=== PATIENT | male | born 1935 | race Caucasian/White ===

== ENCOUNTER → 2017-01-08 | Outpatient (CLI) | payer MEDICARE ==
[2016-06-03 08:57] VITALS: BP 121/67
[~2017-01-08] MED LIST: ALLO300T PO; ASPI-630 PO; ASPI325T8 PO; ATEN25TA PO; ATOR40TA59 PO; BUPR150T6 PO; CLOP75TA PO; COLC0.6T34 PO; FISH1CAP PO; GABA-586 PO; HYDR10TA2 PO; IBUP-1027 PO; IBUP200T58 PO; LISI40TA PO; MULT-658 PO; MULT1TAB52 PO; NIFE60TA16 PO; OMEG1CAP38 PO; TRIA100C7 PO; [UNRECOGNIZED DRUG - OTHER]; [UNRECOGNIZED DRUG - OTHER]
--- NOTE | 2017-01-08 12:53 | CARD ---
APPROVED REPORT EXAM: Two-dimensional and M-mode echocardiogram with Doppler and color Doppler. Other Information Quality : GoodHR: 67bpm Rhythm : NSR INDICATION Cardiac Disease: CAD RISK FACTORS Hypertension Hyperlipidemia Family History 2D DIMENSIONS RVDd3.0 (2.9-3.5cm)Left Atrium(2D)4.5 (1.6-4.0cm) IVSd1.0 (0.7-1.1cm)Aortic Root(2D)3.7 (2.0-3.7cm) LVDd5.3 (3.9-5.9cm)LVOT Diameter2.2 (1.8-2.4cm) PWd1.0 (0.7-1.1cm)LVDs3.6 (2.5-4.0cm) FS (%) 31.7 %SV81.6 ml LVEF(%)59.2 (>50%) Aortic Valve AoV Peak Jose.123.5cm/sAoV VTI29.0cm AO Peak GR.6.1mmHgLVOT Peak Jose.115.7cm/s AO Mean GR.3mmHgAVA (VMAX)3.70cm2 Mitral Valve MV E Cjgtvwqq66.7cm/sMV E Peak Gr.3mmHg MV DECEL [id number] A Cyzjsczw33.1cm/s MV E Mean Gr.1mmHgE/A Ratio1.1 MV A [id number] Pulmonary Valve PV Peak Tkkewhqg25.7cm/s Tricuspid Valve TR P. Hfsyhcme056ph/sTR Peak Gr.30mmHg Pulmonary Vein S1 Gfswbvkn01.7cm/sD2 Bwlyywwu52.4cm/s PVa [id number] LEFT VENTRICLE The left ventricle is normal size. There is normal left ventricular wall thickness. The left ventricu lar systolic function is normal. The Ejection Fraction is 55-60%. There is normal LV segmental wall m otion. The left ventricular diastolic function and filling is normal for age. RIGHT VENTRICLE The right ventricle is normal size. There is normal right ventricular wall thickness. The right ventr icular systolic function is normal. There is a pacemaker lead in the right ventricle. ATRIA The left atrium is mildly dilated. The right atrium size is normal. The interatrial septum is intact with no evidence for an atrial septal defect or patent foramen ovale as noted on 2-D or Doppler imagi ng. AORTIC VALVE The aortic valve is mildly sclerotic. The aortic valve is trileaflet. Doppler and Color Flow revealed no significant aortic regurgitation. There is no significant aortic valvular stenosis. MITRAL VALVE Mitral annular calcification is mild. The mitral valve leaflets are thickened. There is no evidence o f mitral valve prolapse. There is no mitral valve stenosis. Doppler and Color Flow revealed mild to m oderate mitral regurgitation. The jet is posteriorly directed. TRICUSPID VALVE Doppler and Color Flow revealed mild tricuspid regurgitation. The pulmonary artery systolic pressure is estimated at 33 mmHg. There is mild pulmonary hypertension. PULMONIC VALVE The pulmonic valve is not well visualized but appears to open well. Doppler and Color Flow revealed m ild pulmonic valvular regurgitation. There is no pulmonic valvular stenosis by spectral Doppler. GREAT VESSELS The aortic root is mildly enlarged. The ascending aorta is normal in size. The pulmonary artery is no rmal. The IVC is normal in size and collapses >50% with inspiration. PERICARDIAL EFFUSION There is no evidence of significant pericardial effusion. Critical Notification Critical Value: No <Conclusion> The left ventricular systolic function is normal. The Ejection Fraction is 55-60%. There is normal LV segmental wall motion. The left atrium is mildly dilated. Mild to moderate mitral regurgitation. Mild tricuspid regurgitation. The pulmonary artery systolic pressure is estimated at 33 mmHg. There is no evidence of significant pericardial effusion.
== END | disposition home or self-care (01) ==
LOC: ECHO 09:04
PROVIDERS: ATTEND Internal Medicine Cardiovascular Disease
DX: I08.1 Rheumatic disorders of both mitral and tricuspid valves (principal)
CPT/HCPCS: 93306

== ENCOUNTER → 2017-08-03 | Outpatient (CLI) | payer MEDICARE | END | disposition home or self-care (01) | LOC: US 11:36 | DX: I70.203 Unspecified atherosclerosis of native arteries of extremities, bilateral legs (principal) | CPT/HCPCS: 93925 ==

== ENCOUNTER 2018-08-16 08:48 | Inpatient (IN) | payer MEDICARE ==
[2018-08-16] VITALS (13 sets, daily range): BP systolic 119–193; BP diastolic 68–90
[~2018-08-16] VITALS: Ht 170.2 cm; Wt 84.1 kg
[~2018-08-16 08:48] MED LIST changes: -GABA-586 PO; +GABA300C18 PO; +LISI-130 PO; -LISI40TA PO
[2018-08-16 09:08] LABS: HEMOGLOBIN 12.3 g/dL (13.0-17.5); RED BLOOD COUNT 3.71 x10^6/uL (4.30-5.70); RED CELL DISTRIBUTION WIDTH 14.1 % (11.5-14.5); WHITE BLOOD COUNT 6.7 x10^3/uL (4.0-11.0)
[2018-08-16 09:18] LABS: PROTHROMBIN TIME PATIENT 13.6 SEC (11.7-14.0)
[2018-08-16] MEDS ORDERED: ATEN50TA PO (09:18)
[2018-08-16] MEDS ORDERED: ALLO300T PO (09:18)
[2018-08-16] MEDS ORDERED: MELO7.5T29 PO (09:25)
[2018-08-16] MEDS ORDERED: GABA-585 PO (09:25)
[2018-08-16] MEDS ORDERED: GABA-689 PO (09:25)
[2018-08-16] MEDS ORDERED: CLOP75TA57 PO (09:25)
[2018-08-16] MEDS ORDERED: LISI-130 PO (09:25)
[2018-08-16] MEDS ORDERED: LIDO30CR TP (09:25)
[2018-08-16] MEDS ORDERED: ATOR40TA59 PO (09:25)
[2018-08-16] MEDS ORDERED: OMEG-117 PO (09:31)
[2018-08-16] MEDS ORDERED: ROPI1TAB PO (09:31)
[2018-08-16] MEDS ORDERED: IBUP-1027 PO (09:31)
[2018-08-16 09:33] LABS: CALCIUM 9.1 mg/dL (8.5-10.1); GFR 71.7; POTASSIUM 4.5 mmol/L (3.5-5.1)
[2018-08-16] MEDS ORDERED: LIDOCAINE 1% PF 2 ML VIAL. ONE (09:39)
[2018-08-16] MEDS ORDERED: IOHEXOL 300 MG/ML 100ML VIAL. ONE ×2 (09:39→13:59)
[2018-08-16] MEDS ORDERED: VERAPAMIL 5 MG/2 ML VIAL. ONE (13:09)
[2018-08-16] MEDS ORDERED: NITROGLYCERIN 200 MCG/2 ML SYRINGE FOR CATH/VASC LAB. ONE (13:09)
[2018-08-16] MEDS ORDERED: HEPARIN for IV BOLUS 10,000 UNIT/10 ML VIAL. ONE (13:09)
[2018-08-16] MEDS ORDERED: fentaNYL PF VIAL 100 MCG/2 ML VIAL ONE (13:09)
[2018-08-16] MEDS ORDERED: MIDAZOLAM HCL/PF 2 MG/2 ML VIAL. ONE (13:09)
[2018-08-16] MEDS ORDERED: LIDOCAINE 1% PF 2 ML VIAL. INJ ONE (14:00)
[2018-08-16] MEDS ORDERED: NITROGLYCERIN 200 MCG/2 ML SYRINGE FOR CATH/VASC LAB. IART ONE (14:00)
[2018-08-16] MEDS ORDERED: CONTRAST GIVEN. MC PRN (14:00)
[2018-08-16] MEDS ORDERED: HEPARIN for IV BOLUS 10,000 UNIT/10 ML VIAL. IART ONE (14:00)
[2018-08-16] MEDS ORDERED: IOHEXOL 300 MG/ML 100ML VIAL. IART ONE (14:00)
[2018-08-16] MEDS ORDERED: BIVALIRUDIN 250 MG VIAL. IV ONE ×2 (14:00→14:30)
[2018-08-16] MEDS ORDERED: fentaNYL PF VIAL 100 MCG/2 ML VIAL IV ONE (14:00)
[2018-08-16] MEDS ORDERED: VERAPAMIL 5 MG/2 ML VIAL. IART ONE (14:00)
[2018-08-16] MEDS ORDERED: MIDAZOLAM HCL/PF 2 MG/2 ML VIAL. IV ONE (14:00)
[2018-08-16] MEDS ORDERED: IBUPROFEN 400 MG TABLET. PO PRN (16:15)
[2018-08-16] MEDS ORDERED: hydrOXYzine 10 MG TABLET PO PRN (16:15)
--- NOTE | 2018-08-16 16:45 | NUR ---
Gonzalez catheter placed per aseptic measure. Inserted with little difficulty.
--- NOTE | 2018-08-16 16:56 | CARD ---
MR#: [id number] Date of Study: 08/16/2018 Ordering Physician: ANGELA OSBORN, Referring Physician: ANGELA OSBORN Tech: VIRGINIA LANDERS RTR APPROVED REPORT Technologist: VIRGINIA LANDERS RTR Nurse: Rosio Velez R.N. Procedure(s) performed: 1. Left heart catheterization, selective coronary angiography and left ventr iculography via right transradial approach 2. Successful complex PCI/stents placement to the right coronary artery Moderate sedation: 80 min INDICATION The indication(s) include : unstable angina . CSHA Clinical Frailty Scale [facility] Clinical Frailty Scale: Mildly Frail Heart Failure Heart Failure: No PROCEDURE NARRATIVE After explaining the risks, benefits and alternative options, informed consent was obtained from prosper ent. Patient was brought to the cardiac Rn Chemical Dependency and right wrist was prepped and draped in the usual fashion after confirming a positive modified Ankit's test. Arterial access was obtained in the mclaren thumb region t radial artery and a 6 Solomon Islander sheath was inserted. 6 Solomon Islander Camilo catheter was used to perform lef t ventriculography. Attempts to engage the coronary arteries. This catheter were unsuccessful. 6 Fren ch JL 3.5 and 6 Solomon Islander JR4 catheters were used to engage the left and right coronary arteries and sneha ective angiography was performed. FINDINGS 1. Hemodynamics: Left ventricular end-diastolic pressure of 12 mmHg. No pullback gradient across th e aortic valve. 2. Left ventriculography: Normal left ventricle systolic function with ejection fraction estimated at 60%. No significant mitral regurgitation seen. 3. Coronary angiography: a. The left main coronary artery arose from the left sinus of Valsalva, gave rise to the left anteri or descending and left circumflex arteries and did not show any significant stenosis. b. The left anterior descending artery showed widely patent previous to placed stent in the midsegme nt. c. The left circumflex artery showed 50% bifurcation lesion involving the midsegment of the left cir cumflex artery and small to medium caliber second obtuse marginal branch. The first obtuse marginal b ranch showed 30% proximal segment stenosis. d. The right coronary artery was a large and dominant vessel arising from the right sinus of Valsalv a showed 50% stenosis in the distal segment, 40% in-stent restenosis within the distal portion of the stent in the mid to distal segment. There was 80% heavily calcified lesion noted in the midsegment p roximal to the previously placed stent. INTERVENTION The right coronary artery was engaged with a 6 Solomon Islander JR4 guide catheter and the stenosis in the mids egment was crossed with a 0.014 inch Light Blue Optics Pro water guidewire. Attempts to advance balloons across t he midsegment were unsuccessful due to heavy calcification in a tortuous segment. A 6 Solomon Islander guide li ner inner catheter was then advanced and the tip was positioned in the proximal to midsegment. The st enosis was then dilated with 3.0 x 15 mm euphora balloon followed by 3.0 x 12 mm noncompliant NC euph ora balloons. Subsequently, the long calcified lesion was treated with overlapping 3.0 x18 and 3.5 x 15 mm resolute jose drug-eluting stents. Follow-up angiography showed resolution of the stenosis to 0 % with UZIEL-3 distal flow. Patient tolerated the procedure well. Hemostasis was achieved using TR ban d. There were no immediate complications. Conclusion 1. 80% heavily calcified stenosis involving the midsegment of the right coronary artery. The previou sly placed stent in the right coronary artery showed 40% in-stent restenosis and the stent in left an terior descending artery was widely patent. 2. Successful, takes PCI/drug eluting stent placement to the right coronary artery. 3. Normal left ventricle systolic function with ejection fraction estimated at 60%. Recommendations 1. Aspirin 325 mg daily for one month followed by 81 mg daily 2. Plavix 75 mg daily for preferably one year 3. Cardiovascular risk factor modification Signed by : Angela Osborn, Electronically Approved : 08/16/2018 16:55:59
--- NOTE | 2018-08-16 17:01 | PDOC ---
MODERATE SEDATION ASSESSMENT RISKS/ALTERNATIVES Risks/Alternatives Risks and alternatives of this type of sedation and procedure discussed with: RISK/ALTERNATIVES: Patient H & P ON CHART H & P H & P on chart and reviewed for co-morbid conditions and appropriate labs. H&P ON CHART: Yes STATUS PREG STATUS ASSESSED: N/A MEDS/ALLERGIES REVIEWED Meds/Allergies Reviewed Medications and Allergies including time and route of recently administered narcotics and sedatives. MEDS/ALLERGIES REVIEWED: Yes ASA RATING ASA RATING: III AIRWAY ASSESSMENT Airway Assessment Airway patency, oral function limitations, presence of caps, crowns, dentures, partials, and ability to extend neck assessed. AIRWAY ASSESSMENT: Yes MALLAMPATI SCORE MALLAMPATI SCORE: II PRE-SEDATION ASSESSMENT PRE-SEDATION ASSESSMENT: Yes ANGELA OSBORN MD Aug 16, 2018 17:01
[2018-08-16] MEDS ORDERED: IV 1/2 NORMAL SALINE 1,000 ML IV SCH (17:02)
[2018-08-16] MEDS ORDERED: NITROGLYCERIN SUBLINGUAL 0.4 MG BOTTLE OF 25. SL PRN (17:15)
--- NOTE | 2018-08-16 17:30 | NUR ---
Patient complained of bladder getting arboleda. Bleeding noticed around sanchez and not draining. Called Dr. Booth and notified and received order to consult Urology.
--- NOTE | 2018-08-16 18:00 | NUR ---
Removed prior sanchez catheter and inserted three way catheter with little difficulty. Bloody fluid drained approximately 200ml then stopped. Stopped CBI fluid. Attempted to manually irrigated without success.
--- NOTE | 2018-08-16 18:30 | NUR ---
Spoke with GISSELLE Olivia regard to unsuccessful attempts of CBI.
--- NOTE | 2018-08-16 18:59 | RAD ---
PQRS Compliance statement: One or more of the following individualized dose reduction techniques were utilized for this examination: 1. Automated exposure control. 2. Adjustment of the mA and/or kV according to patient size. 3. Use of iterative reconstruction technique. Indication:sanchez catheter not draining, non contrast, pt had heart cath today, no priors TECHNIQUE: CT abdomen and pelvis without IV contrast with multiplanar reformats. COMPARISON: None FINDINGS: Limited evaluation of solid abdominal and pelvic organs due to lack of IV contrast. Partially visualized are pacemaker leads in the right heart. Heart is normal in size. Coronary artery calcifications. No pericardial or pleural effusion. Subpleural reticular opacities in the visualized lung bases likely chronic interstitial changes. Noncontrast appearance of the liver, spleen, gallbladder, pancreas, adrenals and kidneys are within normal limits. Excreted contrast is seen opacifying the bilateral renal collecting system and bladder. No free pelvic fluid or ascites. Moderate diffuse atherosclerotic disease of the abdominal aorta and bilateral iliac arteries. No bowel obstruction. Diffuse colonic diverticulosis. Normal appendix. Urinary bladder is significantly distended. Ill-defined filling defect is seen in the bladder base. Small amount of emphysema is seen in the perirectal soft tissue. Large amount of stool is seen in the rectum. Sanchez catheter is seen with its balloon in the penile urethra. Small right inguinal hernia containing ascitic fluid. No pneumoperitoneum. Peripancreatic and heather hepatis prominent and mildly enlarged lymph nodes are seen, the largest in the heather hepatis measuring 2.8 x 1.3 cm. No suspicious bony lesion. Status post posterior fusion at L4-S1. IMPRESSION: Limited evaluation of solid abdominal and pelvic organs due to lack of IV contrast.. 1. The balloon of the Sanchez catheter is in the proximal penile urethra. 2. Distended urinary bladder and bilateral renal collecting system. 3. Perirectal and periprosthetic emphysema. Differential diagnoses includes rectal injury or prostatic urethral injury secondary to malpositioning of the Sanchez catheter. 4. Peripancreatic and heather hepatis lymph nodes, nonspecific may be reactive. 5. Ill-defined filling defect in the base of the bladder most likely hematoma. Findings discussed with david Jay RN on 08/16/2018 at C6-7 p.m. Electronically signed by: Saji Gonzalez DO (08/16/2018 6:57 PM) [facility]
--- NOTE | 2018-08-16 19:05 | NUR ---
NOTIFIED GISSELLE BASS REGARD TO CT RESULT AND RECEIVED ORDER.
--- NOTE | 2018-08-16 19:20 | NUR ---
DEFLATED THREE WAY CATHETER, ADVANCED FURTHER INTO BLADDER AND SMALL AMOUNT OF BLOODY OUT PUT DRAINED WITH BLOOD CLOTS BUT STOPPED FLOWING OUT. CALLED GISSELLE BASS TO NOTIFY.
--- NOTE | 2018-08-16 20:26 | NUR ---
KALI PITTS RETURNED CALL WILL BE IN SHORTLY TO SEE PATIENT, PT UNCOMFORTABLE AT THIS TIME, STILL NO URINE OUTPUT, WILL CONT TO MONITOR. PMRN
[2018-08-16] MEDS: MORPHINE SULFATE 4 MG/ML VIAL. IV PRN (20:45)
[2018-08-16] MEDS: ATENOLOL 50 MG TABLET. PO SCH (21:00)
[2018-08-16] MEDS ORDERED: ATORVASTATIN CALCIUM 20 MG TABLET PO SCH (21:00)
[2018-08-16] MEDS ORDERED: GABAPENTIN 400 MG CAPSULE. PO SCH (21:00)
[2018-08-16] MEDS ORDERED: ALLOPURINOL 300 MG TABLET. PO SCH (21:00)
[2018-08-16] MEDS: LIDOCAINE/PRILOCAINE TOPICAL CREAM 5GM TUBE. TP SCH (21:00)
[2018-08-16] MEDS: COLCHICINE 0.6 MG TABLET PO SCH (21:00)
[2018-08-16] MEDS: rOPINIRole 1 MG TABLET. PO SCH (21:00)
--- NOTE | 2018-08-16 21:07 | PDOC2 ---
HARRISKALI Morin CATALOGUE MAKER 08/16/187: UROLOGY CONSULT Date of Consult Date of Consult DATE: 08/16/18 TIME: 20:59 Identification/Chief Complaint Chief Complaint Bloody urine after sanchez catheter insertion, no urine return, patient is feeling full, bladder full on CT Source Source: Caregiver, Chart review, Patient History of Present Illness Reason for Visit: Patient is here for cardiac catheterization and reported a history of needing to do I and O catheterization normally. He also has a history of urethral strictures intermittently. Was given the choice of just continuing with I and O catheterization or having a Sanchez placed. He chose to have Sanchez placed and after this happened he complained of feeling full and not emptying his bladder well.. Nursing staff also noticed bloody urine in the Sanchez bag and device was not draining or functioning properly. The urine return also had a lot of clots. Orders were given to remove old Sanchez and place new 3 way sanchez, empty bladder and start CBI, but this could not be started either. They then tried to insert a 16 Divehi sanchez catheter. This was likewise unsuccessful. LOVE Iglesias attempted to cath patient times one last night around 840 pm and was unsuccessful. Finally , Dr. Oliveros was able to get a 14 maltese catheter in and since then urine has been red, but draining well from Sanchez catheter. He usually sees Dr. Dawson of the [facility] in [place] for his Urology care and does not know when his next appointment with him is. Past Medical History Renal/: Other (Urethral strictures, empties his bladder through I and O cath) Current Medications Current Medications Current Medications Allopurinol (Zyloprim) 300 mg HS PO ; Start 08/16/18 at 21:00 Aspirin (Children'S Aspirin) 81 mg DAILY PO ; Start 08/17/18 at 09:00; Stop at 09:00; Status DC Aspirin (Ecotrin) 325 mg DAILYWBKFT PO ; Start 08/17/18 at 08:00 Atenolol (Tenormin) 25 mg BID PO ; Start 08/16/18 at 21:00 Atorvastatin Calcium (Lipitor) 20 mg QHS PO ; Start 08/16/18 at 21:00 Bivalirudin (Angiomax) 250 mg 1X ONCE IV Last administered on 08/16/18at 14:52 ; Start 08/16/18 at 14:30; Stop 08/16/18 at 14:31; Status DC Bivalirudin (Angiomax) 250 mg STK-MED ONCE IV ; Start 08/16/18 at 14:00; Stop at 14:01; Status DC Bupropion HCl (Wellbutrin Xl) 150 mg DAILY PO ; Start 08/17/18 at 09:00 Clopidogrel Bisulfate (Plavix) 75 mg DAILY PO ; Start 08/17/18 at 09:00 Colchicine (Colcrys) 0.6 mg BID PO ; Start 08/16/18 at 21:00 Fentanyl Citrate (Fentanyl 2ml Vial) 50 mcg 1X ONCE IV Last administered on at 14:53; Start 08/16/18 at 14:00; Stop 08/16/18 at 14:01; Status DC Fentanyl Citrate (Fentanyl 2ml Vial) 100 mcg STK-MED ONCE .ROUTE ; Start at 13:09; Stop 08/16/18 at 13:10; Status DC Fish Oil (Fish Oil) 1,000 mg DAILY PO ; Start 08/17/18 at 09:00 Gabapentin (Neurontin) 100 mg BID92 PO ; Start 08/17/18 at 09:00 Gabapentin (Neurontin) 1,200 mg HS PO ; Start 08/16/18 at 21:00 Heparin Sodium (Porcine) (Heparin Sodium) 2,500 unit 1X ONCE IART Last administered on 08/16/18at 14:54; Start 08/16/18 at 14:00; Stop 08/16/18 at 14:01 ; Status DC Heparin Sodium (Porcine) (Heparin Sodium) 10,000 unit STK-MED ONCE .ROUTE ; Start 08/16/18 at 13:09; Stop 08/16/18 at 13:10; Status DC Heparin Sodium/ Sodium Chloride 500 ml @ As Directed STK-MED ONCE .ROUTE ; Start 08/16/18 at 09:39; Stop 08/16/18 at 09:40; Status DC Heparin Sodium/ Sodium Chloride (HEPARIN for ARTERIAL LINE FLUSH) 1,000 unit 1X ONCE IART Last administered on 08/16/18at 14:51; Start 08/16/18 at 14:00; Stop 08/16/18 at 14:01; Status DC Hydroxyzine HCl (Atarax) 10 mg HS PRN PO ITCHING; Start 08/16/18 at 16:15 Ibuprofen (Motrin) 400 mg PRN Q6HRS PRN PO INFLAMMATION; Start 08/16/18 at 16: 15 Info (CONTRAST GIVEN -- Rx MONITORING) 1 each PRN DAILY PRN MC SEE COMMENTS; Start 08/16/18 at 14:00; Stop 08/18/18 at 13:59 Iohexol (Omnipaque 300 Mg/ml) 100 ml 1X ONCE IART Last administered on at 14:51; Start 08/16/18 at 14:00; Stop 08/16/18 at 14:01; Status DC Iohexol (Omnipaque 300 Mg/ml) 100 ml STK-MED ONCE .ROUTE ; Start 08/16/18 at 09: 39; Stop 08/16/18 at 09:40; Status DC Iohexol (Omnipaque 300 Mg/ml) 100 ml STK-MED ONCE .ROUTE ; Start 08/16/18 at 13: 59; Stop 08/16/18 at 14:00; Status DC Lidocaine HCl (Xylocaine-Mpf 1% 2ml Vial) 0.5 ml 1X ONCE INJ Last administered on 08/16/18at 14:52; Start 08/16/18 at 14:00; Stop 08/16/18 at 14:01 ; Status DC Lidocaine HCl (Xylocaine-Mpf 1% 2ml Vial) 2 ml STK-MED ONCE .ROUTE ; Start 08/16 at 09:39; Stop 08/16/18 at 09:40; Status DC Lidocaine/ Prilocaine (Emla) 1 loren TID TP ; Start 08/16/18 at 21:00 Lisinopril (Prinivil) 20 mg DAILY PO ; Start 08/17/18 at 09:00 Midazolam HCl (Versed) 1 mg 1X ONCE IV Last administered on 08/16/18at 14:53; Start 08/16/18 at 14:00; Stop 08/16/18 at 14:01; Status DC Midazolam HCl (Versed) 2 mg STK-MED ONCE .ROUTE ; Start 08/16/18 at 13:09; Stop 08/16/18 at 13:10; Status DC Morphine Sulfate (Morphine Sulfate) 2 mg PRN Q4HRS PRN IV PAIN; Start 08/16/18 at 20:30 Multivitamins (Thera M Plus) 1 tab DAILY PO ; Start 08/17/18 at 09:00 Nifedipine (Procardia Xl) 60 mg DAILY PO ; Start 08/17/18 at 09:00 Nitroglycerin (Nitroglycerin) 200 mcg 1X ONCE IART Last administered on at 14:51; Start 08/16/18 at 14:00; Stop 08/16/18 at 14:01; Status DC Nitroglycerin (Nitroglycerin) 200 mcg STK-MED ONCE .ROUTE ; Start 08/16/18 at 13 :09; Stop 08/16/18 at 13:10; Status DC Nitroglycerin (Nitrostat) 0.4 mg PRN Q5MIN PRN SL CHEST PAIN; Start 08/16/18 at 17:15 Ropinirole HCl (Requip) 1 mg BID PO ; Start 08/16/18 at 21:00 Sodium Chloride 1,000 ml @ 100 mls/hr Q10H IV ; Start 08/16/18 at 17:02 Verapamil HCl (Verapamil) 2.5 mg 1X ONCE IART Last administered on 08/16/18at 14:53; Start 08/16/18 at 14:00; Stop 08/16/18 at 14:01; Status DC Verapamil HCl (Verapamil) 5 mg STK-MED ONCE .ROUTE ; Start 08/16/18 at 13:09; Stop 08/16/18 at 13:10; Status DC Allergies Allergies: Coded Allergies: tamsulosin (Verified Adverse Reaction, Severe, syncope, 06/03/16) ROS Review Of Systems: CONSTITUTIONAL: No fever or chills EYES: No recent changes SKIN: No rash or itching CARDIOVASCULAR: No chest pain, syncope, palpitations, or edema RESPIRATORY: No SOB or cough GASTROINTESTINAL: + bladder pain, feels full. NEUROLOGICAL: No headaches or weakness ENDOCRINE: No cold or heat intolerance GENITOURINARY: + hematuria after catheter placement. MUSCULOSKELETAL: No back pain or joint pain LYMPHATICS: No enlarged lymph nodes PSYCHIATRIC: No anxiety or depression Physical Exam Physical Exam: General: Pleasant, no acute distress, well groomed Eyes: conjunctiva anicteric, eyes full range of motion ENT: moist oral mucosa, normal dentition Neck: Trachea midline, no masses Respiratory: unlabored breathing, not using accessory muscles, Abdomen: distended bladder. : + Uncirc phallus, normal meatus. Some blood oozing from meatus. Skin: no rashes or skin lesions on visualized skin Psych: normal mood, affect. Alert and oriented x 3. Vitals VITALS Vital Signs Date Time Temp Pulse Resp B/P (MAP) Pulse Ox O2 Delivery O2 Flow Rate FiO2 08/16/18 19:10 97.7 60 20 163/78 (106) 100 Room Air 97.7 08/16/18 15:30 2.0 Labs Labs Laboratory Tests Test 08/16/18 09:00 White Blood Count 6.7 x10^3/uL (4.0-11.0) Red Blood Count 3.71 x10^6/uL (4.30-5.70) Hemoglobin 12.3 g/dL (13.0-17.5) Hematocrit 36.0 % (39.0-53.0) Mean Corpuscular Volume 97 fL (79-100) Mean Corpuscular Hemoglobin 33 pg (25-35) Mean Corpuscular Hemoglobin Concent 34 g/dL (31-37) Red Cell Distribution Width 14.1 % (11.5-14.5) Platelet Count 209 x10^3/uL (140-400) Prothrombin Time 13.6 SEC (11.7-14.0) Prothromb Time International Ratio 1.1 (0.8-1.1) Sodium Level 138 mmol/L (136-145) Potassium Level 4.5 mmol/L (3.5-5.1) Chloride Level 101 mmol/L (98-107) Carbon Dioxide Level 26 mmol/L (21-32) Anion Gap 11 (6-14) Blood Urea Nitrogen 17 mg/dL (8-26) Creatinine 1.0 mg/dL (0.7-1.3) Estimated GFR (Cockcroft-Gault) 71.7 Glucose Level 95 mg/dL (70-99) Calcium Level 9.1 mg/dL (8.5-10.1) Laboratory Tests Test 08/16/18 09:00 White Blood Count 6.7 x10^3/uL (4.0-11.0) Red Blood Count 3.71 x10^6/uL (4.30-5.70) Hemoglobin 12.3 g/dL (13.0-17.5) Hematocrit 36.0 % (39.0-53.0) Mean Corpuscular Volume 97 fL (79-100) Mean Corpuscular Hemoglobin 33 pg (25-35) Mean Corpuscular Hemoglobin Concent 34 g/dL (31-37) Red Cell Distribution Width 14.1 % (11.5-14.5) Platelet Count 209 x10^3/uL (140-400) Prothrombin Time 13.6 SEC (11.7-14.0) Prothromb Time International Ratio 1.1 (0.8-1.1) Sodium Level 138 mmol/L (136-145) Potassium Level 4.5 mmol/L (3.5-5.1) Chloride Level 101 mmol/L (98-107) Carbon Dioxide Level 26 mmol/L (21-32) Anion Gap 11 (6-14) Blood Urea Nitrogen 17 mg/dL (8-26) Creatinine 1.0 mg/dL (0.7-1.3) Estimated GFR (Cockcroft-Gault) 71.7 Glucose Level 95 mg/dL (70-99) Calcium Level 9.1 mg/dL (8.5-10.1) Images Images IMPRESSION: Limited evaluation of solid abdominal and pelvic organs due to lack of IV contrast.. 1. The balloon of the Sanchez catheter is in the proximal penile urethra. 2. Distended urinary bladder and bilateral renal collecting system. 3. Perirectal and periprosthetic emphysema. Differential diagnoses includes rectal injury or prostatic urethral injury secondary to malpositioning of the Sanchez catheter. 4. Peripancreatic and heather hepatis lymph nodes, nonspecific may be reactive. 5. Ill-defined filling defect in the base of the bladder most likely hematoma. Assessment/Plan Assessment/Plan There have been a total of four unsuccessful catheter placement attempts, 3 by Nurses and 1 by BLADDER TRIMMER Harris Oliveros has been notified and will do a bedside cystoscopy with catheter placement tonight. lunchroom supervisor notified and equipment requested.. Consent entered. Will check on patient in the morning. STEPHEN OLIVEROS MD 08/18/18 1618: UROLOGY CONSULT Assessment/Plan Assessment/Plan Patient seen and examined. See my separate note. KALI IGLESIAS APRN Aug 16, 2018 21:07 STEPHEN OLIVEROS MD Aug 18, 2018 16:18
--- NOTE | 2018-08-16 21:22 | NUR ---
PT REFUSED HS MEDICATIONS AT THIS TIME. MORPHINE 2MG IV GIVEN FOR PAIN, WILL CONT TO MONITOR PMRN
--- NOTE | 2018-08-16 22:03 | PDOC4 ---
PROCEDURE Procedure Nursing staff unable to palce sanchez catheter. CT obtained, which shows distended bladder and sanchez inflated in urethra. Patient reports history of urethral stricture disease, self catheterizes twice daily. He goes to [facility] for urology care. 14 Fr coude catheter placed under sterile technique, with return of approx 800 ml light red urine. Keep in sanchez x 1 week to allow healing of urethral injury. STEPHEN OLIVEROS MD Aug 16, 2018 22:03
--- NOTE | 2018-08-16 22:56 | NUR ---
AT [address] OLIVEROS HERE PLACED A 18FR COUDE WITH SOME DIFFICULTY. WHILE INSERTING COUDE PT EXPELLED A LARGE BLOOD CLOT FROM PENIS, THEN MEEHAN COLORED WAS NOTED IN CATHETER, PT VERBALIZED RELIEF. WILL CONT TO MONITOR PT. CALL LIGHT IN PLACE. PMRN
[2018-08-17 03:00] VITALS: BP 132/60
[2018-08-17] MEDS: MORPHINE SULFATE 4 MG/ML VIAL. IV PRN (03:25)
--- NOTE | 2018-08-17 05:44 | NUR ---
addendum: DR OLIVEROS DOES NOT WISH TO START CBI AT THIS TIME. PMRN
[2018-08-17 07:00] VITALS: BP 153/71
[2018-08-17] MEDS ORDERED: ASPIRIN ENTERIC COATED 325 MG TABLET.DR. PO SCH (08:00)
[2018-08-17 08:41] LABS: BASO # 0.1 x10^3/uL (0.0-0.2); BASO % 1 % (0-3); EOS % 0 % (0-3); HEMATOCRIT 33.8 % (39.0-53.0); HEMOGLOBIN 11.6 g/dL (13.0-17.5); LYMPH # 1.5 x10^3/uL (1.0-4.8); LYMPH % 14 % (24-48); MEAN CORPUSCULAR HEMOGLOBIN 33 pg (25-35); MEAN CORPUSCULAR HGB CONC 34 g/dL (31-37); MEAN CORPUSCULAR VOLUME 97 fL (79-100); MONO # 0.6 x10^3/uL (0.0-1.1); MONO % 6 % (0-9); NEUT # 8.6 x10^3uL (1.8-7.7); NEUT % 79 % (31-73); PLATELET COUNT 227 x10^3/uL (140-400); RED BLOOD COUNT 3.49 x10^6/uL (4.30-5.70); RED CELL DISTRIBUTION WIDTH 14.4 % (11.5-14.5); WHITE BLOOD COUNT 10.8 x10^3/uL (4.0-11.0)
[2018-08-17] MEDS: ATENOLOL 50 MG TABLET. PO SCH (08:47)
[2018-08-17] MEDS: GABAPENTIN 100 MG CAPSULE. PO SCH ×2 (08:48→14:00)
[2018-08-17] MEDS: rOPINIRole 1 MG TABLET. PO SCH (08:48)
[2018-08-17] MEDS: COLCHICINE 0.6 MG TABLET PO SCH (08:48)
[2018-08-17] MEDS ORDERED: OMEGA-3 FATTY ACIDS/FISH OIL 1,000 MG CAPSULE. PO SCH (09:00)
[2018-08-17] MEDS ORDERED: buPROPion XL 150 MG TAB.ER.24H. PO SCH (09:00)
[2018-08-17] MEDS ORDERED: MULTIVITAMIN with MINERAL TABLET. PO SCH (09:00)
[2018-08-17] MEDS: LIDOCAINE/PRILOCAINE TOPICAL CREAM 5GM TUBE. TP SCH ×2 (09:00→14:00)
[2018-08-17] MEDS ORDERED: ASPIRIN CHEWABLE 81 MG TABLET. PO SCH (09:00)
[2018-08-17] MEDS ORDERED: CLOPIDOGREL BISULFATE 75 MG TABLET PO SCH (09:00)
[2018-08-17] MEDS ORDERED: LISINOPRIL 20 MG TABLET PO SCH (09:00)
[2018-08-17 10:40] VITALS: BP 134/63
[2018-08-17 14:40] VITALS: BP 159/77
--- NOTE | 2018-08-17 14:51 | NUR ---
SS following up with discharge planning. SS reviewed pt chart. Pt is from home with spouse and currently on room air. Pt had cardiac cath on 08/16/2018. No discharge needs noted at this time. SS will continue to follow for pending discharge needs.
--- NOTE | 2018-08-17 14:55 | PDOC ---
SUBJECTIVE Subjective Patient may be going home later today. Would like to know if he can go and what to do about the catheter when he does leave. OBJECTIVE Objective Physical Exam: General appearance: Alert and Oriented Head: Normocephalic, without obvious abnormality Eyes: conjunctivae/corneas clear. PERRL, EOM's intact. Fundi benign Back: negative, no flank pain bilaterally Lungs: Regular respirations, non labored breathing Abdomen: soft, non-tender. No masses, no organomegaly Pelvic: +uncirc phallus with 14 [address] catheter in place draining red tinged urine. No clots noted. Device working well. Vital Signs Vital Signs Date Time Temp Pulse Resp B/P (MAP) Pulse Ox O2 Delivery O2 Flow Rate FiO2 08/17/18 14:40 98.2 61 18 159/77 (104) 98 Room Air 98.2 08/17/18 10:40 98.2 60 18 134/63 (86) 99 Room Air 98.2 08/17/18 08:47 66 153/71 08/17/18 08:47 66 153/71 08/17/18 08:46 66 153/71 08/17/18 08:00 Room Air 08/17/18 07:33 18 97 Room Air 08/17/18 07:00 98.5 66 18 153/71 (98) 97 Room Air 98.5 08/17/18 03:25 Room Air 08/17/18 03:00 98.4 68 18 132/60 (84) 97 Room Air 98.4 08/16/18 22:30 97.9 62 20 154/71 (98) 100 Room Air 97.9 08/16/18 20:45 Room Air 08/16/18 19:30 Room Air 08/16/18 19:10 97.7 60 20 163/78 (106) 100 Room Air 97.7 08/16/18 17:00 59 119/69 (86) 08/16/18 16:45 60 186/88 (120) 08/16/18 16:30 60 193/88 (123) 08/16/18 16:15 60 168/85 (112) 08/16/18 16:00 61 187/90 (122) 99 08/16/18 15:45 60 191/89 (123) 98 08/16/18 15:30 Room Air 2.0 08/16/18 15:30 60 193/88 (123) 08/16/18 15:15 60 158/74 (102) 08/16/18 15:00 97.6 60 18 175/79 (111) 99 Room Air 97.6 08/16/18 14:54 59 15 100 Nasal Cannula 2.0 08/16/18 14:53 15 99 Nasal Cannula 2.0 08/16/18 14:53 59 I & O Intake and Output 08/17/18 07:00 Intake Total 1140 ml Output Total 2350 ml Balance -1210 ml Intake Oral 1140 ml Output Urine Total 2350 ml PHYSICAL EXAM Physical Exam Physical Exam: General appearance: Alert and Oriented Head: Normocephalic, without obvious abnormality Eyes: conjunctivae/corneas clear. PERRL, EOM's intact. Fundi benign Back: negative, no flank pain bilaterally Lungs: Regular respirations, non labored breathing Abdomen: soft, non-tender. No masses, no organomegaly Pelvic: +uncirc phallus with 14 FR Gonzalez catheter in place draining red tinged urine. No clots noted. Device working well. ASSESSMENT/PLAN Assessment/Plan Hematuria with Gonzalez in place: Recommend he keep in place for one week. Ok for patient to go home as long as he leaves with Gonzalez in place. Patient may follow up with Dr. Dawson, his regular Urologist at the [facility]. Recommend follow up in the next 1-2 weeks for removal, although I did explain to the patient that Gonzalez catheters are safe to keep in place up to thirty days. Nursing may provide leg bags and additional night bags/leg straps, teach catheter care prior to discharge. Discussed with patient that urine will likely remain bloody over the next 2-3 days, but should eventually lighten to a pinkish then dark yellow over the next week. Please call Dr. Dawson for feelings of fullness, or if catheter not draining properly Pt may also visit the ER if this becomes a problem after hours. COMMENT Lab Laboratory Tests Test 08/17/18 08:30 White Blood Count 10.8 x10^3/uL (4.0-11.0) Red Blood Count 3.49 x10^6/uL (4.30-5.70) Hemoglobin 11.6 g/dL (13.0-17.5) Hematocrit 33.8 % (39.0-53.0) Mean Corpuscular Volume 97 fL (79-100) Mean Corpuscular Hemoglobin 33 pg (25-35) Mean Corpuscular Hemoglobin Concent 34 g/dL (31-37) Red Cell Distribution Width 14.4 % (11.5-14.5) Platelet Count 227 x10^3/uL (140-400) Neutrophils (%) (Auto) 79 % (31-73) Lymphocytes (%) (Auto) 14 % (24-48) Monocytes (%) (Auto) 6 % (0-9) Eosinophils (%) (Auto) 0 % (0-3) Basophils (%) (Auto) 1 % (0-3) Neutrophils # (Auto) 8.6 x10^3uL (1.8-7.7) Lymphocytes # (Auto) 1.5 x10^3/uL (1.0-4.8) Monocytes # (Auto) 0.6 x10^3/uL (0.0-1.1) Eosinophils # (Auto) 0.0 x10^3/uL (0.0-0.7) Basophils # (Auto) 0.1 x10^3/uL (0.0-0.2) KALI IGLESIAS APRN Aug 17, 2018 14:55
--- NOTE | 2018-08-17 15:03 | PDOC3 ---
LESLEE MULLINS VISUAL BASIC .NET DEVELOPER 08/17/18 1503: Discharge Summary Visit Information Date of Admission: Aug 16, 2018 Date of Discharge: Aug 17, 2018 Admitting Diagnosis: CAD, BPH/urinary retention with chronic straight cath Final Diagnosis CAD, S/P PCI/JOI to RCA, BPH, hematuria, urethral trauma with sanchez insertion Brief Hospital Course Allergies Allergies Coded Allergies Type Severity Reaction Last Updated Verified tamsulosin Adverse Reaction Severe syncope 06/03/16 Yes Vital Signs Vital Signs Date Time Temp Pulse Resp B/P (MAP) Pulse Ox O2 Delivery O2 Flow Rate FiO2 08/17/18 14:40 98.2 61 18 159/77 (104) 98 Room Air 98.2 08/16/18 15:30 2.0 Lab Results Laboratory Tests Test 08/16/18 09:00 08/17/18 08:30 White Blood Count 6.7 x10^3/uL (4.0-11.0) 10.8 x10^3/uL (4.0-11.0) Red Blood Count 3.71 x10^6/uL (4.30-5.70) 3.49 x10^6/uL (4.30-5.70) Hemoglobin 12.3 g/dL (13.0-17.5) 11.6 g/dL (13.0-17.5) Hematocrit 36.0 % (39.0-53.0) 33.8 % (39.0-53.0) Mean Corpuscular Volume 97 fL (79-100) 97 fL (79-100) Mean Corpuscular Hemoglobin 33 pg (25-35) 33 pg (25-35) Mean Corpuscular Hemoglobin Concent 34 g/dL (31-37) 34 g/dL (31-37) Red Cell Distribution Width 14.1 % (11.5-14.5) 14.4 % (11.5-14.5) Platelet Count 209 x10^3/uL (140-400) 227 x10^3/uL (140-400) Prothrombin Time 13.6 SEC (11.7-14.0) Prothromb Time International Ratio 1.1 (0.8-1.1) Sodium Level 138 mmol/L (136-145) Potassium Level 4.5 mmol/L (3.5-5.1) Chloride Level 101 mmol/L (98-107) Carbon Dioxide Level 26 mmol/L (21-32) Anion Gap 11 (6-14) Blood Urea Nitrogen 17 mg/dL (8-26) Creatinine 1.0 mg/dL (0.7-1.3) Estimated GFR (Cockcroft-Gault) 71.7 Glucose Level 95 mg/dL (70-99) Calcium Level 9.1 mg/dL (8.5-10.1) Neutrophils (%) (Auto) 79 % (31-73) Lymphocytes (%) (Auto) 14 % (24-48) Monocytes (%) (Auto) 6 % (0-9) Eosinophils (%) (Auto) 0 % (0-3) Basophils (%) (Auto) 1 % (0-3) Neutrophils # (Auto) 8.6 x10^3uL (1.8-7.7) Lymphocytes # (Auto) 1.5 x10^3/uL (1.0-4.8) Monocytes # (Auto) 0.6 x10^3/uL (0.0-1.1) Eosinophils # (Auto) 0.0 x10^3/uL (0.0-0.7) Basophils # (Auto) 0.1 x10^3/uL (0.0-0.2) Laboratory Tests Test 08/17/18 08:30 White Blood Count 10.8 x10^3/uL (4.0-11.0) Red Blood Count 3.49 x10^6/uL (4.30-5.70) Hemoglobin 11.6 g/dL (13.0-17.5) Hematocrit 33.8 % (39.0-53.0) Mean Corpuscular Volume 97 fL (79-100) Mean Corpuscular Hemoglobin 33 pg (25-35) Mean Corpuscular Hemoglobin Concent 34 g/dL (31-37) Red Cell Distribution Width 14.4 % (11.5-14.5) Platelet Count 227 x10^3/uL (140-400) Neutrophils (%) (Auto) 79 % (31-73) Lymphocytes (%) (Auto) 14 % (24-48) Monocytes (%) (Auto) 6 % (0-9) Eosinophils (%) (Auto) 0 % (0-3) Basophils (%) (Auto) 1 % (0-3) Neutrophils # (Auto) 8.6 x10^3uL (1.8-7.7) Lymphocytes # (Auto) 1.5 x10^3/uL (1.0-4.8) Monocytes # (Auto) 0.6 x10^3/uL (0.0-1.1) Eosinophils # (Auto) 0.0 x10^3/uL (0.0-0.7) Basophils # (Auto) 0.1 x10^3/uL (0.0-0.2) Brief Hospital Course Mr. Jessica is a 82 yo male admitted for planned. LHC. He was noted with UA features prompting LHC. He had a successful PCI/JOI to the RCA. mid segment. He also had 40 % in stent restenosis to his previous RCA stent and his previous LAD stent was patent. This through righ transradial approach and the site is intact, no erythema or swelling and right hand neurovascular status is intact. No significant ecopites overnight and no CP no SOA overnight. VSS. He does have chronic neurogenic bladder requiring intermittent straight cath that he does himself at home. As an inpt, sanchez cath to DD was attempted several times and one was placed but pt still had urinary retention and developed hematuria and per CT the sanchez balloon was not in the bladder but in the proximal urethra. This prompted cystoscopy and noted urethral trauma with clot evacuation and coude catheter was placed by urologist. Pt remains to have hematuria and pt is in no distress or significant pain and to keep his sanchez catheter to DD for at least another week per urlogy recommendation and follow up with his outpt urologist Dr. Dawson as an outpt. This was discussed with urologist and concur to DC to home today. DAPT in place with low hernandez ECASA 81 instead of 325 mg and also with plavix. Continue with secondary prevention measures. Follow up in office in 4 weeks. Encouraged cardiac rehab. Discharge Information Condition at Discharge: Stable Follow Up: Weeks (4) Disposition/Orders: D/C to Home, Instructions/Orders (Follow up with urology as indicated) Scheduled Allopurinol (Allopurinol) 300 Mg Tablet, 1 TAB PO HS for Gout, #30 Ref 5 ( Reported) Entered as Reported by: RHONDA NICOLE on 2/26/19 0918 Last Taken: Unknown Dose on 08/15/18 Last Action: Continued on 08/16/181618 by Pierre Tiffany Aspirin (Aspirin) 81 Mg Tab.chew, 1 TAB PO DAILY, #30 Ref 3 (Reported) Entered as Reported by: DIAZ REESE on 03/02/16 0647 Last Taken: Unknown Dose on 08/16/18 Last Action: Continued on 08/16/181618 by [facility] Atenolol (Atenolol) 50 Mg Tablet, 0.5 TAB PO BID for HTN, #30 Ref 5 (Reported) Entered as Reported by: RHONDA NICOLE on 08/16/18917 Last Taken: Unknown Dose on 08/16/18 Last Action: Continued on 08/16/181618 by [facility] Atorvastatin Calcium (Atorvastatin Calcium) 40 Mg Tablet, 0.5 TAB PO HS for Cholesterol, #30 Ref 5 (Reported) Entered as Reported by: RHONDA NICOLE on 08/16/18924 Last Taken: Unknown Dose on 08/15/18 Last Action: Continued on 08/16/181618 by [facility] Bupropion Hcl (Bupropion Xl) 150 Mg Tab.er.24h, 1 TAB PO DAILY, #30 (Reported) Entered as Reported by: DIAZ REESE on 08/30/15644 Last Taken: Unknown Dose on 08/16/18 Last Action: Continued on 08/16/181618 by [facility] Clopidogrel Bisulfate (Plavix) 75 Mg Tablet, 1 TAB PO DAILY for Stents, #90 Ref 1 (Reported) Entered as Reported by: RHONDA NICOLE on 08/16/18924 Last Taken: Unknown Dose on 08/16/18 Last Action: Continued on 08/16/181618 by [facility] Colchicine (Colcrys) 0.6 Mg Tablet, 1 TAB PO BID, #30 Ref 3 (Reported) Entered as Reported by: DIAZ REESE on 08/30/15641 Last Taken: Unknown Dose on 08/16/18 Last Action: Continued on 08/16/181618 by [facility] Gabapentin (Gabapentin ) 100 Mg Capsule, 100 MG PO BID for Neuropathy, ( Reported) Entered as Reported by: RHONDA NICOLE on 08/16/18924 Last Taken: Unknown Dose on 08/16/18 Last Action: Continued on 08/16/181618 by [facility] Gabapentin (Gabapentin ) 400 Mg Capsule, 3 CAP PO HS for NEUROGENIC PAIN, ( Reported) Entered as Reported by: RHONDA NICOLE on 08/16/18924 Last Action: Continued on 08/16/181618 by Pierre Allen Hydroxyzine Hcl (Hydroxyzine Hcl) 10 Mg Tablet, 10 MG PO HS, (Reported) Entered as Reported by: DIAZ REESE on 08/30/15644 Last Taken: Unknown Dose on 08/15/18 Last Action: Converted on 08/16/181618 by [facility] Lidocaine/Prilocaine (Lidocaine-Prilocaine Cream) 30 Gm Cream..g., 1 ART TP TID for feet pain., #30 Ref 1 (Reported) Entered as Reported by: RHONDA NICOLE on 08/16/18924 Last Taken: Unknown Dose on 08/15/18 Last Action: Continued on 08/16/181618 by [facility] Lisinopril (Lisinopril) 40 Mg Tablet, 0.5 TAB PO DAILY for HTN, #30 Ref 5 ( Reported) Entered as Reported by: RHONDA NICOLE on 08/16/18924 Last Taken: Unknown Dose on 08/16/18 Last Action: Continued on 08/16/181618 by Pierre Tiffany Meloxicam (Meloxicam) 7.5 Mg Tablet, 1 TAB PO DAILY for pain and inflammation., #30 Ref 2 (Reported) Entered as Reported by: RHONDA NICOLE on 08/16/18924 Last Taken: Unknown Dose on 08/15/18 Last Action: New Order on 08/16/18924 by RHONDA NICOLE Multivitamin (Multivitamins) 1 Each Tablet, 1 TAB PO DAILY, #90 Ref 3 (Reported) Entered as Reported by: DIAZ REESE on 08/30/15644 Last Taken: Unknown Dose on 08/15/18 Last Action: Converted on 08/16/181618 by [facility] Nifedipine (Nifedipine Er) 60 Mg Tab.er.24, 1 TAB PO DAILY, #30 Ref 5 (Reported) Entered as Reported by: DIAZ REESE on 3/11/16 0642 Last Taken: Unknown Dose on 08/16/18 Last Action: Converted on 08/16/181618 by Pierre Allen Ropinirole Hcl (Requip) 1 Mg Tablet, 1 TAB PO BID for restless leg syndrome, # 30 Ref 2 (Reported) Entered as Reported by: RHONDA NICOLE on 08/16/18930 Last Taken: Unknown Dose on 08/15/18 Last Action: Converted on 08/16/181618 by Pierre Allen Discontinued Medications Ibuprofen (Ibuprofen) 400 Mg Tablet, 400 MG PO PRN Q6HRS PRN for INFLAMMATION, ( Reported) Entered as Reported by: RHONDA NICOLE on 08/16/18930 Last Action: Continued on 08/16/181618 by Pierre Allen [place]-3/Dha/Epa/Fish Oil (Fish Oil 1,200 mg Softgel) 1 Each Capsule., 1 CAP PO BID for supplement, (Reported) Entered as Reported by: RHONDA NICOLE on 08/16/18930 Last Taken: Unknown Dose on 08/16/18 Last Action: Converted on 08/16/181618 by Pierre Allen Patient Instructions Patient Instructions GENERAL INSTRUCTIONS: 1. Your dressing should be removed prior to leaving the hospital. 2. It is OK to shower the day after your procedure. 3. If you received stents, be sure to carry your stent information card with you in your wallet/purse at all times. 4. Call the office immediately at [phone] if you notice any fever or if there is redness, worsening tenderness/pain, increased bruising, or drainage from the puncture site. 5. Should you have bleeding from the site, lie down immediately & put pressure on the site. The pressure should be hard enough to stop the bleeding. Have the nearest person call 911. DO NOT try to drive to the ER with active bleeding. 6. If you notice a change in color, coolness to touch, or loss of feeling in the affected extremity, come to the emergency room. Please have someone drive you or call 911 if no one is available. DO NOT drive yourself. 7. If you normally take glucophage (metformin), please do not take this medicine for 48 hours following your procedure. 8. DO NOT STOP TAKING YOUR PLAVIX OR ASPIRIN UNLESS IT IS CLEARED BY A LOG PROCESSOR OPERATOR OF YOUR EMERGENCY MEDICINE MEDICAL DIRECTOR AT OUR OFFICE. 9. QUIT SMOKING: the [place] [employer], [place] [employer], & [place] [employer] have cessation resources available on their websites 10. Please have someone available to drive you home from the hospital as you may be limited by sedation medications given during the procedure. Radial Artery (Wrist) access: 1. No pushing, pulling, lifting, typing, or anything that requires repetitive use/movement of the affected wrist for 3 days following your procedure. 2. OK to drive the day following your procedure. (This is because of effects of sedating medications.) Call the office at [phone] for any questions or concerns. ANGELA OSBORN MD 08/17/183: Discharge Summary Brief Hospital Course Brief Hospital Course Patient seen and examined. Agree with BIRTH CERTIFICATE CLERK's assessment and plan. s/p PCI/JOI to RCA yesterday, chest pain free. Tele did not show any arrhythmias. Continue management of hematuria per urology team. Continue DAPT and follow up with our office in 4 weeks. LESLEE MULLINS APRN Aug 17, 2018 15:03 ANGELA OSBORN MD Aug 17, 2018 22:04
--- NOTE | 2018-08-17 16:31 | NUR ---
DISCHARGING PATIENT TO HOME WITH TANG CATHETER, BAG CHANGED TO A LEG BAG. PIV AND HEART MONITOR REMOVED. AWAITS A RIDE HOME.
--- NOTE | 2018-08-17 16:55 | NUR ---
PATIENT ESCORTED PER WHEELCHAIR TO FRONT ENTRANCE INTO A PRIVATE VEHICLE.
[2018-10-19] MEDS ORDERED: CIPR250T30 PO (13:57)
[2018-10-19] MEDS ORDERED: IPRA3AMP29 NEB (13:57)
[2018-10-19] MEDS ORDERED: LACT1CAP19 PO (13:58)
[2018-10-19] MEDS ORDERED: ASCO500T2 PO (13:58)
[2018-10-19] MEDS ORDERED: ACET500T68 PO (13:58)
[2018-10-19] MEDS ORDERED: LABE200T4 PO (13:58)
[2018-10-19] MEDS ORDERED: FERR325T72 PO (13:58)
== END 2018-08-17 17:15 | disposition home or self-care (01) | DRG 247 ==
LOC: CCL 08:48 → 2 SOUTH 14:04
PROVIDERS: ADMIT Internal Medicine Cardiovascular Disease; ATTEND Internal Medicine Cardiovascular Disease
PROC: 027035Z Dilation of Coronary Artery, One Artery with Two Drug-eluting Intraluminal Devices, Percutaneous Approach (ICD-10-PCS; principal; 2018-08-16)
PROC: 0TCD8ZZ Extirpation of Matter from Urethra, Via Natural or Artificial Opening Endoscopic (ICD-10-PCS; 2018-08-16)
PROC: 4A023N7 Measurement of Cardiac Sampling and Pressure, Left Heart, Percutaneous Approach (ICD-10-PCS; 2018-08-16)
PROC: B2151ZZ Fluoroscopy of Left Heart using Low Osmolar Contrast (ICD-10-PCS; 2018-08-16)
PROC: B2111ZZ Fluoroscopy of Multiple Coronary Arteries using Low Osmolar Contrast (ICD-10-PCS; 2018-08-16)
PROC: 0T9B70Z Drainage of Bladder with Drainage Device, Via Natural or Artificial Opening (ICD-10-PCS; 2018-08-16)
DX: T82.855A Stenosis of coronary artery stent, initial encounter (principal); T83.83XA Hemorrhage due to genitourinary prosthetic devices, implants and grafts, initial encounter; I25.110 Atherosclerotic heart disease of native coronary artery with unstable angina pectoris; N31.9 Neuromuscular dysfunction of bladder, unspecified; N40.1 Benign prostatic hyperplasia with lower urinary tract symptoms; R33.8 Other retention of urine; N32.89 Other specified disorders of bladder; X58.XXXA Exposure to other specified factors, initial encounter; Y93.89 Activity, other specified; Y92.89 Other specified places as the place of occurrence of the external cause; Y99.8 Other external cause status; Z95.5 Presence of coronary angioplasty implant and graft
CPT/HCPCS: 36415; 74176; 80048; 85025; 85027; 85610; 92928; 93458; 99152; 99153; C1725; C1769; C1874; C1887; C1892; J0583; J1644; J2250; J2270; J3010; J3490; Q9967

== ENCOUNTER 2018-10-12 17:03 | Inpatient (IN) | payer MEDICARE ==
[~2018-10-12] VITALS: Ht 170.2 cm; Wt 83.6 kg
[~2018-10-12 17:03] MED LIST changes: +ATEN50TA PO; +CLOP75TA57 PO; +GABA-585 PO; +GABA-689 PO; +LIDO30CR TP; +MELO7.5T29 PO; +OMEG-117 PO; +ROPI1TAB PO
[2018-10-12] MEDS ORDERED: IV NORMAL SALINE 1000ML BAG 1,000 ML IV ONE ×2 (17:45→19:45)
[2018-10-12] MEDS ORDERED: ACETAMINOPHEN 325 MG TABLET. PO ONE (17:45)
--- NOTE | 2018-10-12 17:51 | PHYS DOC ---
Adult General Chief Complaint Chief Complaint: WEAKNESS/GENERALIZED HPI HPI 83-year-old male presents to ER via EMS after a fall which his son Tahir who is at bedside states occurred this morning around 8:00. He reports patient has been on the floor for 5-6 hours as he was unable to walk due to weakness. EMS had been called earlier today however patient did not want transport to hospital. On arrival patient has generalized aches and pain he has temperature of 103.7. Patient is complaining of generalized Patient states he became weak while he was in the shower causing him to fall to the floor. Pt reports he does not believe he lost consciousness and his son reports he has had no confusion or change in mental status since this morning. Pt on arrival has temperature of 103.2- he denies any recent flu or cold-like illness. Patient does straight catheter himself at home. (CHITO DAUGHERTY APRN) Review of Systems Review of Systems Constitutional: Reports fatigue/weakness- pt felt feverish but hadn't had temp. checked at home Eyes: Denies change in visual acuity, redness, or eye pain [] HENT: Denies nasal congestion or sore throat [] Respiratory: Denies cough or shortness of breath [] Cardiovascular: Denies CP GI: Denies abdominal pain, nausea, vomiting, bloody stools or diarrhea [] : Denies dysuria or hematuria- reports self caths at home Musculoskeletal: Reports generalized body aches stiffness Integument: Denies rash or skin lesions [] Neurologic: Denies headache, focal weakness or sensory changes. Denies dizziness Endocrine: Denies polyuria or polydipsia [] All other systems were reviewed and found to be within normal limits, except as documented in this note. (CHITO DAUGHERTY APRN) Current Medications Current Medications Current Medications Medications (Trade) Dose Ordered Sig/Amauri Start Time Stop Time Status Last Admin Dose Admin Acetaminophen (Tylenol) 650 mg 1X ONCE 10/12/18 17:45 10/12/18 17:49 DC 10/12/18 17:51 650 MG Ceftriaxone Sodium (Rocephin) 1 gm 1X ONCE 10/12/18 19:00 10/12/18 19:01 DC 10/12/18 19:52 1 GM Sodium Chloride 1,000 ml @ 1,000 mls/hr 1X ONCE 10/12/18 17:45 10/12/18 18:44 DC 10/12/18 17:52 1,000 MLS/HR (TREVIN WEBER DO) Allergies Allergies Allergies Coded Allergies Type Severity Reaction Last Updated Verified tamsulosin Adverse Reaction Severe syncope 06/03/16 Yes (TREVIN WEBER DO) Physical Exam Physical Exam Constitutional: Well developed, well nourished, no acute distress, non-toxic appearance. Fatigued appearance HENT: Normocephalic, atraumatic, bilateral ears normal, mucous membranes pink/dry, no oral injury, nose normal. Pt has droop to lt eye/lt side mouth- pt's son reports droop is chronic no acute changes Eyes: 3mm PERRLA, no nystagmus, conjunctiva normal, no discharge. [] Neck: Normal range of motion, no tenderness on mid line cspine or palp. deformity, supple, no stridor. Trachea midline Cardiovascular: Heart rate regular rhythm, no murmur [] Lungs & Thorax: Bilateral breath sounds clear to auscultation- diminished in bases. Resp. equal/nonlabored Abdomen: Bowel sounds normal, soft, no tenderness, no masses, no pulsatile masses. [] Skin: Warm, dry, no erythema, no rash. [] Back: Tender on palp. mid to lower spine- no palp. deformity/crepitus, no CVA tenderness. [] Extremities: Pelvis stable/nontender. No tenderness, no cyanosis, no clubbing, ROM intact- slow purposeful movements, 1-2+ nonpitting bilat. pedal edema- 2+ dorsalis pedis Neurologic: Alert and oriented X 3, normal motor function, normal sensory function, no focal deficits noted. [] Psychologic: Affect normal, judgement normal, mood normal. [] (REFFITT,CHITO Eldridge APRN) Current Patient Data Vital Signs Vital Signs Date Time Temp Pulse Resp B/P (MAP) Pulse Ox O2 Delivery O2 Flow Rate FiO2 10/12/18 19:17 86 23 96 10/12/18 17:03 103.2 195/86 (122) Room Air 103.2 (TREVIN WEBER DO) Lab Values Laboratory Tests Test 10/12/18 17:18 10/12/18 18:20 10/12/18 18:59 White Blood Count 19.3 x10^3/uL (4.0-11.0) H Red Blood Count 3.28 x10^6/uL (4.30-5.70) L Hemoglobin 10.4 g/dL (13.0-17.5) L Hematocrit 31.0 % (39.0-53.0) L Mean Corpuscular Volume 95 fL (79-100) Mean Corpuscular Hemoglobin 32 pg (25-35) Mean Corpuscular Hemoglobin Concent 34 g/dL (31-37) Red Cell Distribution Width 16.1 % (11.5-14.5) H Platelet Count 205 x10^3/uL (140-400) Neutrophils (%) (Auto) 92 % (31-73) H Lymphocytes (%) (Auto) 4 % (24-48) L Monocytes (%) (Auto) 4 % (0-9) Eosinophils (%) (Auto) 0 % (0-3) Basophils (%) (Auto) 0 % (0-3) Neutrophils # (Auto) 17.7 x10^3uL (1.8-7.7) H Lymphocytes # (Auto) 0.8 x10^3/uL (1.0-4.8) L Monocytes # (Auto) 0.7 x10^3/uL (0.0-1.1) Eosinophils # (Auto) 0.0 x10^3/uL (0.0-0.7) Basophils # (Auto) 0.0 x10^3/uL (0.0-0.2) Segmented Neutrophils % 92 % (35-66) H Band Neutrophils % 5 % (0-9) Lymphocytes % 2 % (24-48) L Atypical Lymphocytes % (Manual) 1 % (0-0) H Platelet Estimate Adequate (ADEQUATE) Sodium Level 138 mmol/L (136-145) Potassium Level 3.1 mmol/L (3.5-5.1) L Chloride Level 103 mmol/L (98-107) Carbon Dioxide Level 21 mmol/L (21-32) Anion Gap 14 (6-14) Blood Urea Nitrogen 29 mg/dL (8-26) H Creatinine 1.0 mg/dL (0.7-1.3) Estimated GFR (Cockcroft-Gault) 71.5 BUN/Creatinine Ratio 29 (6-20) H Glucose Level 128 mg/dL (70-99) H Lactic Acid Level 2.0 mmol/L (0.4-2.0) Calcium Level 9.3 mg/dL (8.5-10.1) Magnesium Level 1.9 mg/dL (1.8-2.4) Total Bilirubin 0.6 mg/dL (0.2-1.0) Aspartate Amino Transferase (AST) 149 U/L (15-37) H Alanine Aminotransferase (ALT) 44 U/L (16-63) Alkaline Phosphatase 99 U/L (46-116) Creatine Kinase 4701 U/L (39-308) H Creatine Kinase MB (Mass) 23.9 ng/mL (0.0-3.6) H Creatine Kinase MB Relative Index 0.5 % (0-4) Troponin I Quantitative 0.080 ng/mL (0.000-0.055) LM-Qky-G-Type Natriuretic Peptide 1675 pg/mL (0-449) H Total Protein 7.9 g/dL (6.4-8.2) Albumin 3.7 g/dL (3.4-5.0) Albumin/Globulin Ratio 0.9 (1.0-1.7) L Urine Collection Type Unknown Urine Color Yellow Urine Clarity Cloudy Urine pH 6.5 Urine Specific [place] 1.015 Urine Protein >=300 mg/dL (NEG-TRACE) Urine Glucose (UA) Negative mg/dL (NEG) Urine Ketones (Stick) Negative mg/dL (NEG) Urine Blood Large (NEG) Urine Nitrite Negative (NEG) Urine Bilirubin Negative (NEG) Urine Urobilinogen Dipstick 0.2 mg/dL (0.2 mg/dL) Urine Leukocyte Esterase Large (NEG) Urine RBC Occ /HPF (0-2) Urine WBC Tntc /HPF (0-4) Urine Bacteria Many /HPF (0-FEW) Influenza Type A Antigen Negative (NEGATIVE) Influenza Type B Antigen Negative (NEGATIVE) Laboratory Tests 10/12/18 17:18 Laboratory Tests 10/12/18 17:18 Microbiology 10/12/18 Blood Culture - Final, Complete 10/12/18 Blood Culture Result 1 (BISHOP) - Final, Complete 10/12/18 Antimicrobic Susceptibility - Final, Complete 10/12/18 Urine Culture - Final, Complete 10/12/18 Urine Culture Result 1 (BISHOP) - Final, Complete 10/12/18 Antimicrobic Susceptibility - Final, Complete (TREVIN WEBER DO) Lab Values Laboratory Tests Test 10/12/18 17:18 10/12/18 18:20 10/12/18 18:59 White Blood Count 19.3 x10^3/uL (4.0-11.0) H Red Blood Count 3.28 x10^6/uL (4.30-5.70) L Hemoglobin 10.4 g/dL (13.0-17.5) L Hematocrit 31.0 % (39.0-53.0) L Mean Corpuscular Volume 95 fL (79-100) Mean Corpuscular Hemoglobin 32 pg (25-35) Mean Corpuscular Hemoglobin Concent 34 g/dL (31-37) Red Cell Distribution Width 16.1 % (11.5-14.5) H Platelet Count 205 x10^3/uL (140-400) Neutrophils (%) (Auto) 92 % (31-73) H Lymphocytes (%) (Auto) 4 % (24-48) L Monocytes (%) (Auto) 4 % (0-9) Eosinophils (%) (Auto) 0 % (0-3) Basophils (%) (Auto) 0 % (0-3) Neutrophils # (Auto) 17.7 x10^3uL (1.8-7.7) H Lymphocytes # (Auto) 0.8 x10^3/uL (1.0-4.8) L Monocytes # (Auto) 0.7 x10^3/uL (0.0-1.1) Eosinophils # (Auto) 0.0 x10^3/uL (0.0-0.7) Basophils # (Auto) 0.0 x10^3/uL (0.0-0.2) Segmented Neutrophils % 92 % (35-66) H Band Neutrophils % 5 % (0-9) Lymphocytes % 2 % (24-48) L Atypical Lymphocytes % (Manual) 1 % (0-0) H Platelet Estimate Adequate (ADEQUATE) Sodium Level 138 mmol/L (136-145) Potassium Level 3.1 mmol/L (3.5-5.1) L Chloride Level 103 mmol/L (98-107) Carbon Dioxide Level 21 mmol/L (21-32) Anion Gap 14 (6-14) Blood Urea Nitrogen 29 mg/dL (8-26) H Creatinine 1.0 mg/dL (0.7-1.3) Estimated GFR (Cockcroft-Gault) 71.5 BUN/Creatinine Ratio 29 (6-20) H Glucose Level 128 mg/dL (70-99) H Lactic Acid Level 2.0 mmol/L (0.4-2.0) Calcium Level 9.3 mg/dL (8.5-10.1) Magnesium Level 1.9 mg/dL (1.8-2.4) Total Bilirubin 0.6 mg/dL (0.2-1.0) Aspartate Amino Transferase (AST) 149 U/L (15-37) H Alanine Aminotransferase (ALT) 44 U/L (16-63) Alkaline Phosphatase 99 U/L (46-116) Creatine Kinase 4701 U/L (39-308) H Creatine Kinase MB (Mass) 23.9 ng/mL (0.0-3.6) H Creatine Kinase MB Relative Index 0.5 % (0-4) Troponin I Quantitative 0.080 ng/mL (0.000-0.055) BW-Yce-E-Type Natriuretic Peptide 1675 pg/mL (0-449) H Total Protein 7.9 g/dL (6.4-8.2) Albumin 3.7 g/dL (3.4-5.0) Albumin/Globulin Ratio 0.9 (1.0-1.7) L Urine Collection Type Unknown Urine Color Yellow Urine Clarity Cloudy Urine pH 6.5 Urine Specific [place] 1.015 Urine Protein >=300 mg/dL (NEG-TRACE) Urine Glucose (UA) Negative mg/dL (NEG) Urine Ketones (Stick) Negative mg/dL (NEG) Urine Blood Large (NEG) Urine Nitrite Negative (NEG) Urine Bilirubin Negative (NEG) Urine Urobilinogen Dipstick 0.2 mg/dL (0.2 mg/dL) Urine Leukocyte Esterase Large (NEG) Urine RBC Occ /HPF (0-2) Urine WBC Tntc /HPF (0-4) Urine Bacteria Many /HPF (0-FEW) Influenza Type A Antigen Negative (NEGATIVE) Influenza Type B Antigen Negative (NEGATIVE) Laboratory Tests 10/12/18 17:18 Laboratory Tests 10/12/18 17:18 (CHITO DAUGHERTY APRN) EKG EKG EKG obtained 10/12/18 at 1715 Interpreted by ER physician Sinus rhythm Prolonged TN and QT Ltward axis Rate 97 No STEMI (ADRIELTCHITO GISSELLE) Radiology/Procedures Radiology/Procedures PROCEDURE: CT LUMBAR SPINE WO CONTRAST CT lumbar spine without contrast History: Fall, weakness Axial helical images of the lumbar spine were obtained without contrast. Axial, coronal and sagittal reconstruction was performed. Findings: There is beam Fletcher artifact from hardware from prior fusion of L3-L5 with bilateral pedicle screws and posterior fusion rods. There is marked chronic discogenic disease with loss of intervertebral disc height and marginal spurring of the endplates and vacuum changes at all levels. Diffuse circumferential disc bulges and hypertrophy assessment flavum results in moderate central stenosis at L1-L2 and L2-L3. There has been prior multilevel laminectomy. There is mild narrowing of multiple neuroforamen below the level of the exiting nerve roots. There is some loss of fat around the exiting nerve root bilaterally at L2-L3. The vertebral bodies are aligned. There is no loss of vertebral body stature. Evaluation of the central canal is limited without contrast. Impression: 1. Prior fusion laminectomy. 2. 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 3. No acute findings. PQRS Compliance Statement: One or more of the following individualized dose reduction techniques were utilized for this examination: 1. Automated exposure control 2. Adjustment of the mA and/or kV according to patient size 3. Use of iterative reconstruction technique Electronically signed by: Corina Wilder III, MD (10/12/2018 7:17 PM) [facility] DICTATED and SIGNED BY: CORINA WILDER III, MD DATE: 10/12/181916 PROCEDURE: CT HEAD AND CERVICAL SPINE WO CT Head W/O Contrast: History: fall, head and neck pain Comparison: none Axial images were obtained without contrast. There is moderate diffuse atrophy. There is no hydrocephalus. There is an old small right subdural hematoma with mild right to left midline shift.. Moderate, patchy periventricular and subcortical white matter hypoattenuation is seen. There is no focal loss of olguin-white matter distinction to suggest acute ischemia, i.e. stroke. Impression: Old small hematoma on the right. No acute findings. End impression CT C-Spine without contrast: Clinical History: fall, head and neck pain Technique: Axial helical images of the cervical spine were obtained without contrast, axial coronal and sagittal reconstruction was performed. Findings: There is no loss of vertebral body stature. There is no prevertebral soft tissue swelling. The vertebral bodies are well aligned. There is mild reversal of the normal cervical lordosis which can be positional or could be chronic. The C1-C2 relationship is normal. The visualized osseous structures appear normal. Evaluation of the central canal is limited without contrast. There is multiple posterior disc bulges resulting in flattening of the thecal sac. There does not appear to be gross flattening of the cervical cord. There is marked narrowing of multiple neuroforamen. Impression: No acute findings. Clinical correlation suggested. PQRS Compliance Statement: One or more of the following individualized dose reduction techniques were utilized for this examination: 1. Automated exposure control 2. Adjustment of the mA and/or kV according to patient size 3. Use of iterative reconstruction technique Electronically signed by: Corina Wilder III, MD (10/12/2018 8:33 PM) [facility] DICTATED and SIGNED BY: CORINA WILDER III, MD DATE: 10/12/182032 (CHITO DAUGHERTY APRN) Course & Med Decision Making Course & Med Decision Making Pertinent Labs and Imaging studies reviewed. (See chart for details) Pt was evaluated in the ER after a fall this morning around 8 a.m. and he was unable to ambulate and remained on the floor for approximate 5-6 hours per his son. Pt on arrival had temp. 103.2 and was provided dose of Tylenol 650 mg- recheck at time of admit was 99.5. Pt had UTI and was provided with dose of IV Rocephin after blood cxs were obtained. Pt had WBCs of 19.3 with 5 bands. CK to janine at 4701 and pt was given 1L NS and started on NS 150cc/hr. Troponin was 0.080 so will obtain serial enzymes with admit orders. Pt had K+ 3.1 and so 40 meq PO provided for replacement. BNP 1675. Pt has remained A&Ox3 fatigued appearance without any focal weakness. There was a delay in getting imaging due to computer issues. Head, lumbar, and C-spine imaging negative for acute findings. Chest xray with no obvious acute findings viewed by Dr. Weber. Pt will be admitted to his PCP for further care/monitoring. Will order cardiac serial enzymes and repeat CK as both were elevated on initial labs. 2044: Spoke with Dr. Love, quality control industrial engineer doctor for pt's PCP Dr. Lynch. Discussed pt's case and admit plan. Will admit pt to [facility] for further care/monitoring and consult cardiology with admit orders. (CHITO DAUGHERTY APRN) Dragon Disclaimer Dragon Disclaimer This electronic medical record was generated, in whole or in part, using a voice recognition dictation system. (CHITO DAUGHERTY APRN) Departure Departure Impression: Primary Impression: Elevated troponin Additional Impressions: UTI (urinary tract infection) Fall Rhabdomyolysis Disposition: ADMITTED INPATIENT Admitting Physician: Valentin Lynch (CHITO DAUGHERTY APRN) Condition: GUARDED Referrals: Gamaliel LYNCH MD (PCP) Attending Signature Attending Signature I have reviewed the PA/REGIONAL SALES DIRECTOR's note and plan of care. I was available for consultation as needed at all times during the patient's visit in the emergency department. I agree with the clinical impression, plan and disposition. (TREVIN WEBER DO) Problem Qualifiers CHITO DAUGHERTY APRN Oct 12, 2018 17:51 TREVIN WEBER DO Oct 15, 2018 21:37
[2018-10-12 17:55] LABS: BASO % 0 % (0-3); EOS % 0 % (0-3); HEMOGLOBIN 10.4 g/dL (13.0-17.5); LYMPH # 0.8 x10^3/uL (1.0-4.8); LYMPH % 4 % (24-48); MEAN CORPUSCULAR HEMOGLOBIN 32 pg (25-35); MEAN CORPUSCULAR HGB CONC 34 g/dL (31-37); MEAN CORPUSCULAR VOLUME 95 fL (79-100); MONO # 0.7 x10^3/uL (0.0-1.1); MONO % 4 % (0-9); NEUT # 17.7 x10^3uL (1.8-7.7); NEUT % 92 % (31-73); PLATELET COUNT 205 x10^3/uL (140-400); RED BLOOD COUNT 3.28 x10^6/uL (4.30-5.70); RED CELL DISTRIBUTION WIDTH 16.1 % (11.5-14.5); WHITE BLOOD COUNT 19.3 x10^3/uL (4.0-11.0)
[2018-10-12 18:05] LABS: CALCIUM 9.3 mg/dL (8.5-10.1); GFR 71.5; POTASSIUM 3.1 mmol/L (3.5-5.1)
[2018-10-12 18:11] LABS: ALBUMIN 3.7 g/dL (3.4-5.0); ALBUMIN/GLOBULIN RATIO 0.9 (1.0-1.7); MAGNESIUM 1.9 mg/dL (1.8-2.4); TOTAL BILIRUBIN 0.6 mg/dL (0.2-1.0); TOTAL PROTEIN 7.9 g/dL (6.4-8.2)
[2018-10-12 18:30] LABS: BILIRUBIN,URINE NEGATIVE (NEG); CLARITY,URINE CLOUDY; COLOR,URINE YELLOW; NITRITE,URINE NEGATIVE (NEG); PH,URINE 6.5; PROTEIN,URINE >=300 mg/dL (NEG-TRACE); UROBILINOGEN,URINE 0.2 mg/dL (0.2 mg/dL)
[2018-10-12 18:43] LABS: RBC,URINE OCC /HPF (0-2)
[2018-10-12 18:44] LABS: BACTERIA,URINE MANY /HPF (0-FEW); WBC,URINE TNTC /HPF (0-4)
[2018-10-12 18:55] LABS: % ATYL 1 % (0-0); % BANDS 5 % (0-9); % LYMPHS 2 % (24-48); % SEGS 92 % (35-66)
[2018-10-12 18:56] LABS: PLT ESTIMATE ADEQUATE (ADEQUATE)
[2018-10-12] MEDS ORDERED: cefTRIAXone IV Push 1 GM VIAL. IVP ONE (19:00)
--- NOTE | 2018-10-12 19:20 | RAD ---
CT lumbar spine without contrast History: Fall, weakness Axial helical images of the lumbar spine were obtained without contrast. Axial, coronal and sagittal reconstruction was performed. Findings: There is beam Fletcher artifact from hardware from prior fusion of L3-L5 with bilateral pedicle screws and posterior fusion rods. There is marked chronic discogenic disease with loss of intervertebral disc height and marginal spurring of the endplates and vacuum changes at all levels. Diffuse circumferential disc bulges and hypertrophy assessment flavum results in moderate central stenosis at L1-L2 and L2-L3. There has been prior multilevel laminectomy. There is mild narrowing of multiple neuroforamen below the level of the exiting nerve roots. There is some loss of fat around the exiting nerve root bilaterally at L2-L3. The vertebral bodies are aligned. There is no loss of vertebral body stature. Evaluation of the central canal is limited without contrast. Impression: 1. Prior fusion laminectomy. 2. 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 3. No acute findings. PQRS Compliance Statement: One or more of the following individualized dose reduction techniques were utilized for this examination: 1. Automated exposure control 2. Adjustment of the mA and/or kV according to patient size 3. Use of iterative reconstruction technique Electronically signed by: Suhail Reyes III, MD (10/12/2018 7:17 PM) [facility]
[2018-10-12 19:26] LABS: INFLUENZA A PATIENT NEGATIVE (NEGATIVE); INFLUENZA B PATIENT NEGATIVE (NEGATIVE)
[2018-10-12] MEDS ORDERED: POTASSIUM CHLORIDE 20 MEQ TABLET.ER. PO ONE (19:45)
--- NOTE | 2018-10-12 20:37 | RAD ---
CT Head W/O Contrast: History: fall, head and neck pain Comparison: none Axial images were obtained without contrast. There is moderate diffuse atrophy. There is no hydrocephalus. There is an old small right subdural hematoma with mild right to left midline shift.. Moderate, patchy periventricular and subcortical white matter hypoattenuation is seen. There is no focal loss of olguin-white matter distinction to suggest acute ischemia, i.e. stroke. Impression: Old small hematoma on the right. No acute findings. End impression CT C-Spine without contrast: Clinical History: fall, head and neck pain Technique: Axial helical images of the cervical spine were obtained without contrast, axial coronal and sagittal reconstruction was performed. Findings: There is no loss of vertebral body stature. There is no prevertebral soft tissue swelling. The vertebral bodies are well aligned. There is mild reversal of the normal cervical lordosis which can be positional or could be chronic. The C1-C2 relationship is normal. The visualized osseous structures appear normal. Evaluation of the central canal is limited without contrast. There is multiple posterior disc bulges resulting in flattening of the thecal sac. There does not appear to be gross flattening of the cervical cord. There is marked narrowing of multiple neuroforamen. Impression: No acute findings. Clinical correlation suggested. PQRS Compliance Statement: One or more of the following individualized dose reduction techniques were utilized for this examination: 1. Automated exposure control 2. Adjustment of the mA and/or kV according to patient size 3. Use of iterative reconstruction technique Electronically signed by: Suhail Reyes III, MD (10/12/2018 8:33 PM) [facility]
[2018-10-12] MEDS ORDERED: ACETAMINOPHEN 325 MG TABLET. PO PRN (21:00)
[2018-10-12 21:37] VITALS: BP 168/75
--- NOTE | 2018-10-12 21:53 | RAD ---
CT thoracic spine without contrast: See CT lumbar spine without contrast. Electronically signed by: Suhail Reyes III, MD (10/12/2018 9:50 PM) [facility]
--- NOTE | 2018-10-12 22:00 | NUR ---
Pt here from er and assisted to bed. Monitor on. VSS. Pm assessment and hx complete. Bed down. Call light within reach. Will continue to monitor.
[2018-10-12] MEDS ORDERED: ATEN25TA PO (22:50)
[2018-10-12] MEDS ORDERED: NAPR-683 PO (22:53)
[2018-10-12] MEDS ORDERED: OMEG1CAP6 PO (22:53)
[2018-10-12 23:00] VITALS: BP 216/91
[2018-10-12] MEDS ORDERED: COLCHICINE 0.6 MG TABLET PO PRN (23:00)
[2018-10-12] MEDS: ATENOLOL 25 MG TABLET. PO SCH (23:44)
[2018-10-13] MEDS: LABETALOL 20 MG/4 ML DISP.SYRIN. IVP PRN (02:50)
[2018-10-13 03:00] VITALS: BP 179/70
--- NOTE | 2018-10-13 03:10 | NUR ---
2255. Call to Dr. Love. Bladder scanner showing 700 ml. Order received to insert sanchez catheter. 2336. Attempted to insert sanchez catheter one time. Marybel Rn inserted 18 chinese sanchez catheter with no difficulty. Sterile technique used. 100 of cloudy straw urine came out. 2346. Sanchez catheter no draining. Irrigated sanchez catheter. Inserted 5ml into sanchez catheter balloon. A few small clots noted. Urine morel colored, than cloudy with alot of sediment. 1300 ml of urine out. 0317. Sanchze catheter draining morel colored urine. Will continue to monitor for any changes. Pt resting comfortably.
[2018-10-13 04:31] LABS: BASO % 0 % (0-3); EOS % 0 % (0-3); HEMATOCRIT 31.1 % (39.0-53.0); HEMOGLOBIN 10.1 g/dL (13.0-17.5); LYMPH % 6 % (24-48); MEAN CORPUSCULAR HEMOGLOBIN 31 pg (25-35); MEAN CORPUSCULAR HGB CONC 33 g/dL (31-37); MEAN CORPUSCULAR VOLUME 96 fL (79-100); MONO # 0.5 x10^3/uL (0.0-1.1); MONO % 3 % (0-9); NEUT # 14.2 x10^3uL (1.8-7.7); NEUT % 90 % (31-73); PLATELET COUNT 187 x10^3/uL (140-400); RED BLOOD COUNT 3.25 x10^6/uL (4.30-5.70); RED CELL DISTRIBUTION WIDTH 16.3 % (11.5-14.5); WHITE BLOOD COUNT 15.8 x10^3/uL (4.0-11.0)
[2018-10-13 04:50] LABS: ALBUMIN 3.3 g/dL (3.4-5.0); ALBUMIN/GLOBULIN RATIO 0.9 (1.0-1.7); CALCIUM 8.9 mg/dL (8.5-10.1); CREATININE 0.9 mg/dL (0.7-1.3); GFR 80.8; POTASSIUM 3.3 mmol/L (3.5-5.1); TOTAL BILIRUBIN 0.6 mg/dL (0.2-1.0); TOTAL PROTEIN 7.1 g/dL (6.4-8.2)
--- NOTE | 2018-10-13 06:51 | EKG ---
[facility] [address] [place] [address] Test Date: 2018-10-12 Test Time: 17:15:12 Pat Name: RUTH ANN SALVADOR Department: Room: 201 1 Gender: M Consumer Credit Counselor: : 1935 Requested By: CHITO DAUGHERTY Order Number: [id number] Reading MD: Andre Rodriguez Measurements Intervals [place] Rate: 97 P: -21 [place]: 204 QRS: -18 QRSD: 94 T: 36 QT: 406 QTc: 521 Interpretive Statements SINUS RHYTHM PROLONGED OH INTERVAL LEFTWARD AXIS PROLONGED QT ABNORMAL ECG RI6.01 Compared to ECG 04/13/2016 11:51:10 Left-axis deviation now present Prolonged QT interval now present Electronically Signed On 10-19-2018 11:41:35 CDT by Andre Rodriguez
[2018-10-13 07:00] VITALS: BP 159/67
[2018-10-13] MEDS ORDERED: POTASSIUM CHLORIDE 20 MEQ TABLET.ER. PO ONE (07:45)
--- NOTE | 2018-10-13 07:45 | RAD ---
CHEST AP ONLY Clinical Indication: FALL. SOB Comparison: 04/13/2016 Portable Chest X-ray Exam. 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 The cardiomediastinal silhouette is normal. Lungs are clear. There is no pneumothorax. No pleural effusion is appreciated. No acute bone abnormality. IMPRESSION: No acute cardiopulmonary process. Consider further imaging if occult fracture is a concern. Electronically signed by: Geoffrey Peter MD (10/13/2018 7:41 AM) [facility]
--- NOTE | 2018-10-13 08:57 | PDOC2 ---
LESLEE MULLINS [employer] OFFICER 10/13/18 0857: CARDIAC CONSULT DATE OF CONSULT Date of Consult DATE: 10/13/18 TIME: 08:41 REASON FOR CONSULT Reason for Consult: Elevated troponin, stepheno REFERRING PHYSICIAN Referring Physician: Casie SOURCE Source: Chart review, Patient HISTORY OF PRESENT ILLNESS HISTORY OF PRESENT ILLNESS This is a pleasant 83 yo male admitted for complains of fall and chills. This is the first he has fallen in a long time. Reports that in the last 3 days he has been feeling weak and at times waking up wet with sweat and has been having chills. Upon admission he has been noted with fever. He has been having burning sensation when he urinates. Denies any chest pain, SOA, leg swelling. His legs were so weak yesterday that he said he landed on his butt and he could not get up and was calling for his but she is could not get downstairs " my is in worse shape than I am" finally his was able to call for help after he has been on the floor for about 6 hours. Positive for body aches. He verablized that he has been taking his medications regularly and felt that he has been hydrating self. Denies any palpitations with fall but felt slightly dizzy. PAST MEDICAL HISTORY Cardiovascular: CAD, HTN, Hyperlipidemia, Other (PAD; SSS) Musculoskeletal: Osteoarthritis Rheumatologic: Gout Renal/: UTI, Benign prostatic enlarg. Dermatology: Other (actinic keratosis) PAST SURGICAL HISTORY Past Surgical History: Pacemaker, Hernia Repair, Other (LE percutaneous revascularization; PCI/stents; back surgery; right thigh cyst removal; skin CA removal, CTS release; RTSA) FAMILY HISTORY Family History noncontributory to CV SOCIAL HISTORY Smoke: Quit ALCOHOL: none Drugs: None Lives: with Family CURRENT MEDICATIONS CURRENT MEDICATIONS Current Medications Medications (Trade) Dose Ordered Sig/Amauri Route PRN Reason Start Time Stop Time Status Last Admin Dose Admin Acetaminophen (Tylenol) 650 mg 1X ONCE PO 10/12/18 17:45 10/12/18 17:49 DC 10/12/18 17:51 Sodium Chloride 1,000 ml @ 1,000 mls/hr 1X ONCE IV 10/12/18 17:45 10/12/18 18:44 DC 10/12/18 17:52 Ceftriaxone Sodium (Rocephin) 1 gm 1X ONCE IVP 10/12/18 19:00 10/12/18 19:01 DC 10/12/18 19:52 Sodium Chloride 1,000 ml @ 150 mls/hr 1X ONCE IV 10/12/18 19:45 10/13/18 02:24 DC 10/12/18 19:56 Potassium Chloride (Klor-Con) 40 meq 1X ONCE PO 10/12/18 19:45 10/12/18 19:46 DC 10/12/18 19:50 Acetaminophen (Tylenol) 650 mg PRN Q4HRS PRN PO FEVER 10/12/18 21:00 10/13/18 20:59 10/13/18 01:08 Atenolol (Tenormin) 12.5 mg BID PO 10/12/18 23:00 10/12/18 23:44 Nifedipine (Procardia Xl) 60 mg 1X ONCE PO 10/13/18 02:00 10/13/18 02:01 DC 10/13/18 01:46 Labetalol HCl (Normodyne Iv Push) 20 mg PRN Q2HR PRN IVP HYPERTENSION, SEE COMMENTS 10/13/18 01:45 10/13/18 02:50 ALLERGIES ALLERGIES: Coded Allergies: tamsulosin (Verified Adverse Reaction, Severe, syncope, 06/03/16) ROS Review of System 14 point ROS evaluated with pertinent positives noted per HPI PHYSICAL EXAM General: Alert, Oriented X3, Cooperative, No acute distress HEENT: Atraumatic, Mucous membr. moist/pink Lungs: Other (faint basilar crackles) Heart: Regular rate (SR), Normal S1, Normal S2, Other (2/6 systolic murmur to a pex. ) Abdomen: Soft, No tenderness Extremities: No cyanosis, No edema Skin: No breakdown, No significant lesion Neuro: Normal speech, Sensation intact Psych/Mental Status: Mental status NL, Mood NL MUSCULOSKELETAL: Osteoarthritic changes both hands VITALS VITALS Vital Signs Date Time Temp Pulse Resp B/P (MAP) Pulse Ox O2 Delivery O2 Flow Rate FiO2 10/13/18 07:00 99.9 81 18 159/67 (97) 98 Room Air 99.9 LABS Lab: Laboratory Tests Test 10/12/18 17:18 10/12/18 18:20 10/12/18 18:59 10/12/18 23:50 White Blood Count 19.3 x10^3/uL (4.0-11.0) Red Blood Count 3.28 x10^6/uL (4.30-5.70) Hemoglobin 10.4 g/dL (13.0-17.5) Hematocrit 31.0 % (39.0-53.0) Mean Corpuscular Volume 95 fL (79-100) Mean Corpuscular Hemoglobin 32 pg (25-35) Mean Corpuscular Hemoglobin Concent 34 g/dL (31-37) Red Cell Distribution Width 16.1 % (11.5-14.5) Platelet Count 205 x10^3/uL (140-400) Neutrophils (%) (Auto) 92 % (31-73) Lymphocytes (%) (Auto) 4 % (24-48) Monocytes (%) (Auto) 4 % (0-9) Eosinophils (%) (Auto) 0 % (0-3) Basophils (%) (Auto) 0 % (0-3) Neutrophils # (Auto) 17.7 x10^3uL (1.8-7.7) Lymphocytes # (Auto) 0.8 x10^3/uL (1.0-4.8) Monocytes # (Auto) 0.7 x10^3/uL (0.0-1.1) Eosinophils # (Auto) 0.0 x10^3/uL (0.0-0.7) Basophils # (Auto) 0.0 x10^3/uL (0.0-0.2) Segmented Neutrophils % 92 % (35-66) Band Neutrophils % 5 % (0-9) Lymphocytes % 2 % (24-48) Atypical Lymphocytes % (Manual) 1 % (0-0) Platelet Estimate Adequate (ADEQUATE) Sodium Level 138 mmol/L (136-145) Potassium Level 3.1 mmol/L (3.5-5.1) Chloride Level 103 mmol/L (98-107) Carbon Dioxide Level 21 mmol/L (21-32) Anion Gap 14 (6-14) Blood Urea Nitrogen 29 mg/dL (8-26) Creatinine 1.0 mg/dL (0.7-1.3) Estimated GFR (Cockcroft-Gault) 71.5 BUN/Creatinine Ratio 29 (6-20) Glucose Level 128 mg/dL (70-99) Lactic Acid Level 2.0 mmol/L (0.4-2.0) Calcium Level 9.3 mg/dL (8.5-10.1) Magnesium Level 1.9 mg/dL (1.8-2.4) Total Bilirubin 0.6 mg/dL (0.2-1.0) Aspartate Amino Transf (AST/SGOT) 149 U/L (15-37) Alanine Aminotransferase (ALT/SGPT) 44 U/L (16-63) Alkaline Phosphatase 99 U/L (46-116) Creatine Kinase 4701 U/L (39-308) Creatine Kinase MB (Mass) 23.9 ng/mL (0.0-3.6) Creatine Kinase MB Relative Index 0.5 % (0-4) Troponin I Quantitative 0.080 ng/mL (0.000-0.055) 0.093 ng/mL (0.000-0.055) WJ-Zea-P-Type Natriuretic Peptide 1675 pg/mL (0-449) Total Protein 7.9 g/dL (6.4-8.2) Albumin 3.7 g/dL (3.4-5.0) Albumin/Globulin Ratio 0.9 (1.0-1.7) Urine Collection Type Unknown Urine Color Yellow Urine Clarity Cloudy Urine pH 6.5 Urine Specific [place] 1.015 Urine Protein >=300 mg/dL (NEG-TRACE) Urine Glucose (UA) Negative mg/dL (NEG) Urine Ketones (Stick) Negative mg/dL (NEG) Urine Blood Large (NEG) Urine Nitrite Negative (NEG) Urine Bilirubin Negative (NEG) Urine Urobilinogen Dipstick 0.2 mg/dL (0.2 mg/dL) Urine Leukocyte Esterase Large (NEG) Urine RBC Occ /HPF (0-2) Urine WBC Tntc /HPF (0-4) Urine Bacteria Many /HPF (0-FEW) Influenza Type A Antigen Negative (NEGATIVE) Influenza Type B Antigen Negative (NEGATIVE) Test 10/13/18 03:20 White Blood Count 15.8 x10^3/uL (4.0-11.0) Red Blood Count 3.25 x10^6/uL (4.30-5.70) Hemoglobin 10.1 g/dL (13.0-17.5) Hematocrit 31.1 % (39.0-53.0) Mean Corpuscular Volume 96 fL (79-100) Mean Corpuscular Hemoglobin 31 pg (25-35) Mean Corpuscular Hemoglobin Concent 33 g/dL (31-37) Red Cell Distribution Width 16.3 % (11.5-14.5) Platelet Count 187 x10^3/uL (140-400) Neutrophils (%) (Auto) 90 % (31-73) Lymphocytes (%) (Auto) 6 % (24-48) Monocytes (%) (Auto) 3 % (0-9) Eosinophils (%) (Auto) 0 % (0-3) Basophils (%) (Auto) 0 % (0-3) Neutrophils # (Auto) 14.2 x10^3uL (1.8-7.7) Lymphocytes # (Auto) 1.0 x10^3/uL (1.0-4.8) Monocytes # (Auto) 0.5 x10^3/uL (0.0-1.1) Eosinophils # (Auto) 0.0 x10^3/uL (0.0-0.7) Basophils # (Auto) 0.0 x10^3/uL (0.0-0.2) Sodium Level 141 mmol/L (136-145) Potassium Level 3.3 mmol/L (3.5-5.1) Chloride Level 105 mmol/L (98-107) Carbon Dioxide Level 21 mmol/L (21-32) Anion Gap 15 (6-14) Blood Urea Nitrogen 23 mg/dL (8-26) Creatinine 0.9 mg/dL (0.7-1.3) Estimated GFR (Cockcroft-Gault) 80.8 BUN/Creatinine Ratio 26 (6-20) Glucose Level 110 mg/dL (70-99) Calcium Level 8.9 mg/dL (8.5-10.1) Magnesium Level 2.0 mg/dL (1.8-2.4) Total Bilirubin 0.6 mg/dL (0.2-1.0) Aspartate Amino Transf (AST/SGOT) 184 U/L (15-37) Alanine Aminotransferase (ALT/SGPT) 51 U/L (16-63) Alkaline Phosphatase 89 U/L (46-116) Creatine Kinase 4298 U/L (39-308) Troponin I Quantitative 0.105 ng/mL (0.000-0.055) Total Protein 7.1 g/dL (6.4-8.2) Albumin 3.3 g/dL (3.4-5.0) Albumin/Globulin Ratio 0.9 (1.0-1.7) ECHOCARDIOGRAM ECHOCARDIOGRAM <Conclusion> The left ventricular systolic function is normal. The ejection fraction is 55-60%. There is normal LV segmental wall motion. Pacer wire noted in right atrium and right ventricle. Trace mitral regurgitation. Mild tricuspid regurgitation with an estimated PAP of 42 mmHg. There is no evidence of significant pericardial effusion. DATE: 07/28/18 1215 HEART CATH HEART CATH Conclusion 1. 80% heavily calcified stenosis involving the midsegment of the right coronary artery. The previously placed stent in the right coronary artery showed 40% in-stent restenosis and the stent in left anterior descending artery was widely patent. 2. Successful, takes PCI/drug eluting stent placement to the right coronary artery. 3. Normal left ventricle systolic function with ejection fraction estimated at 60%. Recommendations 1. Aspirin 325 mg daily for one month followed by 81 mg daily 2. Plavix 75 mg daily for preferably one year 3. Cardiovascular risk factor modification DATE: 08/16/18 1729 ASSESSMENT/PLAN ASSESSMENT/PLAN 1. UTI/fever/weakness; defer to PCP 2. Mechanical fall: no traumatic injuries. on floor estimated 5-6 hours. 3. Rhabdomyolysis 4. Accelerated HTN 5. Elevated troponin: peaked at 0.1, EKG SR without acute changes by comparison. Demand mediated type 2 multiple factors as above 6. Prolonged QTc: 521 7. Hypokalemia 8. CAD: 08/16/18 s/p PCI/JOI to RCA. Recent EF 60%, clinically stable. 9. Cervical and lumbar stenosis with hx of lumbar surgery 10. PPM in situ: [place], hx of SSS.. SR with occasional V pacing. 11. HLP 12. Hx of BPH: will need to note residual once sanchez is DCd, no home meds for this, defer to PCP Recommendations 1. Continue DAPT. hold statin for now. DC NSAIDs for now 2. Replace K 3. Will interrogate device to note any associated arrhythmias and note function in relation to fall. 4. IVF. 5. Avoid QT prolonging agents. 6. Resume home BP meds. Note trend. Hydralazine IV PRN. ANGELA OSBORN MD 10/13/182100: CARDIAC CONSULT ASSESSMENT/PLAN ASSESSMENT/PLAN Patient seen and examined. Agree with SUBWAY GUARD's assessment and plan. Fall mechanical, no syncope Slight trop elevation probably demand ischemia Recent 2D echo showed normal LV function CAD status clinically stable Agree with pacer interrogation Resume home antihypertensives and titrate for better control Continue current management of rhabdo Thank you for your consultation LESLEE MULLINS APRN Oct 13, 2018 08:57 ANGELA OSBORN MD Oct 13, 2018 21:01
[2018-10-13] MEDS ORDERED: hydrALAZINE 20 MG/ML VIAL. IVP PRN (09:00)
[2018-10-13] MEDS ORDERED: ATENOLOL 25 MG TABLET. PO SCH ×2 (09:00)
[2018-10-13] MEDS ORDERED: NAPROXEN 500 MG TABLET PO SCH (09:00)
[2018-10-13] MEDS ORDERED: COLCHICINE 0.6 MG TABLET PO SCH (09:00)
[2018-10-13] MEDS: IV NORMAL SALINE 1000ML BAG 1,000 ML IV SCH ×2 (09:06→20:10)
[2018-10-13] MEDS: CLOPIDOGREL BISULFATE 75 MG TABLET PO SCH (09:08)
[2018-10-13] MEDS: OMEGA-3 FATTY ACIDS/FISH OIL 1,000 MG CAPSULE. PO SCH (09:08)
[2018-10-13] MEDS: ASPIRIN CHEWABLE 81 MG TABLET. PO SCH (09:08)
[2018-10-13] MEDS: GABAPENTIN 100 MG CAPSULE. PO SCH ×2 (09:08→16:27)
[2018-10-13] MEDS: MULTIVITAMIN with MINERAL TABLET. PO SCH (09:08)
[2018-10-13] MEDS: LISINOPRIL 20 MG TABLET PO SCH (09:08)
[2018-10-13] MEDS: ATENOLOL 25 MG TABLET. PO SCH ×2 (09:09→20:01)
[2018-10-13 11:00] VITALS: BP_SYST 140; BP_SYST 142; BP_SYST 150; BP_DIAS 59; BP_DIAS 62
--- NOTE | 2018-10-13 13:09 | HP ---
ADMIT DATE: 10/12/2018 CHIEF COMPLAINT: Weakness. HISTORY OF PRESENT ILLNESS AND HOSPITAL COURSE: This is an 83-year-old male who was found down at home by EMS. He apparently had been down 4-5 hours. He was home with his , but refused to let his call EMS. After failed attempts to mobilize the patient, the patient was brought to the ER by EMS. He was found to have a temperature of 103.7 and evidence of rhabdomyolysis. The patient was found to have UTI on UA and has known urinary retention and self caths twice per day. The patient had elevated white count, but normal BUN and creatinine, but high creatine kinase of nearly 5000. Troponin was also elevated at 0.093. PAST MEDICAL HISTORY: Significant for, 1. Coronary artery disease, status post stent placement to LAD and RCA. 2. Permanent pacemaker due to sick sinus syndrome. 3. Urinary retention with self-catheterization. 4. Hypertension. 5. Gout. 6. BPH. 7. Osteoarthritis. 8. Hyperlipidemia. 9. Peripheral artery disease, status post PTCA of the left superior femoral artery. PAST SURGICAL HISTORY: Significant for lumbar diskectomy in 2005 and 1993, right shoulder replacement, hernia repair, carpal tunnel release, skin cancer removal, cyst removal of right thigh, permanent pacemaker implantation in 2016. FAMILY HISTORY: Consistent with a brother with lung cancer, otherwise noncontributory. SOCIAL HISTORY: The patient is a former smoker, quit about 10 years ago. The patient has not had a drink in several years. In the past, he was a social and light drinker. The patient is and lives with spouse. ALLERGIES: THE PATIENT EXHIBITS ALLERGIES TO FLOMAX. REVIEW OF SYSTEMS: The patient's recent medical history is significant for increasing weakness and requiring self catheterization. The patient denies cough, congestion, nausea, vomiting or fever. The patient already asking to go home and was reluctant to come to the hospital despite inability to get out of chair or off the floor. Physical exam: Patient is a well-nourished well-developed male. He is alert and oriented and agitated that he is in the hospital asking to go home. Patient's HEENT reveals dry mucous membranes. Patient cardiac exam is regular rhythm Patient's lungs were clear abdomen Patient's extremities revealed 1+ pulses without significant edema Neuro exam revealed no unilateral findings ASSESSMENT: 1. Suspected sepsis. 2. Urinary tract infection. 3. Rhabdomyolysis. 4. Coronary artery disease. 5. Hypertension. 6. Non-ST elevated myocardial infarction. 7. Mild protein malnutrition. 8. Chronic urinary retention. 9. Hematuria. PLAN: To proceed with IV antibiotics, IV fluids, monitor for rhabdomyolysis, proceed with PT and OT modalities and monitor the patient's symptoms. TREVIN JULES MD DR: JOAN/jo-ann JOB#: [id number] / [id number] MARIANO
--- NOTE | 2018-10-13 14:00 | NUR ---
When patient got up to bedside commode, nursing assoc reported sanchez catheter was leaking around insertion area. Checked patients sanchez and there was no further leaking. Sanchez catheter is draining properly. Will continue to monitor.
[2018-10-13 15:00] VITALS: BP 143/63
--- NOTE | 2018-10-13 15:37 | NUR ---
SS following for discharge planning. SS reviewed pt chart. Pt is from home with spouse and is currently on room air. PT/OT ordered. SS will await PT/OT evaluations and recommendations and will proceed accordingly with discharge planning.
[2018-10-13] MEDS: CEFEPIME HCL IV Push 1 GM VIAL. IVP SCH (16:27)
--- NOTE | 2018-10-13 18:25 | NUR ---
Emar documentation: Non-administered 0900 dose of procardia per Phil Veras since patient had taken it at 0200.
[2018-10-13 19:26] VITALS: BP 160/66
[2018-10-13] MEDS: GABAPENTIN 400 MG CAPSULE. PO SCH (20:00)
[2018-10-13] MEDS: ALLOPURINOL 300 MG TABLET. PO SCH (20:00)
[2018-10-13] MEDS ORDERED: ATORVASTATIN CALCIUM 40 MG TABLET. PO SCH ×2 (21:00)
[2018-10-13 23:19] VITALS: BP 163/86
[2018-10-14] VITALS (7 sets, daily range): BP systolic 147–189; BP diastolic 65–83
[2018-10-14] MEDS: LABETALOL 20 MG/4 ML DISP.SYRIN. IVP PRN (03:02)
[2018-10-14] MEDS: IV NORMAL SALINE 1000ML BAG 1,000 ML IV SCH ×2 (05:00→20:13)
[2018-10-14 05:54] LABS: HEMATOCRIT 26.8 % (39.0-53.0); HEMOGLOBIN 9.1 g/dL (13.0-17.5); RED BLOOD COUNT 2.85 x10^6/uL (4.30-5.70); RED CELL DISTRIBUTION WIDTH 15.8 % (11.5-14.5); WHITE BLOOD COUNT 9.7 x10^3/uL (4.0-11.0)
[2018-10-14 06:07] LABS: CALCIUM 8.4 mg/dL (8.5-10.1); CREATININE 0.8 mg/dL (0.7-1.3); GFR 92.5
--- NOTE | 2018-10-14 07:25 | PDOC ---
Infectious Disease Note Vital Sign Vital Signs Vital Signs Date Time Temp Pulse Resp B/P (MAP) Pulse Ox O2 Delivery O2 Flow Rate FiO2 10/14/18 03:27 99.2 87 157/66 (96) 99.2 10/14/18 02:40 16 95 Room Air Labs Lab Laboratory Tests Test 10/14/18 05:15 White Blood Count 9.7 x10^3/uL (4.0-11.0) Red Blood Count 2.85 x10^6/uL (4.30-5.70) Hemoglobin 9.1 g/dL (13.0-17.5) Hematocrit 26.8 % (39.0-53.0) Mean Corpuscular Volume 94 fL (79-100) Mean Corpuscular Hemoglobin 32 pg (25-35) Mean Corpuscular Hemoglobin Concent 34 g/dL (31-37) Red Cell Distribution Width 15.8 % (11.5-14.5) Platelet Count 171 x10^3/uL (140-400) Sodium Level 137 mmol/L (136-145) Potassium Level 3.0 mmol/L (3.5-5.1) Chloride Level 105 mmol/L (98-107) Carbon Dioxide Level 19 mmol/L (21-32) Anion Gap 13 (6-14) Blood Urea Nitrogen 21 mg/dL (8-26) Creatinine 0.8 mg/dL (0.7-1.3) Estimated GFR (Cockcroft-Gault) 92.5 Glucose Level 108 mg/dL (70-99) Calcium Level 8.4 mg/dL (8.5-10.1) Micro Microbiology 10/12/18 Blood Culture - Preliminary, Resulted NO GROWTH AFTER 1 DAY Objective Assessment GNR sepsis - POA 10/12 dosed Rocephin/Levoflox. Changed to Cefepime 10/13 UTI- POA 10/12 - h/o retention s/p coude placement 08/16 and previous infections states last had abx 2 mos ago Leukocytosis - better Fever Rhabdo - s/p fall H/o Sick sinus syndrome s/p Pacemaker Plan Plan of Care no prior cult results but cont Cefepime for now with concern for potential resistance and/or Pseudomonas given abx exposure F/u labs and cults Retroperitoneal U/S and may need Urology eval to be sure no prostatitis States he needs to get home to care for his but I advised to please to allow appropriate work as infection could worsen if not properly evaluated Thank you D/w nursing # [id number] ANIBAL MCNULTY MD Oct 14, 2018 07:25
[2018-10-14] MEDS: ATENOLOL 25 MG TABLET. PO SCH ×2 (08:37→20:14)
[2018-10-14] MEDS: LACTOBACILLUS RHAMNOSUS GG 1 CAPSULE. PO SCH ×2 (08:37→20:15)
[2018-10-14] MEDS: MULTIVITAMIN with MINERAL TABLET. PO SCH (08:38)
[2018-10-14] MEDS: OMEGA-3 FATTY ACIDS/FISH OIL 1,000 MG CAPSULE. PO SCH (08:38)
[2018-10-14] MEDS: LISINOPRIL 20 MG TABLET PO SCH (08:38)
[2018-10-14] MEDS: ASPIRIN CHEWABLE 81 MG TABLET. PO SCH (08:38)
[2018-10-14] MEDS: GABAPENTIN 100 MG CAPSULE. PO SCH ×2 (08:38→15:57)
[2018-10-14] MEDS: CLOPIDOGREL BISULFATE 75 MG TABLET PO SCH (08:38)
[2018-10-14] MEDS: CEFEPIME HCL IV Push 1 GM VIAL. IVP SCH ×2 (08:45→20:14)
[2018-10-14] MEDS ORDERED: POTASSIUM CHLORIDE 20 MEQ TABLET.ER. PO ONE (09:00)
--- NOTE | 2018-10-14 09:24 | PDOC ---
PROGRESS NOTES Subjective Subjective Patient feeling better Urine less bloody today ID on case for + blood clx. Patient still awaiting increased PT/OT effort. renal function stable so far Objective Objective Vital Signs Date Time Temp Pulse Resp B/P (MAP) Pulse Ox O2 Delivery O2 Flow Rate FiO2 10/14/18 08:38 79 156/67 10/14/18 08:00 Room Air 10/14/18 07:00 98.9 18 98 98.9 Intake and Output 10/14/18 07:00 Intake Total 2700 ml Output Total 1175 ml Balance 1525 ml Intake Oral 700 ml IV Total 800 ml Other 1200 ml Output Urine Total 1175 ml Physical Exam Abdomen: Normal bowel sounds Heart: Regular rate Extremities: No edema General: Alert Lungs: Clear to auscultation Assessment Assessment Problems Medical Problems: (1) Rhabdomyolysis Status: Acute 1. Suspected sepsis. 2. Urinary tract infection. 3. Rhabdomyolysis. 4. Coronary artery disease. 5. Hypertension. 6. Non-ST elevated myocardial infarction. 7. Mild protein malnutrition. 8. Chronic urinary retention. 9. Hematuria. Plan Plan of Care Proceed with PT/OT efforts continue IV antibx per ID follow BUN and Cr Comment Review of Relevant I have reviewed the following items bernice (where applicable) has been applied. Labs Laboratory Tests Test 10/12/18 17:18 10/12/18 18:20 10/12/18 18:59 10/12/18 23:50 White Blood Count 19.3 x10^3/uL (4.0-11.0) Red Blood Count 3.28 x10^6/uL (4.30-5.70) Hemoglobin 10.4 g/dL (13.0-17.5) Hematocrit 31.0 % (39.0-53.0) Mean Corpuscular Volume 95 fL (79-100) Mean Corpuscular Hemoglobin 32 pg (25-35) Mean Corpuscular Hemoglobin Concent 34 g/dL (31-37) Red Cell Distribution Width 16.1 % (11.5-14.5) Platelet Count 205 x10^3/uL (140-400) Neutrophils (%) (Auto) 92 % (31-73) Lymphocytes (%) (Auto) 4 % (24-48) Monocytes (%) (Auto) 4 % (0-9) Eosinophils (%) (Auto) 0 % (0-3) Basophils (%) (Auto) 0 % (0-3) Neutrophils # (Auto) 17.7 x10^3uL (1.8-7.7) Lymphocytes # (Auto) 0.8 x10^3/uL (1.0-4.8) Monocytes # (Auto) 0.7 x10^3/uL (0.0-1.1) Eosinophils # (Auto) 0.0 x10^3/uL (0.0-0.7) Basophils # (Auto) 0.0 x10^3/uL (0.0-0.2) Segmented Neutrophils % 92 % (35-66) Band Neutrophils % 5 % (0-9) Lymphocytes % 2 % (24-48) Atypical Lymphocytes % (Manual) 1 % (0-0) Platelet Estimate Adequate (ADEQUATE) Sodium Level 138 mmol/L (136-145) Potassium Level 3.1 mmol/L (3.5-5.1) Chloride Level 103 mmol/L (98-107) Carbon Dioxide Level 21 mmol/L (21-32) Anion Gap 14 (6-14) Blood Urea Nitrogen 29 mg/dL (8-26) Creatinine 1.0 mg/dL (0.7-1.3) Estimated GFR (Cockcroft-Gault) 71.5 BUN/Creatinine Ratio 29 (6-20) Glucose Level 128 mg/dL (70-99) Lactic Acid Level 2.0 mmol/L (0.4-2.0) Calcium Level 9.3 mg/dL (8.5-10.1) Magnesium Level 1.9 mg/dL (1.8-2.4) Total Bilirubin 0.6 mg/dL (0.2-1.0) Aspartate Amino Transf (AST/SGOT) 149 U/L (15-37) Alanine Aminotransferase (ALT/SGPT) 44 U/L (16-63) Alkaline Phosphatase 99 U/L (46-116) Creatine Kinase 4701 U/L (39-308) Creatine Kinase MB (Mass) 23.9 ng/mL (0.0-3.6) Creatine Kinase MB Relative Index 0.5 % (0-4) Troponin I Quantitative 0.080 ng/mL (0.000-0.055) 0.093 ng/mL (0.000-0.055) MP-Tdc-U-Type Natriuretic Peptide 1675 pg/mL (0-449) Total Protein 7.9 g/dL (6.4-8.2) Albumin 3.7 g/dL (3.4-5.0) Albumin/Globulin Ratio 0.9 (1.0-1.7) Urine Collection Type Unknown Urine Color Yellow Urine Clarity Cloudy Urine pH 6.5 Urine Specific [place] 1.015 Urine Protein >=300 mg/dL (NEG-TRACE) Urine Glucose (UA) Negative mg/dL (NEG) Urine Ketones (Stick) Negative mg/dL (NEG) Urine Blood Large (NEG) Urine Nitrite Negative (NEG) Urine Bilirubin Negative (NEG) Urine Urobilinogen Dipstick 0.2 mg/dL (0.2 mg/dL) Urine Leukocyte Esterase Large (NEG) Urine RBC Occ /HPF (0-2) Urine WBC Tntc /HPF (0-4) Urine Bacteria Many /HPF (0-FEW) Influenza Type A Antigen Negative (NEGATIVE) Influenza Type B Antigen Negative (NEGATIVE) Test 10/13/18 03:20 10/14/18 05:15 White Blood Count 15.8 x10^3/uL (4.0-11.0) 9.7 x10^3/uL (4.0-11.0) Red Blood Count 3.25 x10^6/uL (4.30-5.70) 2.85 x10^6/uL (4.30-5.70) Hemoglobin 10.1 g/dL (13.0-17.5) 9.1 g/dL (13.0-17.5) Hematocrit 31.1 % (39.0-53.0) 26.8 % (39.0-53.0) Mean Corpuscular Volume 96 fL (79-100) 94 fL (79-100) Mean Corpuscular Hemoglobin 31 pg (25-35) 32 pg (25-35) Mean Corpuscular Hemoglobin Concent 33 g/dL (31-37) 34 g/dL (31-37) Red Cell Distribution Width 16.3 % (11.5-14.5) 15.8 % (11.5-14.5) Platelet Count 187 x10^3/uL (140-400) 171 x10^3/uL (140-400) Neutrophils (%) (Auto) 90 % (31-73) Lymphocytes (%) (Auto) 6 % (24-48) Monocytes (%) (Auto) 3 % (0-9) Eosinophils (%) (Auto) 0 % (0-3) Basophils (%) (Auto) 0 % (0-3) Neutrophils # (Auto) 14.2 x10^3uL (1.8-7.7) Lymphocytes # (Auto) 1.0 x10^3/uL (1.0-4.8) Monocytes # (Auto) 0.5 x10^3/uL (0.0-1.1) Eosinophils # (Auto) 0.0 x10^3/uL (0.0-0.7) Basophils # (Auto) 0.0 x10^3/uL (0.0-0.2) Sodium Level 141 mmol/L (136-145) 137 mmol/L (136-145) Potassium Level 3.3 mmol/L (3.5-5.1) 3.0 mmol/L (3.5-5.1) Chloride Level 105 mmol/L (98-107) 105 mmol/L (98-107) Carbon Dioxide Level 21 mmol/L (21-32) 19 mmol/L (21-32) Anion Gap 15 (6-14) 13 (6-14) Blood Urea Nitrogen 23 mg/dL (8-26) 21 mg/dL (8-26) Creatinine 0.9 mg/dL (0.7-1.3) 0.8 mg/dL (0.7-1.3) Estimated GFR (Cockcroft-Gault) 80.8 92.5 BUN/Creatinine Ratio 26 (6-20) Glucose Level 110 mg/dL (70-99) 108 mg/dL (70-99) Calcium Level 8.9 mg/dL (8.5-10.1) 8.4 mg/dL (8.5-10.1) Magnesium Level 2.0 mg/dL (1.8-2.4) Total Bilirubin 0.6 mg/dL (0.2-1.0) Aspartate Amino Transf (AST/SGOT) 184 U/L (15-37) Alanine Aminotransferase (ALT/SGPT) 51 U/L (16-63) Alkaline Phosphatase 89 U/L (46-116) Creatine Kinase 4298 U/L (39-308) Troponin I Quantitative 0.105 ng/mL (0.000-0.055) Total Protein 7.1 g/dL (6.4-8.2) Albumin 3.3 g/dL (3.4-5.0) Albumin/Globulin Ratio 0.9 (1.0-1.7) Laboratory Tests Test 10/14/18 05:15 White Blood Count 9.7 x10^3/uL (4.0-11.0) Red Blood Count 2.85 x10^6/uL (4.30-5.70) Hemoglobin 9.1 g/dL (13.0-17.5) Hematocrit 26.8 % (39.0-53.0) Mean Corpuscular Volume 94 fL (79-100) Mean Corpuscular Hemoglobin 32 pg (25-35) Mean Corpuscular Hemoglobin Concent 34 g/dL (31-37) Red Cell Distribution Width 15.8 % (11.5-14.5) Platelet Count 171 x10^3/uL (140-400) Sodium Level 137 mmol/L (136-145) Potassium Level 3.0 mmol/L (3.5-5.1) Chloride Level 105 mmol/L (98-107) Carbon Dioxide Level 19 mmol/L (21-32) Anion Gap 13 (6-14) Blood Urea Nitrogen 21 mg/dL (8-26) Creatinine 0.8 mg/dL (0.7-1.3) Estimated GFR (Cockcroft-Gault) 92.5 Glucose Level 108 mg/dL (70-99) Calcium Level 8.4 mg/dL (8.5-10.1) Microbiology 10/12/18 Blood Culture - Preliminary, Resulted NO GROWTH AFTER 1 DAY Medications Current Medications Acetaminophen (Tylenol) 650 mg 1X ONCE PO Last administered on 10/12/18at 17:51; Start 10/12/18 at 17:45; Stop 10/12/18 at 17:49; Status DC Sodium Chloride 1,000 ml @ 1,000 mls/hr 1X ONCE IV Last administered on 10/12/18at 17:52; Start 10/12/18 at 17:45; Stop 10/12/18 at 18:44; Status DC Ceftriaxone Sodium (Rocephin) 1 gm 1X ONCE IVP Last administered on 10/12/18 19:52; Start 10/12/18 at 19:00; Stop 10/12/18 at 19:01; Status DC Sodium Chloride 1,000 ml @ 150 mls/hr 1X ONCE IV Last administered on 10/12 19:56; Start 10/12/18 at 19:45; Stop 10/13/18 at 02:24; Status DC Potassium Chloride (Klor-Con) 40 meq 1X ONCE PO Last administered on 10/12/18 19:50; Start 10/12/18 at 19:45; Stop 10/12/18 at 19:46; Status DC Acetaminophen (Tylenol) 650 mg PRN Q4HRS PRN PO FEVER Last administered on 10/13/18 01:08; Start 10/12/18 at 21:00; Stop 10/13/18 at 20:59; Status DC Allopurinol (Zyloprim) 300 mg HS PO Last administered on 10/13/18 20:00; Start 10/13/18 at 21:00 Aspirin (Children'S Aspirin) 81 mg DAILY PO Last administered on 10/14/18 08:38; Start 10/13/18 at 09:00 Atenolol (Tenormin) 25 mg BID PO ; Start 10/13/18 at 09:00; Stop 10/13/18 at 09:00; Status DC Atorvastatin Calcium (Lipitor) 20 mg HS PO ; Start 10/13/18 at 21:00; Stop 10/13/18 at 21:00; Status DC Clopidogrel Bisulfate (Plavix) 75 mg DAILY PO Last administered on 10/14/18 08:38; Start 10/13/18 at 09:00 Colchicine (Colcrys) 0.6 mg BID PO ; Start 10/13/18 at 09:00; Stop 10/13/18 at 09:00; Status DC Gabapentin (Neurontin) 100 mg BID94 PO Last administered on 10/14/18 08:38; Start 10/13/18 at 09:00 Gabapentin (Neurontin) 1,200 mg HS PO Last administered on 10/13/18 20:00; Start 10/13/18 at 21:00 Lisinopril (Prinivil) 20 mg DAILY PO Last administered on 10/14/18 08:38; Start 10/13/18 at 09:00 Multivitamins (Thera M Plus) 1 tab DAILY PO Last administered on 10/14/18at 08:38; Start 10/13/18 at 09:00 Nifedipine (Procardia Xl) 60 mg DAILY PO Last administered on 10/14/18at 08:38; Start 10/13/18 at 09:00 Fish Oil (Fish Oil) 1,000 mg DAILY PO Last administered on 10/14/18at 08:38; Start 10/13/18 at 09:00 Atenolol (Tenormin) 12.5 mg BID PO ; Start 10/13/18 at 09:00; Stop 10/13/18 at 09:00; Status DC Naproxen (Naprosyn) 500 mg BID PO ; Start 10/13/18 at 09:00; Stop 10/13/18 at 09:00; Status DC Atenolol (Tenormin) 12.5 mg BID PO Last administered on 10/14/18at 08:37; Start 10/12/18 at 23:00 Atorvastatin Calcium (Lipitor) 40 mg HS PO ; Start 10/13/18 at 21:00; Stop 10/13/18 at 21:00; Status DC Colchicine (Colcrys) 0.6 mg PRN BID PRN PO GOUT; Start 10/12/18 at 23:00 Nifedipine (Procardia Xl) 60 mg 1X ONCE PO Last administered on 10/13/18at 01:46; Start 10/13/18 at 02:00; Stop 10/13/18 at 02:01; Status DC Labetalol HCl (Normodyne Iv Push) 20 mg PRN Q2HR PRN IVP HYPERTENSION, 2ND CHOICE Last administered on 10/14/18at 03:02; Start 10/13/18 at 01:45 Potassium Chloride (Klor-Con) 20 meq 1X ONCE PO Last administered on 10/13/18at 09:08; Start 10/13/18 at 07:45; Stop 10/13/18 at 07:46; Status DC Hydralazine HCl (Apresoline Inj) 10 mg PRN Q4HRS PRN IVP ELEVATED BP, 1ST CHOICE; Start 10/13/18 at 09:00 Sodium Chloride 1,000 ml @ 100 mls/hr Q10H IV Last administered on 10/14/18at 05:00; Start 10/13/18 at 09:00 Levofloxacin/ Dextrose 100 ml @ 100 mls/hr Q24H IV Last administered on 10/13/18at 13:57; Start 10/13/18 at 13:00; Stop 10/13/18 at 15:37; Status DC Cefepime HCl (Maxipime) 1 gm Q12HR IVP Last administered on 10/14/18at 08:45; Start 10/13/18 at 16:00 Lactobacillus Rhamnosus (Culturelle) 1 cap BID PO Last administered on 10/14/18at 08:37; Start 10/14/18 at 09:00 Potassium Chloride (Klor-Con) 40 meq 1X ONCE PO ; Start 10/14/18 at 09:00; Stop 10/14/18 at 09:01; Status DC Potassium Chloride (Klor-Con) 10 meq DAILYWBKFT PO ; Start 10/15/18 at 08:00 Active Scripts Active Reported Fish Oil 1,000 Mg Capsule ([place]-3 Fatty Acids/Fish Oil) 1 Each Capsule 1 Each PO DAILY Naprosyn (Naproxen) 500 Mg Tablet 1 Tab PO BID Atenolol 25 Mg Tablet 0.5 Tab PO BID Lisinopril 40 Mg Tablet 0.5 Tab PO DAILY Gabapentin (Gabapentin) 400 Mg Capsule 3 Cap PO HS Gabapentin (Gabapentin) 100 Mg Capsule 100 Mg PO BID Plavix (Clopidogrel Bisulfate) 75 Mg Tablet 1 Tab PO DAILY Atorvastatin Calcium 40 Mg Tablet 1 Tab PO HS Allopurinol 300 Mg Tablet 1 Tab PO HS Aspirin 81 Mg Tab.chew 1 Tab PO DAILY Multivitamins (Multivitamin) 1 Each Tablet 1 Tab PO DAILY Colcrys (Colchicine) 0.6 Mg Tablet 1 Tab PO PRN BID PRN onset of gout symptoms Nifedipine Er (Nifedipine) 60 Mg Tab.er.24 1 Tab PO DAILY Vitals/I & O Vital Sign - Last 24 Hours 10/13/18 10/13/18 10/13/18 10/13/18 11:00 11:00 11:00 15:00 Temp 98.8 98.1 98.8 98.1 Pulse 75 80 73 73 Resp 18 14 B/P (MAP) 142/62 (88) 150/59 (89) 140/62 (88) 143/63 (89) Pulse Ox 99 98 O2 Delivery Room Air Room Air 4/25/19 4/25/19 4/25/19 4/25/19 19:26 20:00 20:01 23:19 Temp 99.7 99.0 99.7 99.0 Pulse 75 75 77 Resp 16 16 B/P (MAP) 160/66 (97) 160/66 163/86 (111) Pulse Ox 98 96 O2 Delivery Room Air Room Air Room Air 10/14/18 10/14/18 10/14/18 10/14/18 02:40 03:02 03:27 07:00 Temp 101.3 99.2 98.9 101.3 99.2 98.9 Pulse 83 82 87 79 Resp 16 18 B/P (MAP) 170/83 (112) 172/85 157/66 (96) 156/67 (96) Pulse Ox 95 98 O2 Delivery Room Air Room Air 10/14/18 10/14/18 10/14/18 10/14/18 08:00 08:37 08:38 08:38 Pulse 79 79 79 B/P (MAP) 156/67 156/67 156/67 O2 Delivery Room Air Intake and Output 10/13/18 10/13/18 10/14/18 15:00 23:00 07:00 Intake Total 220 ml 980 ml 1500 ml Output Total 1175 ml Balance 220 ml -195 ml 1500 ml TREVIN JULES MD Oct 14, 2018 09:24
--- NOTE | 2018-10-14 11:28 | NUR ---
SS following up with discharge planning. SS met with pt's RN and was notified that PT/OT worked with pt and had mentioned [facility]. SS met with pt to discuss discharge planning. Pt reported that he was not going to go to [facility] if recommended. Pt reported that his spouse is at home and has been ill. He reported that his son has been good about helping them while he has been in the hospital but reported that his son works nights and is tired. He reported that he really just wants to go home. Pt reported that he would be agreeable to home healthcare at discharge. Deena from [facility] was notified and will meet with pt today to provide education on home healthcare. Pt's RN notified.
--- NOTE | 2018-10-14 12:39 | PDOC ---
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 10/14/18 1239: CARDIO Progress Notes Date and Time Date of Service 10/14/18 Time of Evaluation 1150 Subjective Subjective: No Chest Pain, No shortness of breath, No Dizziness Vitals Vitals Vital Signs Date Time Temp Pulse Resp B/P (MAP) Pulse Ox O2 Delivery O2 Flow Rate FiO2 10/14/18 11:00 99.1 74 16 157/67 (97) 98 Room Air 99.1 Weight Weight [ ] Input and Output Intake and Output Intake and Output 10/14/18 07:00 Intake Total 2700 ml Output Total 1175 ml Balance 1525 ml Intake Oral 700 ml IV Total 800 ml Other 1200 ml Output Urine Total 1175 ml Laboratory Labs Laboratory Tests Test 10/14/18 05:15 White Blood Count 9.7 x10^3/uL (4.0-11.0) Red Blood Count 2.85 x10^6/uL (4.30-5.70) Hemoglobin 9.1 g/dL (13.0-17.5) Hematocrit 26.8 % (39.0-53.0) Mean Corpuscular Volume 94 fL (79-100) Mean Corpuscular Hemoglobin 32 pg (25-35) Mean Corpuscular Hemoglobin Concent 34 g/dL (31-37) Red Cell Distribution Width 15.8 % (11.5-14.5) Platelet Count 171 x10^3/uL (140-400) Sodium Level 137 mmol/L (136-145) Potassium Level 3.0 mmol/L (3.5-5.1) Chloride Level 105 mmol/L (98-107) Carbon Dioxide Level 19 mmol/L (21-32) Anion Gap 13 (6-14) Blood Urea Nitrogen 21 mg/dL (8-26) Creatinine 0.8 mg/dL (0.7-1.3) Estimated GFR (Cockcroft-Gault) 92.5 Glucose Level 108 mg/dL (70-99) Calcium Level 8.4 mg/dL (8.5-10.1) Microbiology Micro Microbiology 10/12/18 Blood Culture - Final, Complete Physical Exam HEENT: Neck Supple W Full Motion Chest: Symmetric LUNGS: Clear to Auscultation, Other (diminished bases) Heart: S1S2, RRR, no murmurs Abdomen: Soft N/T Extremities: Other (trace bilateral LE edema ) Neurology: alert, oriented, follow commands Assessment Assessment 1. UTI/fevers. Sepsis. BC with GNR. As per ID 2. Mechanical fall: no traumatic injuries. on floor estimated 5-6 hours. 3. Rhabdomyolysis; due to above 4. Accelerated HTN; remains elevated 5. Elevated troponin: peaked at 0.1, EKG SR without acute changes by comparison. Demand mediated type 2 multiple factors as above 6. Prolonged QTc: 521 7. Hypokalemia; replacement ongoing 8. CAD: 08/16/18 s/p PCI/JOI to RCA. Recent EF 60%, clinically stable. 9. PPM in situ: [place], hx of SSS.. SR with occasional V pacing. Interrogation with normal device function. No significant ectopy noted. 10. HLP Recommendations Increase lisinopril Continue ASA, Plavix. Statin on hold for now Monitor lytes, replace as warranted Continue IVFs Supportive care from a CV standpoint. ANGELA OSBORN MD 10/14/18 1652: CARDIO Progress Notes Assessment Assessment Patient seen and examined. 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 Agree with increasing lisinopril dose for better blood pressure control CAD status clinically stable. Slight troponin elevation probably demand ischemia. Continue current treatment for UTI per ID team. JACK TAPIA APRN Oct 14, 2018 12:39 ANGELA OSBORN MD Oct 14, 2018 16:52
--- NOTE | 2018-10-14 13:44 | NUR ---
SS following up with discharge planning. Pt agreeable to home healthcare with [facility], ; fax [phone].
--- NOTE | 2018-10-14 14:46 | RAD ---
Bilateral renal ultrasound without comparison for recurrent urinary tract infection, prostatitis TECHNIQUE: Real-time grayscale and color Doppler evaluation of the kidneys and urinary bladder is performed. FINDINGS: The right kidney measures 10.4 x 5.2 x 5.5 cm in the left measures 13.2 x 4.8 x 5.9 cm. This size discrepancy is not born out by comparison with the patient's most recent CT scan from August 16, 2018, and is likely spurious. There is mild thinning of the cortices bilaterally. No focal parenchymal abnormalities are seen. No hydronephrosis is evident. There is normal color flow bilaterally. The urinary bladder is fluid distended and grossly unremarkable. A Gonzalez catheter is present. Ureteral jets are not assessed. Attempts to evaluate the prostate from an transabdominal approach via the urinary bladder as an acoustic window were unsuccessful. IMPRESSION: 1. Bilateral cortical thinning suggesting chronic medical renal disease. 2. No sonographically discernible acute abnormality of the kidneys. 3. Nonvisualization of the prostate via a transabdominal approach. Electronically signed by: Jimi Wilson MD (10/14/2018 2:44 PM) [id number]
[2018-10-14] MEDS ORDERED: LISINOPRIL 10 MG TABLET PO ONE (16:00)
[2018-10-14] MEDS: GABAPENTIN 400 MG CAPSULE. PO SCH (20:14)
[2018-10-14] MEDS: ACETAMINOPHEN 500 MG TABLET PO PRN (20:15)
[2018-10-14] MEDS: ALLOPURINOL 300 MG TABLET. PO SCH (20:15)
--- NOTE | 2018-10-15 00:11 | CONS ---
DATE OF CONSULTATION: 10/14/2018 INFECTIOUS DISEASE CONSULTATION LOCATION: The patient is in room 201. REQUESTING PHYSICIAN: Dr. Love REASON FOR CONSULTATION: Bacteremia, gram-negative rods. HISTORY OF PRESENT ILLNESS: The patient is an 83-year-old gentleman with a history of urinary retention and is followed by Dr. Dawson at the [facility] in the [place]. On the 16 of August, he was in the hospital, had problems with urinary retention and had had a coude catheter placed. He states he followed up with Dr. Dawson, had been on some antibiotics, but cannot remember what it was that he was taking. He states several days ago, he thinks it was over the weekend, he developed sudden onset of weakness and chills. This progressed over the next several days. Apparently, he became weak and fell down and had been on the floor for 4-6 hours. He refused to let his call EMS. Eventually, he was brought to [facility] on the and had a white blood cell count of 19.3. Urinalysis was concerning for a potential urinary tract infection. He was given a dose of Rocephin and admitted to the hospital. Yesterday, he received a dose of levofloxacin. I was consulted. Given his previous history of urinary tract infections, concern for potential resistance and/or potential Pseudomonas with his recent infections, I discontinued the levofloxacin and instituted cefepime about 1 gram q. 12. Currently, the patient is lying in bed, states he is feeling better, states he needs to get home to care for his and the fever is improved as well as the chills. He does have a Gonzalez in place. He did have some headache and nausea at home. This improved. He denies any cough or shortness of air. He has kind of generalized achiness all over. Denies any rashes or any gross wounds. PAST MEDICAL HISTORY: Positive for coronary artery disease, hypertension, hyperlipidemia, peripheral arterial disease, sick sinus syndrome, osteoarthritis, gout, BPH with urinary retention, history of previous urinary tract infections, actinic keratosis. PAST SURGICAL HISTORY: Positive for pacemaker, hernia repair, lower extremity percutaneous revascularization with stents of back surgery, right thigh cyst removal, skin cancer removal, carpal tunnel release and the RTSA. REVIEW OF SYSTEMS: Otherwise negative. ALLERGIES: LISTED TAMSULOSIN. SOCIAL HISTORY: He is . He quit tobacco about 10 years ago, history of social drinking in the past. FAMILY HISTORY: Brother had lung cancer. CURRENT MEDICATIONS: Include again the Rocephin, levofloxacin x 1, allopurinol, aspirin, Tenormin, cefepime 1 gram q. 12, Plavix, colchicine, Neurontin, hydralazine, labetalol, lactobacillus, Prinivil, multivitamin, nifedipine, omega-3. PHYSICAL EXAMINATION: VITAL SIGNS: Had a temp of 103.2 at presentation, 101.3 overnight, currently 99.2; pulse 87; respirations 16; blood pressure 157/66; satting 95% on room air. CONSTITUTIONAL: He is cooperative. He is in no acute distress. HEENT: He has had some cataract surgery. Oral cavity and pharynx are clear. NECK: Supple. No JVD. LUNGS: Decreased in the bases. HEART: S1, S2. 1-2/6 systolic murmur. ABDOMEN: Soft, nontender. Gonzalez is in place. EXTREMITIES: No clubbing, cyanosis or gross edema. SKIN: Warm to touch without signs of generalized rash. NEUROLOGIC: He is nonfocal, moves all extremities, answers questions. PSYCHIATRIC: Affect is appropriate. LABORATORY VALUES: White count was 19.3 on arrival, today is 9.7; hemoglobin 9.1; platelets of 171; 5% bands on presentation. Creatinine of 0.8, glucose of 108, creatine kinase yesterday was 4298. Does have elevated troponins. Influenza screen was negative. Urine consistent with a urinary tract infection. IMPRESSION: 1. Gram-negative sepsis, present on admission of 10/12. The dose of the Rocephin and levofloxacin changed to cefepime on the . 2. Urinary tract infection present on admission of 10/12. 3. History of retention, status post coude placement on the 16 of August and has had previous infections, states the last time he had antibiotics was about 2 months ago. 4. Leukocytosis, better. 5. Fever. 6. Status post fall with rhabdomyolysis. 7. History of sick sinus syndrome, status post pacemaker. RECOMMENDATIONS: There are no prior culture results, but we will continue cefepime for now, the concern for potential resistance and/or Pseudomonas given his antibiotic exposure. Follow up labs and cultures. Need retroperitoneal ultrasound and may need Urology evaluation. Ensure no prostatitis, although he does deny pain with bowel movements. States he needs to get home to care for his , but advised to please stay to allow appropriate workup as infection could worsen if not properly evaluated. This was discussed with nursing. Thank you for asking me to participate in the patient's care. If you have any questions, please do not hesitate to contact me. ANIBAL MCNULTY MD DR: HINA/nts JOB#: [id number] / [id number]
[2018-10-15] MEDS: IV NORMAL SALINE 1000ML BAG 1,000 ML IV SCH ×2 (01:00→12:15)
[2018-10-15 03:34] LABS: RED BLOOD COUNT 2.86 x10^6/uL (4.30-5.70); RED CELL DISTRIBUTION WIDTH 15.9 % (11.5-14.5); WHITE BLOOD COUNT 7.6 x10^3/uL (4.0-11.0)
[2018-10-15 03:46] LABS: CALCIUM 8.2 mg/dL (8.5-10.1); CREATININE 0.7 mg/dL (0.7-1.3); POTASSIUM 3.1 mmol/L (3.5-5.1)
[2018-10-15 03:50] VITALS: BP 159/74
[2018-10-15 07:00] VITALS: BP 180/67
[2018-10-15] MEDS ORDERED: POTASSIUM CHLORIDE 10 MEQ TABLET.ER. PO SCH ×2 (08:00→17:00)
[2018-10-15] MEDS: GABAPENTIN 100 MG CAPSULE. PO SCH ×2 (08:30→16:41)
[2018-10-15] MEDS: OMEGA-3 FATTY ACIDS/FISH OIL 1,000 MG CAPSULE. PO SCH (08:31)
[2018-10-15] MEDS: ASPIRIN CHEWABLE 81 MG TABLET. PO SCH (08:31)
[2018-10-15] MEDS: LACTOBACILLUS RHAMNOSUS GG 1 CAPSULE. PO SCH ×2 (08:31→20:57)
[2018-10-15] MEDS: CLOPIDOGREL BISULFATE 75 MG TABLET PO SCH (08:31)
[2018-10-15] MEDS: LISINOPRIL 20 MG TABLET PO SCH (08:32)
[2018-10-15] MEDS: MULTIVITAMIN with MINERAL TABLET. PO SCH (08:32)
[2018-10-15] MEDS: ATENOLOL 25 MG TABLET. PO SCH (08:32)
[2018-10-15] MEDS: ACETAMINOPHEN 500 MG TABLET PO PRN ×2 (08:33→16:39)
[2018-10-15] MEDS: CEFEPIME HCL IV Push 1 GM VIAL. IVP SCH ×2 (08:33→20:58)
[2018-10-15 11:00] VITALS: BP 143/64
--- NOTE | 2018-10-15 11:10 | PDOC ---
PROGRESS NOTES Subjective Subjective No new complaints pain and wants to go home. Objective Objective Vital Signs Date Time Temp Pulse Resp B/P (MAP) Pulse Ox O2 Delivery O2 Flow Rate FiO2 10/15/18 08:32 87 180/67 10/15/18 08:00 Room Air 10/15/18 07:00 100.8 20 99 100.8 Intake and Output 10/15/18 06:59 Intake Total 1140 ml Output Total 2350 ml Balance -1210 ml Intake Oral 1140 ml Output Urine Total 2350 ml Physical Exam Abdomen: Normal bowel sounds Heart: Regular rate Extremities: No edema General: Alert HEENT: Atraumatic, Mucous membr. moist/pink Lungs: Clear to auscultation MUSCULOSKELETAL: Osteoarthritic changes both hands Neuro: Normal speech, Sensation intact Psych/Mental Status: Mental status NL, Mood NL Skin: No breakdown, No significant lesion Assessment Assessment 1. UTI/fevers. Sepsis. BC with GNR. As per ID 2. Mechanical fall: no traumatic injuries. on floor estimated 5-6 hours. 3. Rhabdomyolysis; due to above. Continue supportive care 4. Accelerated HTN; blood pressure continues to be labile. Change beta blockers to labetalol. 5. Elevated troponin: peaked at 0.1, EKG SR without acute changes by comparison. Demand mediated type 2 multiple factors as above 6. CAD: 08/16/18 s/p PCI/JOI to RCA. Recent EF 60%, clinically stable. 7. PPM in situ: [place], hx of SSS.. SR with occasional V pacing. Interrogation with normal device function. No significant ectopy noted. Plan Plan of Care Problems Medical Problems: (1) Rhabdomyolysis Status: Acute Comment Review of Relevant I have reviewed the following items bernice (where applicable) has been applied. Labs Laboratory Tests Test 10/15/18 03:15 White Blood Count 7.6 x10^3/uL (4.0-11.0) Red Blood Count 2.86 x10^6/uL (4.30-5.70) Hemoglobin 9.0 g/dL (13.0-17.5) Hematocrit 27.0 % (39.0-53.0) Mean Corpuscular Volume 95 fL (79-100) Mean Corpuscular Hemoglobin 31 pg (25-35) Mean Corpuscular Hemoglobin Concent 33 g/dL (31-37) Red Cell Distribution Width 15.9 % (11.5-14.5) Platelet Count 175 x10^3/uL (140-400) Sodium Level 137 mmol/L (136-145) Potassium Level 3.1 mmol/L (3.5-5.1) Chloride Level 106 mmol/L (98-107) Carbon Dioxide Level 18 mmol/L (21-32) Anion Gap 13 (6-14) Blood Urea Nitrogen 19 mg/dL (8-26) Creatinine 0.7 mg/dL (0.7-1.3) Estimated GFR (Cockcroft-Gault) 108.0 Glucose Level 102 mg/dL (70-99) Calcium Level 8.2 mg/dL (8.5-10.1) Microbiology 10/12/18 Blood Culture - Final, Complete 10/12/18 Urine Culture - Preliminary, Resulted 10/12/18 Urine Culture Result 1 (BISHOP) - Preliminary, Resulted Medications Current Medications Acetaminophen (Tylenol) 1,000 mg PRN Q6HRS PRN PO MILD PAIN Last administered on 10/15/18at 08:33; Start 10/14/18 at 19:30 Lisinopril (Prinivil) 20 mg 1X ONCE PO Last administered on 10/14/18at 15:57; Start 10/14/18 at 16:00; Stop 10/14/18 at 16:01; Status DC Lisinopril (Prinivil) 40 mg DAILY PO Last administered on 10/15/18at 08:32; Start 10/15/18 at 09:00 Potassium Chloride (Klor-Con) 10 meq DAILYWBKFT PO Last administered on 10/15/18at 08:31; Start 10/15/18 at 08:00 Vitals/I & O Vital Sign - Last 24 Hours 10/14/18 10/14/18 10/14/18 10/14/18 15:18 15:57 19:05 20:14 Temp 99.0 101.9 99.0 101.9 Pulse 80 80 86 80 Resp 18 19 B/P (MAP) 154/70 (98) 154/70 189/65 (106) 189/65 Pulse Ox 96 96 O2 Delivery Room Air Room Air 10/14/18 10/14/18 10/15/18 10/15/18 20:20 23:54 03:50 07:00 Temp 100.8 99.2 100.8 100.8 99.2 100.8 Pulse 68 76 87 Resp 17 17 20 B/P (MAP) 147/68 (94) 159/74 (102) 180/67 (104) Pulse Ox 99 99 99 O2 Delivery Room Air Room Air Room Air Room Air 10/15/18 10/15/18 10/15/18 10/15/18 08:00 08:32 08:32 08:32 Pulse 87 87 87 B/P (MAP) 180/67 180/67 180/67 O2 Delivery Room Air Intake and Output 10/14/18 10/14/18 10/15/18 14:59 22:59 06:59 Intake Total 440 ml 500 ml 200 ml Output Total 800 ml 1550 ml Balance 440 ml -300 ml -1350 ml ANGELA OSBORN MD Oct 15, 2018 11:10
--- NOTE | 2018-10-15 11:39 | PDOC ---
Infectious Disease Note Subjective Subjective Wants to go home, worried about his being left alone Says still having fever and body aches Hungry Denies N/V/D/SOA ROS ROS per HPI Vital Sign Vital Signs Vital Signs Date Time Temp Pulse Resp B/P (MAP) Pulse Ox O2 Delivery O2 Flow Rate FiO2 10/15/18 08:32 87 180/67 10/15/18 08:00 Room Air 10/15/18 07:00 100.8 20 99 100.8 Physical Exam PHYSICAL EXAM GENERAL: Propped up in bed, alert, NAD HEENT: Oral cavity and pharynx are clear. NECK: Supple. LUNGS: Decreased in the bases. HEART: S1, S2. 1-2/6 systolic murmur. ABDOMEN: Soft, nontender. : Gonzalez is in place. EXTREMITIES: No clubbing, cyanosis or gross edema. SKIN: Warm to touch without signs of generalized rash. NEUROLOGIC: He is nonfocal, moves all extremities, answers questions. PIV Labs Lab Laboratory Tests Test 10/15/18 03:15 White Blood Count 7.6 x10^3/uL (4.0-11.0) Red Blood Count 2.86 x10^6/uL (4.30-5.70) Hemoglobin 9.0 g/dL (13.0-17.5) Hematocrit 27.0 % (39.0-53.0) Mean Corpuscular Volume 95 fL (79-100) Mean Corpuscular Hemoglobin 31 pg (25-35) Mean Corpuscular Hemoglobin Concent 33 g/dL (31-37) Red Cell Distribution Width 15.9 % (11.5-14.5) Platelet Count 175 x10^3/uL (140-400) Sodium Level 137 mmol/L (136-145) Potassium Level 3.1 mmol/L (3.5-5.1) Chloride Level 106 mmol/L (98-107) Carbon Dioxide Level 18 mmol/L (21-32) Anion Gap 13 (6-14) Blood Urea Nitrogen 19 mg/dL (8-26) Creatinine 0.7 mg/dL (0.7-1.3) Estimated GFR (Cockcroft-Gault) 108.0 Glucose Level 102 mg/dL (70-99) Calcium Level 8.2 mg/dL (8.5-10.1) IMPRESSION: 1. Bilateral cortical thinning suggesting chronic medical renal disease. 2. No sonographically discernible acute abnormality of the kidneys. 3. Nonvisualization of the prostate via a transabdominal approach. Micro URINE CULTURE RES 1 Preliminary Gram negative rods BLOOD CULTURE Final GRAM NEGATIVE RODS, NOW IN ALL 3 BOTTLES OF BOTH SETS DRAWN. Objective Assessment Gram-negative sepsis from 10/12. Urinary tract infection from 10/12. History of retention, status post coude placement on the 16 of August and has had previous infections, states the last time he had antibiotics was about 2 months ago. Leukocytosis, better. Fever. Status post fall with rhabdomyolysis. History of sick sinus syndrome, status post pacemaker. Plan Plan of Care Continue Cefepime Awaiting GNR ID/susceptibilities may need Urology eval to be sure no prostatitis Probiotics Attending Co-Sign The patient was seen and interviewed as well as examined at the bedside. The chart was reviewed. The case was discussed. Agree with the plan of care. NUNU CAMARILLO APRN Oct 15, 2018 11:39 KRYSTYNA LANDON MD Oct 15, 2018 14:01
--- NOTE | 2018-10-15 13:19 | PDOC ---
PROGRESS NOTES Subjective Subjective Patient without complaint, wants to go home. Objective Objective Vital Signs Date Time Temp Pulse Resp B/P (MAP) Pulse Ox O2 Delivery O2 Flow Rate FiO2 10/15/18 11:00 99.3 77 18 143/64 (90) 98 Room Air 99.3 Intake and Output 10/15/18 06:59 Intake Total 1140 ml Output Total 2350 ml Balance -1210 ml Intake Oral 1140 ml Output Urine Total 2350 ml Physical Exam Abdomen: Normal bowel sounds, Soft, No tenderness Heart: Regular rate Extremities: No edema General: Alert, Oriented X3, No acute distress Lungs: Clear to auscultation Assessment Assessment Problems Medical Problems: (1) Rhabdomyolysis Status: Acute Plan Plan of Care 1. Sepsis with UTI - blood and urine positive for GNR, Tm 101.9. Continue Cefepime per ID. 2. rhabdomyolysis - renal function normal. Will d/c IVF this evening and check CK and renal function in AM. 3. hypokalemia - increase po replacement. 4. HTN - controlled, continue home meds. 5. hx urinary retention - patient does self-cath at home. Has Gonzalez presently. 6. CAD - stable, preserved EF on recent echo. Continue ASA and Plavix. 7. debility - continue therapies. Would be appropriate for longterm but patient takes care of his at home and is adamant about going home as soon as possible. Comment Review of Relevant I have reviewed the following items bernice (where applicable) has been applied. Labs Laboratory Tests Test 10/14/18 05:15 10/15/18 03:15 White Blood Count 9.7 x10^3/uL (4.0-11.0) 7.6 x10^3/uL (4.0-11.0) Red Blood Count 2.85 x10^6/uL (4.30-5.70) 2.86 x10^6/uL (4.30-5.70) Hemoglobin 9.1 g/dL (13.0-17.5) 9.0 g/dL (13.0-17.5) Hematocrit 26.8 % (39.0-53.0) 27.0 % (39.0-53.0) Mean Corpuscular Volume 94 fL (79-100) 95 fL (79-100) Mean Corpuscular Hemoglobin 32 pg (25-35) 31 pg (25-35) Mean Corpuscular Hemoglobin Concent 34 g/dL (31-37) 33 g/dL (31-37) Red Cell Distribution Width 15.8 % (11.5-14.5) 15.9 % (11.5-14.5) Platelet Count 171 x10^3/uL (140-400) 175 x10^3/uL (140-400) Sodium Level 137 mmol/L (136-145) 137 mmol/L (136-145) Potassium Level 3.0 mmol/L (3.5-5.1) 3.1 mmol/L (3.5-5.1) Chloride Level 105 mmol/L (98-107) 106 mmol/L (98-107) Carbon Dioxide Level 19 mmol/L (21-32) 18 mmol/L (21-32) Anion Gap 13 (6-14) 13 (6-14) Blood Urea Nitrogen 21 mg/dL (8-26) 19 mg/dL (8-26) Creatinine 0.8 mg/dL (0.7-1.3) 0.7 mg/dL (0.7-1.3) Estimated GFR (Cockcroft-Gault) 92.5 108.0 Glucose Level 108 mg/dL (70-99) 102 mg/dL (70-99) Calcium Level 8.4 mg/dL (8.5-10.1) 8.2 mg/dL (8.5-10.1) Laboratory Tests Test 10/15/18 03:15 White Blood Count 7.6 x10^3/uL (4.0-11.0) Red Blood Count 2.86 x10^6/uL (4.30-5.70) Hemoglobin 9.0 g/dL (13.0-17.5) Hematocrit 27.0 % (39.0-53.0) Mean Corpuscular Volume 95 fL (79-100) Mean Corpuscular Hemoglobin 31 pg (25-35) Mean Corpuscular Hemoglobin Concent 33 g/dL (31-37) Red Cell Distribution Width 15.9 % (11.5-14.5) Platelet Count 175 x10^3/uL (140-400) Sodium Level 137 mmol/L (136-145) Potassium Level 3.1 mmol/L (3.5-5.1) Chloride Level 106 mmol/L (98-107) Carbon Dioxide Level 18 mmol/L (21-32) Anion Gap 13 (6-14) Blood Urea Nitrogen 19 mg/dL (8-26) Creatinine 0.7 mg/dL (0.7-1.3) Estimated GFR (Cockcroft-Gault) 108.0 Glucose Level 102 mg/dL (70-99) Calcium Level 8.2 mg/dL (8.5-10.1) Microbiology 10/12/18 Blood Culture - Final, Complete 10/12/18 Urine Culture - Preliminary, Resulted 10/12/18 Urine Culture Result 1 (BISHOP) - Preliminary, Resulted Medications Current Medications Acetaminophen (Tylenol) 650 mg 1X ONCE PO Last administered on 10/12/18at 17:51; Start 10/12/18 at 17:45; Stop 10/12/18 at 17:49; Status DC Sodium Chloride 1,000 ml @ 1,000 mls/hr 1X ONCE IV Last administered on 10/12/18at 17:52; Start 10/12/18 at 17:45; Stop 10/12/18 at 18:44; Status DC Ceftriaxone Sodium (Rocephin) 1 gm 1X ONCE IVP Last administered on 10/12/18at 19:52; Start 10/12/18 at 19:00; Stop 10/12/18 at 19:01; Status DC Sodium Chloride 1,000 ml @ 150 mls/hr 1X ONCE IV Last administered on 10/12/18at 19:56; Start 10/12/18 at 19:45; Stop 10/13/18 at 02:24; Status DC Potassium Chloride (Klor-Con) 40 meq 1X ONCE PO Last administered on 10/12/18at 19:50; Start 10/12/18 at 19:45; Stop 10/12/18 at 19:46; Status DC Acetaminophen (Tylenol) 650 mg PRN Q4HRS PRN PO FEVER Last administered on 10/13/18at 01:08; Start 10/12/18 at 21:00; Stop 10/13/18 at 20:59; Status DC Allopurinol (Zyloprim) 300 mg HS PO Last administered on 10/14/18at 20:15; Start 10/13/18 at 21:00 Aspirin (Children'S Aspirin) 81 mg DAILY PO Last administered on 10/15/18 08:31; Start 10/13/18 at 09:00 Atenolol (Tenormin) 25 mg BID PO ; Start 10/13/18 at 09:00; Stop 10/13/18 at 09:00; Status DC Atorvastatin Calcium (Lipitor) 20 mg HS PO ; Start 10/13/18 at 21:00; Stop 10/13/18 at 21:00; Status DC Clopidogrel Bisulfate (Plavix) 75 mg DAILY PO Last administered on 10/15/18 08:31; Start 10/13/18 at 09:00 Colchicine (Colcrys) 0.6 mg BID PO ; Start 10/13/18 at 09:00; Stop 10/13/18 at 09:00; Status DC Gabapentin (Neurontin) 100 mg [id number] PO Last administered on 10/15/18 08:30; Start 10/13/18 at 09:00 Gabapentin (Neurontin) 1,200 mg HS PO Last administered on 10/14/18at 20:14; Start 10/13/18 at 21:00 Lisinopril (Prinivil) 20 mg DAILY PO Last administered on 10/14/18 08:38; Start 10/13/18 at 09:00; Stop 10/14/18 at 14:55; Status DC Multivitamins (Thera M Plus) 1 tab DAILY PO Last administered on 10/15/18 08:32; Start 10/13/18 at 09:00 Nifedipine (Procardia Xl) 60 mg DAILY PO Last administered on 10/15/18 08:32; Start 10/13/18 at 09:00 Fish Oil (Fish Oil) 1,000 mg DAILY PO Last administered on 10/15/18 08:31; Start 10/13/18 at 09:00 Atenolol (Tenormin) 12.5 mg BID PO ; Start 10/13/18 at 09:00; Stop 10/13/18 at 09:00; Status DC Naproxen (Naprosyn) 500 mg BID PO ; Start 10/13/18 at 09:00; Stop 10/13/18 at 09:00; Status DC Atenolol (Tenormin) 12.5 mg BID PO Last administered on 10/15/18at 08:32; Start 10/12/18 at 23:00 Atorvastatin Calcium (Lipitor) 40 mg HS PO ; Start 10/13/18 at 21:00; Stop 10/13/18 at 21:00; Status DC Colchicine (Colcrys) 0.6 mg PRN BID PRN PO GOUT; Start 10/12/18 at 23:00 Nifedipine (Procardia Xl) 60 mg 1X ONCE PO Last administered on 10/13/18at 01:46; Start 10/13/18 at 02:00; Stop 10/13/18 at 02:01; Status DC Labetalol HCl (Normodyne Iv Push) 20 mg PRN Q2HR PRN IVP HYPERTENSION, 2ND CHOICE Last administered on 10/14/18at 03:02; Start 10/13/18 at 01:45 Potassium Chloride (Klor-Con) 20 meq 1X ONCE PO Last administered on 10/13/18at 09:08; Start 10/13/18 at 07:45; Stop 10/13/18 at 07:46; Status DC Hydralazine HCl (Apresoline Inj) 10 mg PRN Q4HRS PRN IVP ELEVATED BP, 1ST CHOICE; Start 10/13/18 at 09:00 Sodium Chloride 1,000 ml @ 100 mls/hr Q10H IV Last administered on 10/15/18at 12:15; Start 10/13/18 at 09:00 Levofloxacin/ Dextrose 100 ml @ 100 mls/hr Q24H IV Last administered on 10/13/18at 13:57; Start 10/13/18 at 13:00; Stop 10/13/18 at 15:37; Status DC Cefepime HCl (Maxipime) 1 gm Q12HR IVP Last administered on 10/15/18at 08:33; Start 10/13/18 at 16:00 Lactobacillus Rhamnosus (Culturelle) 1 cap BID PO Last administered on 10/15/18at 08:31; Start 10/14/18 at 09:00 Potassium Chloride (Klor-Con) 40 meq 1X ONCE PO Last administered on 10/14/18at 09:23; Start 10/14/18 at 09:00; Stop 10/14/18 at 09:01; Status DC Potassium Chloride (Klor-Con) 10 meq DAILYWBKFT PO Last administered on 10/15/18at 08:31; Start 10/15/18 at 08:00 Lisinopril (Prinivil) 40 mg DAILY PO Last administered on 10/15/18at 08:32; Start 10/15/18 at 09:00 Lisinopril (Prinivil) 20 mg 1X ONCE PO Last administered on 10/14/18at 15:57; Start 10/14/18 at 16:00; Stop 10/14/18 at 16:01; Status DC Acetaminophen (Tylenol) 1,000 mg PRN Q6HRS PRN PO MILD PAIN Last administered on 10/15/18at 08:33; Start 10/14/18 at 19:30 Active Scripts Active Reported Fish Oil 1,000 Mg Capsule ([place]-3 Fatty Acids/Fish Oil) 1 Each Capsule 1 Each PO DAILY Naprosyn (Naproxen) 500 Mg Tablet 1 Tab PO BID Atenolol 25 Mg Tablet 0.5 Tab PO BID Lisinopril 40 Mg Tablet 0.5 Tab PO DAILY Gabapentin (Gabapentin) 400 Mg Capsule 3 Cap PO HS Gabapentin (Gabapentin) 100 Mg Capsule 100 Mg PO BID Plavix (Clopidogrel Bisulfate) 75 Mg Tablet 1 Tab PO DAILY Atorvastatin Calcium 40 Mg Tablet 1 Tab PO HS Allopurinol 300 Mg Tablet 1 Tab PO HS Aspirin 81 Mg Tab.chew 1 Tab PO DAILY Multivitamins (Multivitamin) 1 Each Tablet 1 Tab PO DAILY Colcrys (Colchicine) 0.6 Mg Tablet 1 Tab PO PRN BID PRN onset of gout symptoms Nifedipine Er (Nifedipine) 60 Mg Tab.er.24 1 Tab PO DAILY Vitals/I & O Vital Sign - Last 24 Hours 10/14/18 10/14/18 10/14/18 10/14/18 15:18 15:57 19:05 20:14 Temp 99.0 101.9 99.0 101.9 Pulse 80 80 86 80 Resp 18 19 B/P (MAP) 154/70 (98) 154/70 189/65 (106) 189/65 Pulse Ox 96 96 O2 Delivery Room Air Room Air 10/14/18 10/14/18 10/15/18 10/15/18 20:20 23:54 03:50 07:00 Temp 100.8 99.2 100.8 100.8 99.2 100.8 Pulse 68 76 87 Resp 17 17 20 B/P (MAP) 147/68 (94) 159/74 (102) 180/67 (104) Pulse Ox 99 99 99 O2 Delivery Room Air Room Air Room Air Room Air 10/15/18 10/15/18 10/15/18 10/15/18 08:00 08:32 08:32 08:32 Pulse 87 87 87 B/P (MAP) 180/67 180/67 180/67 O2 Delivery Room Air 10/15/18 11:00 Temp 99.3 99.3 Pulse 77 Resp 18 B/P (MAP) 143/64 (90) Pulse Ox 98 O2 Delivery Room Air Intake and Output 10/14/18 10/14/18 10/15/18 14:59 22:59 06:59 Intake Total 440 ml 500 ml 200 ml Output Total 800 ml 1550 ml Balance 440 ml -300 ml -1350 ml SANDER QUINN MD Oct 15, 2018 13:19
[2018-10-15 14:59] VITALS: BP 163/73
[2018-10-15 19:00] VITALS: BP 167/64
[2018-10-15] MEDS: LABETALOL HCL 200 MG TABLET PO SCH (20:57)
[2018-10-15] MEDS: ALLOPURINOL 300 MG TABLET. PO SCH (20:58)
[2018-10-15] MEDS: GABAPENTIN 400 MG CAPSULE. PO SCH (20:58)
[2018-10-15 22:59] VITALS: BP_SYST 151; BP_SYST 169; BP_DIAS 67; BP_DIAS 74
[2018-10-16 03:00] VITALS: BP 159/68
[2018-10-16] MEDS: ACETAMINOPHEN 500 MG TABLET PO PRN ×3 (03:27→20:45)
[2018-10-16 05:46] LABS: CALCIUM 8.5 mg/dL (8.5-10.1); CREATININE 0.7 mg/dL (0.7-1.3)
[2018-10-16 06:03] LABS: POTASSIUM 2.9 mmol/L (3.5-5.1)
[2018-10-16 07:35] VITALS: BP 147/65
[2018-10-16] MEDS: LABETALOL HCL 200 MG TABLET PO SCH ×2 (08:40→20:39)
[2018-10-16] MEDS: LACTOBACILLUS RHAMNOSUS GG 1 CAPSULE. PO SCH ×2 (08:40→20:39)
[2018-10-16] MEDS: OMEGA-3 FATTY ACIDS/FISH OIL 1,000 MG CAPSULE. PO SCH (08:40)
[2018-10-16] MEDS: CLOPIDOGREL BISULFATE 75 MG TABLET PO SCH (08:41)
[2018-10-16] MEDS: GABAPENTIN 100 MG CAPSULE. PO SCH ×2 (08:41→16:24)
[2018-10-16] MEDS: POTASSIUM CHLORIDE 20 MEQ TABLET.ER. PO SCH ×2 (08:41→16:24)
[2018-10-16] MEDS: LISINOPRIL 20 MG TABLET PO SCH (08:41)
[2018-10-16] MEDS: ASPIRIN CHEWABLE 81 MG TABLET. PO SCH (08:43)
[2018-10-16] MEDS: MULTIVITAMIN with MINERAL TABLET. PO SCH (08:43)
[2018-10-16] MEDS: CEFEPIME HCL IV Push 1 GM VIAL. IVP SCH ×2 (08:44→20:39)
--- NOTE | 2018-10-16 10:13 | PDOC ---
Infectious Disease Note Subjective Subjective Not feeling any better Loss of appetite Ongoing fevers, Tmax 102 No SOA/N/V ROS ROS per HPI Vital Sign Vital Signs Vital Signs Date Time Temp Pulse Resp B/P (MAP) Pulse Ox O2 Delivery O2 Flow Rate FiO2 10/16/18 08:44 74 147/65 10/16/18 08:00 Room Air 10/16/18 07:35 98.6 18 99 98.6 Physical Exam PHYSICAL EXAM GENERAL: Propped up in bed, alert, NAD HEENT: Oral cavity and pharynx are clear. NECK: Supple. LUNGS: Decreased in the bases. HEART: S1, S2. 1-2/6 systolic murmur. ABDOMEN: Soft, nontender. BS present : Gonzalez is in place. EXTREMITIES: No clubbing, cyanosis or gross edema. SKIN: Warm to touch without signs of generalized rash. NEUROLOGIC: ALert, responds appropriately PIVs Labs Lab Laboratory Tests Test 10/16/18 04:44 Sodium Level 136 mmol/L (136-145) Potassium Level 2.9 mmol/L (3.5-5.1) Chloride Level 103 mmol/L (98-107) Carbon Dioxide Level 18 mmol/L (21-32) Anion Gap 15 (6-14) Blood Urea Nitrogen 20 mg/dL (8-26) Creatinine 0.7 mg/dL (0.7-1.3) Estimated GFR (Cockcroft-Gault) 108.0 Glucose Level 105 mg/dL (70-99) Calcium Level 8.5 mg/dL (8.5-10.1) Creatine Kinase 235 U/L (39-308) Micro BLOOD CULTURE Final GRAM NEGATIVE RODS, NOW IN ALL 3 BOTTLES OF BOTH SETS DRAWN. URINE CULTURE RES 1 Final Klebsiella pneumoniae MICS are expressed in micrograms per mL Amoxicillin/Clavulanic Acid S =8 Ampicillin R =R Cefepime S<=0.12 Ceftriaxone S<=0.25 Cefuroxime S<=1 Ciprofloxacin S<=0.25 Ertapenem S<=0.12 Gentamicin S<=1 Imipenem S =0.5 Levofloxacin S<=0.12 Meropenem S<=0.25 Nitrofurantoin I =64 Piperacillin/Tazobactam S<=4 Tetracycline S<=1 Tobramycin S<=1 Trimethoprim/Sulfa S<=20 Objective Assessment Gram-negative sepsis from 10/12. Urinary tract infection from 10/12 w/ Klebsiella (R amp, I NTF) History of retention, status post coude placement on the 16 of August and has had previous infections, states the last time he had antibiotics was about 2 months ago. Leukocytosis, better. Fever. Status post fall with rhabdomyolysis. History of sick sinus syndrome, status post pacemaker. Plan Plan of Care Continue Cefepime Probiotics Awaiting GNR ID/susceptibilities - BC may need Urology eval to be sure no prostatitis Attending Co-Sign The patient was seen and interviewed as well as examined at the bedside. The chart was reviewed. The case was discussed. Agree with the plan of care. NUNU CAMARILLO APRN Oct 16, 2018 10:13 KRYSTYNA LANDON MD Oct 16, 2018 13:27
[2018-10-16 10:37] VITALS: BP 148/64
--- NOTE | 2018-10-16 11:02 | PDOC ---
PROGRESS NOTES Subjective Subjective Patient wants to go home, denies other complaints at this time. Objective Objective Vital Signs Date Time Temp Pulse Resp B/P (MAP) Pulse Ox O2 Delivery O2 Flow Rate FiO2 10/16/18 10:37 99.0 65 18 148/64 (92) 98 Room Air 99.0 Intake and Output 10/16/18 06:59 Intake Total 1240 ml Output Total 1600 ml Balance -360 ml Intake Oral 240 ml IV Total 1000 ml Output Urine Total 1600 ml Physical Exam Abdomen: Normal bowel sounds, Soft, No tenderness Heart: Regular rate Extremities: No edema General: Alert, Oriented X3, No acute distress Lungs: Clear to auscultation Assessment Assessment Problems Medical Problems: (1) Rhabdomyolysis Status: Acute Plan Plan of Care 1. Sepsis with UTI - [id number]. Urine culture positive for Klebsiella, sensitive to Cefepime. Blood culture reports pending. Continue tx per ID. 2. rhabdomyolysis - CK now normal, IVF d/c yesterday PM. 3. HTN - controlled, continue present medication. 4. hypokalemia - K+ continues to decrease, probably due to previous IVF. Increase po replacement and follow. 5. CAD - stable, continue ASA and Plavix. 6. chronic urinary retention - stable, has Gonzalez at present. 7. debility - continue therapies, patient anxious to return home as soon as poss ible and not interested in prison placement. Comment Review of Relevant I have reviewed the following items bernice (where applicable) has been applied. Labs Laboratory Tests Test 10/15/18 03:15 10/16/18 04:44 White Blood Count 7.6 x10^3/uL (4.0-11.0) Red Blood Count 2.86 x10^6/uL (4.30-5.70) Hemoglobin 9.0 g/dL (13.0-17.5) Hematocrit 27.0 % (39.0-53.0) Mean Corpuscular Volume 95 fL (79-100) Mean Corpuscular Hemoglobin 31 pg (25-35) Mean Corpuscular Hemoglobin Concent 33 g/dL (31-37) Red Cell Distribution Width 15.9 % (11.5-14.5) Platelet Count 175 x10^3/uL (140-400) Sodium Level 137 mmol/L (136-145) 136 mmol/L (136-145) Potassium Level 3.1 mmol/L (3.5-5.1) 2.9 mmol/L (3.5-5.1) Chloride Level 106 mmol/L (98-107) 103 mmol/L (98-107) Carbon Dioxide Level 18 mmol/L (21-32) 18 mmol/L (21-32) Anion Gap 13 (6-14) 15 (6-14) Blood Urea Nitrogen 19 mg/dL (8-26) 20 mg/dL (8-26) Creatinine 0.7 mg/dL (0.7-1.3) 0.7 mg/dL (0.7-1.3) Estimated GFR (Cockcroft-Gault) 108.0 108.0 Glucose Level 102 mg/dL (70-99) 105 mg/dL (70-99) Calcium Level 8.2 mg/dL (8.5-10.1) 8.5 mg/dL (8.5-10.1) Creatine Kinase 235 U/L (39-308) Laboratory Tests Test 10/16/18 04:44 Sodium Level 136 mmol/L (136-145) Potassium Level 2.9 mmol/L (3.5-5.1) Chloride Level 103 mmol/L (98-107) Carbon Dioxide Level 18 mmol/L (21-32) Anion Gap 15 (6-14) Blood Urea Nitrogen 20 mg/dL (8-26) Creatinine 0.7 mg/dL (0.7-1.3) Estimated GFR (Cockcroft-Gault) 108.0 Glucose Level 105 mg/dL (70-99) Calcium Level 8.5 mg/dL (8.5-10.1) Creatine Kinase 235 U/L (39-308) Microbiology 10/12/18 Blood Culture - Final, Complete 10/12/18 Urine Culture - Final, Complete 10/12/18 Urine Culture Result 1 (BISHOP) - Final, Complete 10/12/18 Antimicrobic Susceptibility - Final, Complete Medications Current Medications Acetaminophen (Tylenol) 650 mg 1X ONCE PO Last administered on 10/12/18at 17:51; Start 10/12/18 at 17:45; Stop 10/12/18 at 17:49; Status DC Sodium Chloride 1,000 ml @ 1,000 mls/hr 1X ONCE IV Last administered on 10/12/18at 17:52; Start 10/12/18 at 17:45; Stop 10/12/18 at 18:44; Status DC Ceftriaxone Sodium (Rocephin) 1 gm 1X ONCE IVP Last administered on 10/12/18 19:52; Start 10/12/18 at 19:00; Stop 10/12/18 at 19:01; Status DC Sodium Chloride 1,000 ml @ 150 mls/hr 1X ONCE IV Last administered on 10/12/18 19:56; Start 10/12/18 at 19:45; Stop 10/13/18 at 02:24; Status DC Potassium Chloride (Klor-Con) 40 meq 1X ONCE PO Last administered on 10/12/18 19:50; Start 10/12/18 at 19:45; Stop 10/12/18 at 19:46; Status DC Acetaminophen (Tylenol) 650 mg PRN Q4HRS PRN PO FEVER Last administered on 10/13/18 01:08; Start 10/12/18 at 21:00; Stop 10/13/18 at 20:59; Status DC Allopurinol (Zyloprim) 300 mg HS PO Last administered on 10/15/18 20:58; Start 10/13/18 at 21:00 Aspirin (Children'S Aspirin) 81 mg DAILY PO Last administered on 10/16/18 08:43; Start 10/13/18 at 09:00 Atenolol (Tenormin) 25 mg BID PO ; Start 10/13/18 at 09:00; Stop 10/13/18 at 09:00; Status DC Atorvastatin Calcium (Lipitor) 20 mg HS PO ; Start 10/13/18 at 21:00; Stop 10/13/18 at 21:00; Status DC Clopidogrel Bisulfate (Plavix) 75 mg DAILY PO Last administered on 10/16/18 08:41; Start 10/13/18 at 09:00 Colchicine (Colcrys) 0.6 mg BID PO ; Start 10/13/18 at 09:00; Stop 10/13/18 at 09:00; Status DC Gabapentin (Neurontin) 100 mg BID94 PO Last administered on 10/16/18 08:41; Start 10/13/18 at 09:00 Gabapentin (Neurontin) 1,200 mg HS PO Last administered on 10/15/18at 20:58; Start 10/13/18 at 21:00 Lisinopril (Prinivil) 20 mg DAILY PO Last administered on 10/14/18at 08:38; Start 10/13/18 at 09:00; Stop 10/14/18 at 14:55; Status DC Multivitamins (Thera M Plus) 1 tab DAILY PO Last administered on 10/16/18at 08:43; Start 10/13/18 at 09:00 Nifedipine (Procardia Xl) 60 mg DAILY PO Last administered on 10/16/18at 08:44; Start 10/13/18 at 09:00 Fish Oil (Fish Oil) 1,000 mg DAILY PO Last administered on 10/16/18at 08:40; Start 10/13/18 at 09:00 Atenolol (Tenormin) 12.5 mg BID PO ; Start 10/13/18 at 09:00; Stop 10/13/18 at 09:00; Status DC Naproxen (Naprosyn) 500 mg BID PO ; Start 10/13/18 at 09:00; Stop 10/13/18 at 09:00; Status DC Atenolol (Tenormin) 12.5 mg BID PO Last administered on 10/15/18at 08:32; Start 10/12/18 at 23:00; Stop 10/15/18 at 16:17; Status DC Atorvastatin Calcium (Lipitor) 40 mg HS PO ; Start 10/13/18 at 21:00; Stop 10/13/18 at 21:00; Status DC Colchicine (Colcrys) 0.6 mg PRN BID PRN PO GOUT; Start 10/12/18 at 23:00 Nifedipine (Procardia Xl) 60 mg 1X ONCE PO Last administered on 10/13/18at 01:46; Start 10/13/18 at 02:00; Stop 10/13/18 at 02:01; Status DC Labetalol HCl (Normodyne Iv Push) 20 mg PRN Q2HR PRN IVP HYPERTENSION, 2ND CHOICE Last administered on 10/14/18at 03:02; Start 10/13/18 at 01:45 Potassium Chloride (Klor-Con) 20 meq 1X ONCE PO Last administered on 10/13/18at 09:08; Start 10/13/18 at 07:45; Stop 10/13/18 at 07:46; Status DC Hydralazine HCl (Apresoline Inj) 10 mg PRN Q4HRS PRN IVP ELEVATED BP, 1ST CHOICE; Start 10/13/18 at 09:00 Sodium Chloride 1,000 ml @ 100 mls/hr Q10H IV Last administered on 10/15/18at 12:15; Start 10/13/18 at 09:00; Stop 10/15/18 at 17:00; Status DC Levofloxacin/ Dextrose 100 ml @ 100 mls/hr Q24H IV Last administered on 10/13/18 13:57; Start 10/13/18 at 13:00; Stop 10/13/18 at 15:37; Status DC Cefepime HCl (Maxipime) 1 gm Q12HR IVP Last administered on 10/16/18 08:44; Start 10/13/18 at 16:00 Lactobacillus Rhamnosus (Culturelle) 1 cap BID PO Last administered on 10/16/18 08:40; Start 10/14/18 at 09:00 Potassium Chloride (Klor-Con) 40 meq 1X ONCE PO Last administered on 10/14/18 09:23; Start 10/14/18 at 09:00; Stop 10/14/18 at 09:01; Status DC Potassium Chloride (Klor-Con) 10 meq DAILYWBKFT PO Last administered on 10/15/18at 08:31; Start 10/15/18 at 08:00; Stop 10/15/18 at 13:16; Status DC Lisinopril (Prinivil) 40 mg DAILY PO Last administered on 10/16/18at 08:41; Start 10/15/18 at 09:00 Lisinopril (Prinivil) 20 mg 1X ONCE PO Last administered on 10/14/18 15:57; Start 10/14/18 at 16:00; Stop 10/14/18 at 16:01; Status DC Acetaminophen (Tylenol) 1,000 mg PRN Q6HRS PRN PO MILD PAIN Last administered on 10/16/18at 03:27; Start 10/14/18 at 19:30 Potassium Chloride (Klor-Con) 10 meq BIDWMEALS PO Last administered on 10/15/18at 16:38; Start 10/15/18 at 17:00; Stop 10/16/18 at 06:13; Status DC Labetalol HCl (Trandate) 200 mg BID PO Last administered on 10/16/18at 08:40; Start 10/15/18 at 21:00 Potassium Chloride (Klor-Con) 20 meq BIDWMEALS PO Last administered on 10/16/18at 08:41; Start 10/16/18 at 07:00 Active Scripts Active Reported Fish Oil 1,000 Mg Capsule ([place]-3 Fatty Acids/Fish Oil) 1 Each Capsule 1 Each PO DAILY Naprosyn (Naproxen) 500 Mg Tablet 1 Tab PO BID Atenolol 25 Mg Tablet 0.5 Tab PO BID Lisinopril 40 Mg Tablet 0.5 Tab PO DAILY Gabapentin (Gabapentin) 400 Mg Capsule 3 Cap PO HS Gabapentin (Gabapentin) 100 Mg Capsule 100 Mg PO BID Plavix (Clopidogrel Bisulfate) 75 Mg Tablet 1 Tab PO DAILY Atorvastatin Calcium 40 Mg Tablet 1 Tab PO HS Allopurinol 300 Mg Tablet 1 Tab PO HS Aspirin 81 Mg Tab.chew 1 Tab PO DAILY Multivitamins (Multivitamin) 1 Each Tablet 1 Tab PO DAILY Colcrys (Colchicine) 0.6 Mg Tablet 1 Tab PO PRN BID PRN onset of gout symptoms Nifedipine Er (Nifedipine) 60 Mg Tab.er.24 1 Tab PO DAILY Vitals/I & O Vital Sign - Last 24 Hours 10/15/18 10/15/18 10/15/18 10/15/18 11:00 14:59 19:00 19:23 Temp 99.3 100.5 99.0 99.3 100.5 99.0 Pulse 77 87 80 Resp 18 B/P (MAP) 143/64 (90) 163/73 (103) 167/64 (98) Pulse Ox 98 99 97 O2 Delivery Room Air Room Air Room Air Room Air 10/15/18 10/15/18 10/16/18 10/16/18 20:57 22:59 03:00 07:35 Temp 99.6 102.0 98.6 99.6 102.0 98.6 Pulse 87 80 89 74 Resp 18 B/P (MAP) 163/73 151/67 (95) 159/68 (98) 147/65 (92) Pulse Ox 95 97 99 O2 Delivery Room Air Room Air Room Air 10/16/18 10/16/18 10/16/1819 08:00 08:40 08:41 08:44 Pulse 74 74 74 B/P (MAP) 147/65 147/65 147/65 O2 Delivery Room Air 10/16/18 10:37 Temp 99.0 99.0 Pulse 65 Resp 18 B/P (MAP) 148/64 (92) Pulse Ox 98 O2 Delivery Room Air Intake and Output 10/15/18 10/15/18 10/16/18 14:59 22:59 06:59 Intake Total 1000 ml 180 ml 60 ml Output Total 1100 ml 500 ml Balance 1000 ml -920 ml -440 ml SANDER QUINN MD Oct 16, 2018 11:01
--- NOTE | 2018-10-16 11:33 | PDOC ---
PROGRESS NOTES Subjective Subjective Denied any chest pain. Wants to go home. Afebrile today. Objective Objective Vital Signs Date Time Temp Pulse Resp B/P (MAP) Pulse Ox O2 Delivery O2 Flow Rate FiO2 10/16/18 10:37 99.0 65 18 148/64 (92) 98 Room Air 99.0 Intake and Output 10/16/18 06:59 Intake Total 1240 ml Output Total 1600 ml Balance -360 ml Intake Oral 240 ml IV Total 1000 ml Output Urine Total 1600 ml Physical Exam Abdomen: Normal bowel sounds, Soft, No tenderness Heart: Regular rate Extremities: No edema General: Alert, Oriented X3, No acute distress HEENT: Atraumatic, Mucous membr. moist/pink Lungs: Clear to auscultation MUSCULOSKELETAL: Osteoarthritic changes both hands Neuro: Normal speech, Sensation intact Psych/Mental Status: Mental status NL, Mood NL Skin: No breakdown, No significant lesion Assessment Assessment 1. UTI/fevers. Sepsis. Improving. Continue treatment per ID team. 2. Mechanical fall: No syncope. 3. Rhabdomyolysis; due to above. CK improved. Continue supportive care 4. Accelerated HTN; blood pressure better controlled with labetalol. 5. Elevated troponin: peaked at 0.1, EKG SR without acute changes by comparison. Most probably demand ischemia. Doubt ACS. 6. CAD: 08/16/18 s/p PCI/JOI to RCA. Recent EF 60%, clinically stable. 7. PPM in situ: [place], hx of SSS.. SR with occasional V pacing. Interrogation with normal device function. No significant ectopy noted. Plan Plan of Care Problems Medical Problems: (1) Rhabdomyolysis Status: Acute Comment Review of Relevant I have reviewed the following items bernice (where applicable) has been applied. Labs Laboratory Tests Test 10/16/18 04:44 Sodium Level 136 mmol/L (136-145) Potassium Level 2.9 mmol/L (3.5-5.1) Chloride Level 103 mmol/L (98-107) Carbon Dioxide Level 18 mmol/L (21-32) Anion Gap 15 (6-14) Blood Urea Nitrogen 20 mg/dL (8-26) Creatinine 0.7 mg/dL (0.7-1.3) Estimated GFR (Cockcroft-Gault) 108.0 Glucose Level 105 mg/dL (70-99) Calcium Level 8.5 mg/dL (8.5-10.1) Creatine Kinase 235 U/L (39-308) Microbiology 10/12/18 Blood Culture - Final, Complete 10/12/18 Urine Culture - Final, Complete 10/12/18 Urine Culture Result 1 (BISHOP) - Final, Complete 10/12/18 Antimicrobic Susceptibility - Final, Complete Medications Current Medications Labetalol HCl (Trandate) 200 mg BID PO Last administered on 10/16/18at 08:40; Start 10/15/18 at 21:00 Potassium Chloride (Klor-Con) 10 meq BIDWMEALS PO Last administered on 10/15/18at 16:38; Start 10/15/18 at 17:00; Stop 10/16/18 at 06:13; Status DC Potassium Chloride (Klor-Con) 20 meq BIDWMEALS PO Last administered on 10/16/18at 08:41; Start 10/16/18 at 07:00 Vitals/I & O Vital Sign - Last 24 Hours 10/15/18 10/15/18 10/15/18 10/15/18 14:59 19:00 19:23 20:57 Temp 100.5 99.0 100.5 99.0 Pulse 87 80 87 Resp 24 18 B/P (MAP) 163/73 (103) 167/64 (98) 163/73 Pulse Ox 99 97 O2 Delivery Room Air Room Air Room Air 10/15/18 10/16/18 10/16/18 10/16/18 22:59 03:00 07:35 08:00 Temp 99.6 102.0 98.6 99.6 102.0 98.6 Pulse 80 89 74 Resp 18 20 18 B/P (MAP) 151/67 (95) 159/68 (98) 147/65 (92) Pulse Ox 95 97 99 O2 Delivery Room Air Room Air Room Air Room Air 10/16/18 10/16/18 10/16/18 10/16/18 08:40 08:41 08:44 10:37 Temp 99.0 99.0 Pulse 74 74 74 65 Resp 18 B/P (MAP) 147/65 147/65 147/65 148/64 (92) Pulse Ox 98 O2 Delivery Room Air Intake and Output 10/15/18 10/15/18 10/16/18 14:59 22:59 06:59 Intake Total 1000 ml 180 ml 60 ml Output Total 1100 ml 500 ml Balance 1000 ml -920 ml -440 ml ANGELA OSBORN MD Oct 16, 2018 11:33
[2018-10-16 15:05] VITALS: BP 159/57
[2018-10-16 19:00] VITALS: BP 151/61
[2018-10-16] MEDS: GABAPENTIN 400 MG CAPSULE. PO SCH (20:38)
[2018-10-16] MEDS: ALLOPURINOL 300 MG TABLET. PO SCH (20:39)
[2018-10-16 23:42] VITALS: BP 127/61
[2018-10-17] VITALS (7 sets, daily range): BP systolic 115–150; BP diastolic 56–63
[2018-10-17 06:26] LABS: CALCIUM 8.3 mg/dL (8.5-10.1); CREATININE 0.9 mg/dL (0.7-1.3); GFR 80.8; POTASSIUM 3.5 mmol/L (3.5-5.1)
[2018-10-17] MEDS: ASPIRIN CHEWABLE 81 MG TABLET. PO SCH (08:14)
[2018-10-17] MEDS: POTASSIUM CHLORIDE 20 MEQ TABLET.ER. PO SCH ×2 (08:14→17:20)
[2018-10-17] MEDS: OMEGA-3 FATTY ACIDS/FISH OIL 1,000 MG CAPSULE. PO SCH (08:14)
[2018-10-17] MEDS: GABAPENTIN 100 MG CAPSULE. PO SCH ×2 (08:15→17:20)
[2018-10-17] MEDS: LISINOPRIL 20 MG TABLET PO SCH (08:16)
[2018-10-17] MEDS: MULTIVITAMIN with MINERAL TABLET. PO SCH (08:16)
[2018-10-17] MEDS: LACTOBACILLUS RHAMNOSUS GG 1 CAPSULE. PO SCH ×2 (08:16→20:22)
[2018-10-17] MEDS: LABETALOL HCL 200 MG TABLET PO SCH ×2 (08:16→20:21)
[2018-10-17] MEDS: CLOPIDOGREL BISULFATE 75 MG TABLET PO SCH (08:16)
--- NOTE | 2018-10-17 09:06 | PDOC ---
PROGRESS NOTES Subjective Still febrile but feels better, he knows he is weak, he doesn't remember initial fall. No therapy notes from weekend Objective Tmax 100.3 General: A&O Heart: RRR Lungs: CTA Abd: soft, non tender Ext: no C/C/E WBC: now normal Hgb: low but recovering from IV fluid dilution K+: normal Creat: baseline Vital Signs Vital Signs Date Time Temp Pulse Resp B/P (MAP) Pulse Ox O2 Delivery O2 Flow Rate FiO2 10/17/18 08:16 77 150/63 10/17/18 07:38 98.1 12 98 Room Air 98.1 I & O Intake and Output 10/17/18 06:59 Intake Total 620 ml Output Total 1200 ml Balance -580 ml Intake Oral 620 ml Output Urine Total 1200 ml Assessment and Plan 1. Sepsis with UTI - Blood and Urine cultures positive for Klebsiella, sensitive to Cefepime -Continue. 2. rhabdomyolysis - CK now normal, IVF d/pj. 3. HTN - fairly well controlled, continue present medication. 4. hypokalemia - resolved with replacement. 5. CAD - stable, continue ASA and Plavix. 6. chronic urinary retention - stable, has Gonzalez at present but self caths at home. 7. debility - fall at home PT/OT recommending SNU, pt knows he is weak 8. anemia - monitor, assess iron, B12 Gamaliel POLLARD MD Oct 17, 2018 09:06
--- NOTE | 2018-10-17 09:08 | PDOC ---
Infectious Disease Note Subjective Subjective Not feeling any better Loss of appetite Ongoing fevers, Tmax 102 No SOA/N/V Vital Sign Vital Signs Vital Signs Date Time Temp Pulse Resp B/P (MAP) Pulse Ox O2 Delivery O2 Flow Rate FiO2 10/17/18 08:16 77 150/63 10/17/18 07:38 98.1 12 98 Room Air 98.1 Physical Exam PHYSICAL EXAM GENERAL: Propped up in bed, alert, NAD HEENT: Oral cavity and pharynx are clear. NECK: Supple. LUNGS: Decreased in the bases. HEART: S1, S2. 1-2/6 systolic murmur. ABDOMEN: Soft, nontender. BS present : Gonzalez is in place. EXTREMITIES: No clubbing, cyanosis or gross edema. SKIN: Warm to touch without signs of generalized rash. NEUROLOGIC: ALert, responds appropriately PIVs Labs Lab Laboratory Tests Test 10/17/18 05:30 Sodium Level 140 mmol/L (136-145) Potassium Level 3.5 mmol/L (3.5-5.1) Chloride Level 107 mmol/L (98-107) Carbon Dioxide Level 17 mmol/L (21-32) Anion Gap 16 (6-14) Blood Urea Nitrogen 26 mg/dL (8-26) Creatinine 0.9 mg/dL (0.7-1.3) Estimated GFR (Cockcroft-Gault) 80.8 Glucose Level 100 mg/dL (70-99) Calcium Level 8.3 mg/dL (8.5-10.1) Micro BLOOD CULTURE LC Final Final report BLD CULT RESULT 1 Final Klebsiella pneumoniae ANTIMICROBIAL SUSCEPTIBILITY Final Comment S = Susceptible; I = Intermediate; R = Resistant P = Positive; N = Negative MICS are expressed in micrograms per mL Antibiotic RSLT#1 RSLT#2 RSLT#3 RSLT#4 Amoxicillin/Clavulanic Acid S<=2 Ampicillin R =R Cefepime S<=0.12 Ceftriaxone S<=0.25 Cefuroxime S<=1 Ciprofloxacin S<=0.25 Ertapenem S<=0.12 Gentamicin S<=1 Imipenem S<=0.25 Levofloxacin S<=0.12 Meropenem S<=0.25 Piperacillin/Tazobactam S<=4 Tetracycline S<=1 Tobramycin S<=1 Trimethoprim/Sulfa S<=20 Performed at: [address], [place] [id number] [employer]ug Boat Engineer: RENATA Foley MD, Phone: [phone] URINE CULTURE RES 1 Final Klebsiella pneumoniae Greater than 100,000 colony forming units per mL Cefazolin <=4 ug/mL Cefazolin with an BISHOP <=16 predicts susceptibility to the oral agents cefaclor, cefdinir, cefpodoxime, cefprozil, cefuroxime, cephalexin, and loracarbef when used for therapy of uncomplicated urinary tract infections due to E. coli, Klebsiella pneumoniae, and Proteus mirabilis. ANTIMICROBIAL SUSCEPTIBILITY Final Comment S = Susceptible; I = Intermediate; R = Resistant P = Positive; N = Negative MICS are expressed in micrograms per mL Antibiotic RSLT#1 RSLT#2 RSLT#3 RSLT#4 Amoxicillin/Clavulanic Acid S =8 Ampicillin R =R Cefepime S<=0.12 Ceftriaxone S<=0.25 Cefuroxime S<=1 Ciprofloxacin S<=0.25 Ertapenem S<=0.12 Gentamicin S<=1 Imipenem S =0.5 Levofloxacin S<=0.12 Meropenem S<=0.25 Nitrofurantoin I =64 Piperacillin/Tazobactam S<=4 Tetracycline S<=1 Tobramycin S<=1 Trimethoprim/Sulfa S<=20 Performed at: [address], [place] [id number] Objective Assessment Gram-negative sepsis from 10/12. Klebsiella Urinary tract infection from 10/12 w/ Klebsiella (R amp, I NTF) History of retention, status post coude placement on the 16 of August and has had previous infections, states the last time he had antibiotics was about 2 months ago. Leukocytosis, better. Fever. Status post fall with rhabdomyolysis. History of sick sinus syndrome, status post pacemaker. Plan Plan of Care change cefepime to po cipro supportive care pt/ot KRYSTYNA LANDON MD Oct 17, 2018 09:08
[2018-10-17] MEDS ORDERED: CEFEPIME HCL IV Push 1 GM VIAL. IVP ONE (10:15)
[2018-10-17] MEDS: CIPROFLOXACIN HCL 250 MG TABLET. PO SCH ×2 (11:49→20:22)
--- NOTE | 2018-10-17 14:24 | NUR ---
SW following up with referral regarding SNU evaluation. SW met with to discuss PT/OT recommendations, long-term unit choices, and Medicare coverage. Pt has been notified of Medicare coverage (stay is covered in full the first 20 days and starting on day 21, they will be responsible for 20% of the cost) regarding long-term units. Pt chose [facility]. SW phoned and faxed referral, phone: [phone], fax: [phone]. SW will await acceptance decision and proceed accordingly.
--- NOTE | 2018-10-17 16:42 | RAD ---
Portable left elbow, 2 views, 10/17/2018: HISTORY: Elbow swelling, fall There are moderate degenerative changes with numerous chronic appearing periarticular calcifications. Some of these appear to represent loose bodies within the joint with a probable joint effusion. The normal fat planes are distorted. Deformity of the radial head appears old. No definite acute fracture or dislocation is seen. There is moderate subcutaneous edema. IMPRESSION: Degenerative change with extensive periarticular calcifications compatible with chronic loose bodies and an associated joint effusion. No definite acute fracture is seen. MR scanning may be useful for further evaluation, if clinically indicated. Electronically signed by: Roderick Roblero MD (10/17/2018 4:40 PM) [facility]
[2018-10-17] MEDS: ACETAMINOPHEN 500 MG TABLET PO PRN (17:26)
[2018-10-17] MEDS: GABAPENTIN 400 MG CAPSULE. PO SCH (20:20)
[2018-10-17] MEDS: ALLOPURINOL 300 MG TABLET. PO SCH (20:22)
[2018-10-18 03:59] VITALS: BP 128/58
[2018-10-18] MEDS: ACETAMINOPHEN 500 MG TABLET PO PRN ×2 (04:16→20:04)
[2018-10-18 04:25] LABS: BASO % 0 % (0-3); EOS # 0.1 x10^3/uL (0.0-0.7); EOS % 2 % (0-3); HEMATOCRIT 24.9 % (39.0-53.0); HEMOGLOBIN 8.5 g/dL (13.0-17.5); LYMPH # 0.9 x10^3/uL (1.0-4.8); LYMPH % 13 % (24-48); MEAN CORPUSCULAR HEMOGLOBIN 32 pg (25-35); MEAN CORPUSCULAR HGB CONC 34 g/dL (31-37); MEAN CORPUSCULAR VOLUME 93 fL (79-100); MONO # 0.5 x10^3/uL (0.0-1.1); MONO % 7 % (0-9); NEUT # 5.2 x10^3uL (1.8-7.7); NEUT % 78 % (31-73); PLATELET COUNT 249 x10^3/uL (140-400); RED BLOOD COUNT 2.68 x10^6/uL (4.30-5.70); RED CELL DISTRIBUTION WIDTH 16.1 % (11.5-14.5); WHITE BLOOD COUNT 6.7 x10^3/uL (4.0-11.0)
[2018-10-18 05:28] LABS: ALBUMIN 2.2 g/dL (3.4-5.0); ALBUMIN/GLOBULIN RATIO 0.5 (1.0-1.7); CALCIUM 8.7 mg/dL (8.5-10.1); GFR 71.5; POTASSIUM 3.5 mmol/L (3.5-5.1); TOTAL BILIRUBIN 0.4 mg/dL (0.2-1.0); TOTAL PROTEIN 6.7 g/dL (6.4-8.2)
[2018-10-18 07:00] VITALS: BP 130/55
[2018-10-18] MEDS: MULTIVITAMIN with MINERAL TABLET. PO SCH (08:37)
[2018-10-18] MEDS: LABETALOL HCL 200 MG TABLET PO SCH ×2 (08:37→20:05)
[2018-10-18] MEDS: LACTOBACILLUS RHAMNOSUS GG 1 CAPSULE. PO SCH ×2 (08:37→20:03)
[2018-10-18] MEDS: POTASSIUM CHLORIDE 20 MEQ TABLET.ER. PO SCH ×2 (08:38→17:00)
[2018-10-18] MEDS: CLOPIDOGREL BISULFATE 75 MG TABLET PO SCH (08:38)
[2018-10-18] MEDS: GABAPENTIN 100 MG CAPSULE. PO SCH ×2 (08:38→16:00)
[2018-10-18] MEDS: OMEGA-3 FATTY ACIDS/FISH OIL 1,000 MG CAPSULE. PO SCH (08:39)
[2018-10-18] MEDS: ASPIRIN CHEWABLE 81 MG TABLET. PO SCH (08:39)
[2018-10-18] MEDS: LISINOPRIL 20 MG TABLET PO SCH (08:41)
--- NOTE | 2018-10-18 08:49 | PDOC ---
PROGRESS NOTES Subjective Not much energy, febrile again this am Objective febrile at 3 am General: poor appetite, not feeling well Heart: RRR Lungs: diminished bases Abd: soft Ext: left elbow effusion with loose bodies on XRay WBC: nl Hgb: 8.5 Vital Signs Vital Signs Date Time Temp Pulse Resp B/P (MAP) Pulse Ox O2 Delivery O2 Flow Rate FiO2 10/18/18 07:00 98.2 69 18 130/55 (80) Room Air 98.0 98.2 10/18/18 03:59 96 I & O Intake and Output 10/18/18 07:00 Intake Total 980 ml Output Total 1176 ml Balance -196 ml Intake Oral 980 ml Output Urine Total 1175 ml Stool Total 1 ml # Bowel Movements 1 Assessment and Plan 1. Sepsis with UTI - Blood and Urine cultures positive for Klebsiella, changed to po cipro yesterday. 2. rhabdomyolysis - CK now normal, IVF d/pj. 3. HTN - fairly well controlled, continue present medication. 4. hypokalemia - resolved with replacement. 5. CAD - stable, continue ASA and Plavix. 6. chronic urinary retention - stable, has Gonzalez at present but self caths at home. 7. debility - fall at home PT/OT recommending SNU, pt knows he is weak 8. anemia - iron low, B12 normal 9. suspect atelectasis - check chest Xray, add Fanny and IS Gamaliel POLLARD MD Oct 18, 2018 08:48
[2018-10-18] MEDS: CIPROFLOXACIN HCL 250 MG TABLET. PO SCH ×2 (09:00→20:04)
--- NOTE | 2018-10-18 09:44 | PDOC ---
Infectious Disease Note Subjective Subjective feeling good, up in chair Loss of appetite Ongoing fevers, Tmax 102 No SOA/N/V Vital Sign Vital Signs Vital Signs Date Time Temp Pulse Resp B/P (MAP) Pulse Ox O2 Delivery O2 Flow Rate FiO2 10/18/18 08:41 69 130/55 10/18/18 07:00 98.2 18 Room Air 98.0 98.2 10/18/18 03:59 96 Physical Exam PHYSICAL EXAM GENERAL: Propped up in bed, alert, NAD HEENT: Oral cavity and pharynx are clear. NECK: Supple. LUNGS: Decreased in the bases. HEART: S1, S2. 1-2/6 systolic murmur. ABDOMEN: Soft, nontender. BS present : Gonzalez is in place. EXTREMITIES: No clubbing, cyanosis or gross edema. SKIN: Warm to touch without signs of generalized rash. NEUROLOGIC: ALert, responds appropriately PIVs Labs Lab Laboratory Tests Test 10/18/18 03:35 White Blood Count 6.7 x10^3/uL (4.0-11.0) Red Blood Count 2.68 x10^6/uL (4.30-5.70) Hemoglobin 8.5 g/dL (13.0-17.5) Hematocrit 24.9 % (39.0-53.0) Mean Corpuscular Volume 93 fL (79-100) Mean Corpuscular Hemoglobin 32 pg (25-35) Mean Corpuscular Hemoglobin Concent 34 g/dL (31-37) Red Cell Distribution Width 16.1 % (11.5-14.5) Platelet Count 249 x10^3/uL (140-400) Neutrophils (%) (Auto) 78 % (31-73) Lymphocytes (%) (Auto) 13 % (24-48) Monocytes (%) (Auto) 7 % (0-9) Eosinophils (%) (Auto) 2 % (0-3) Basophils (%) (Auto) 0 % (0-3) Neutrophils # (Auto) 5.2 x10^3uL (1.8-7.7) Lymphocytes # (Auto) 0.9 x10^3/uL (1.0-4.8) Monocytes # (Auto) 0.5 x10^3/uL (0.0-1.1) Eosinophils # (Auto) 0.1 x10^3/uL (0.0-0.7) Basophils # (Auto) 0.0 x10^3/uL (0.0-0.2) Sodium Level 137 mmol/L (136-145) Potassium Level 3.5 mmol/L (3.5-5.1) Chloride Level 106 mmol/L (98-107) Carbon Dioxide Level 16 mmol/L (21-32) Anion Gap 15 (6-14) Blood Urea Nitrogen 33 mg/dL (8-26) Creatinine 1.0 mg/dL (0.7-1.3) Estimated GFR (Cockcroft-Gault) 71.5 BUN/Creatinine Ratio 33 (6-20) Glucose Level 103 mg/dL (70-99) Calcium Level 8.7 mg/dL (8.5-10.1) Total Bilirubin 0.4 mg/dL (0.2-1.0) Aspartate Amino Transf (AST/SGOT) 57 U/L (15-37) Alanine Aminotransferase (ALT/SGPT) 61 U/L (16-63) Alkaline Phosphatase 70 U/L (46-116) Total Protein 6.7 g/dL (6.4-8.2) Albumin 2.2 g/dL (3.4-5.0) Albumin/Globulin Ratio 0.5 (1.0-1.7) Micro BLOOD CULTURE LC Final Final report BLD CULT RESULT 1 Final Klebsiella pneumoniae ANTIMICROBIAL SUSCEPTIBILITY Final Comment S = Susceptible; I = Intermediate; R = Resistant P = Positive; N = Negative MICS are expressed in micrograms per mL Antibiotic RSLT#1 RSLT#2 RSLT#3 RSLT#4 Amoxicillin/Clavulanic Acid S<=2 Ampicillin R =R Cefepime S<=0.12 Ceftriaxone S<=0.25 Cefuroxime S<=1 Ciprofloxacin S<=0.25 Ertapenem S<=0.12 Gentamicin S<=1 Imipenem S<=0.25 Levofloxacin S<=0.12 Meropenem S<=0.25 Piperacillin/Tazobactam S<=4 Tetracycline S<=1 Tobramycin S<=1 Trimethoprim/Sulfa S<=20 Performed at: DA - [facility] [address] [facility] [address], [place], [place] [id number] Commercial Front Load Driver: RENATA Foley MD, Phone: [phone] URINE CULTURE RES 1 Final Klebsiella pneumoniae Greater than 100,000 colony forming units per mL Cefazolin <=4 ug/mL Cefazolin with an BISHOP <=16 predicts susceptibility to the oral agents cefaclor, cefdinir, cefpodoxime, cefprozil, cefuroxime, cephalexin, and loracarbef when used for therapy of uncomplicated urinary tract infections due to E. coli, Klebsiella pneumoniae, and Proteus mirabilis. ANTIMICROBIAL SUSCEPTIBILITY Final Comment S = Susceptible; I = Intermediate; R = Resistant P = Positive; N = Negative MICS are expressed in micrograms per mL Antibiotic RSLT#1 RSLT#2 RSLT#3 RSLT#4 Amoxicillin/Clavulanic Acid S =8 Ampicillin R =R Cefepime S<=0.12 Ceftriaxone S<=0.25 Cefuroxime S<=1 Ciprofloxacin S<=0.25 Ertapenem S<=0.12 Gentamicin S<=1 Imipenem S =0.5 Levofloxacin S<=0.12 Meropenem S<=0.25 Nitrofurantoin I =64 Piperacillin/Tazobactam S<=4 Tetracycline S<=1 Tobramycin S<=1 Trimethoprim/Sulfa S<=20 Performed at: - [facility] [address], [place], [place] [id number] Objective Assessment Gram-negative sepsis from 10/12. Klebsiella Urinary tract infection from 10/12 w/ Klebsiella (R amp, I NTF) History of retention, status post coude placement on the 16 of August and has had previous infections, states the last time he had antibiotics was about 2 months ago. Leukocytosis, better. Fever. Status post fall with rhabdomyolysis. History of sick sinus syndrome, status post pacemaker. Plan Plan of Care po cipro supportive care pt/ot d/w KRYSTYNA Lopez MD Oct 18, 2018 09:44
--- NOTE | 2018-10-18 10:23 | RAD ---
EXAM: CHEST 1 VIEW History: Fever COMPARISON: 10/12/2018 TECHNIQUE: Single portable radiograph of the chest FINDINGS: Low lung volumes and technique accentuates heart size and pulmonary vascularity. Mild cardiomegaly. Left-sided cardiac pacer is unchanged. Minimal bibasilar lung airspace opacities likely atelectasis or infiltrates. IMPRESSION: Minimal bibasilar lung airspace opacities likely atelectasis or infiltrates. Electronically signed by: Ashu Pedroza MD (10/18/2018 10:20 AM) [id number]
[2018-10-18 11:00] VITALS: BP 122/56
[2018-10-18] MEDS: IPRATRPIUM/ALBUTEROL 0.5/2.5MG 3 ML NEBU. NEB SCH ×3 (11:10→19:43)
[2018-10-18] MEDS: ASCORBIC ACID 500 MG TABLET PO SCH (13:00)
[2018-10-18] MEDS: FERROUS SULFATE 325 MG TABLET. PO SCH (13:01)
[2018-10-18 15:00] VITALS: BP 135/57
[2018-10-18 19:03] VITALS: BP 139/52
[2018-10-18] MEDS: GABAPENTIN 400 MG CAPSULE. PO SCH (20:02)
[2018-10-18] MEDS: ALLOPURINOL 300 MG TABLET. PO SCH (21:00)
[2018-10-18 23:00] VITALS: BP 119/52
[2018-10-19 03:11] VITALS: BP 131/54
[2018-10-19] MEDS: ACETAMINOPHEN 500 MG TABLET PO PRN (06:17)
[2018-10-19 07:00] VITALS: BP 128/56
[2018-10-19] MEDS: IPRATRPIUM/ALBUTEROL 0.5/2.5MG 3 ML NEBU. NEB SCH ×3 (07:50→16:36)
[2018-10-19] MEDS: FERROUS SULFATE 325 MG TABLET. PO SCH (08:07)
[2018-10-19] MEDS: ASCORBIC ACID 500 MG TABLET PO SCH (08:07)
[2018-10-19] MEDS: OMEGA-3 FATTY ACIDS/FISH OIL 1,000 MG CAPSULE. PO SCH (08:08)
[2018-10-19] MEDS: CIPROFLOXACIN HCL 250 MG TABLET. PO SCH (08:08)
[2018-10-19] MEDS: ASPIRIN CHEWABLE 81 MG TABLET. PO SCH (08:08)
[2018-10-19] MEDS: MULTIVITAMIN with MINERAL TABLET. PO SCH (08:08)
[2018-10-19] MEDS: GABAPENTIN 100 MG CAPSULE. PO SCH ×2 (08:08→15:41)
[2018-10-19] MEDS: LABETALOL HCL 200 MG TABLET PO SCH (08:09)
[2018-10-19] MEDS: LISINOPRIL 20 MG TABLET PO SCH (08:09)
[2018-10-19] MEDS: POTASSIUM CHLORIDE 20 MEQ TABLET.ER. PO SCH (08:10)
[2018-10-19] MEDS: CLOPIDOGREL BISULFATE 75 MG TABLET PO SCH (08:10)
[2018-10-19] MEDS: LACTOBACILLUS RHAMNOSUS GG 1 CAPSULE. PO SCH (08:10)
--- NOTE | 2018-10-19 10:06 | PDOC ---
Infectious Disease Note Subjective Subjective feeling good, up in chair Loss of appetite No SOA/N/V Vital Sign Vital Signs Vital Signs Date Time Temp Pulse Resp B/P (MAP) Pulse Ox O2 Delivery O2 Flow Rate FiO2 10/19/18 08:10 71 128/56 10/19/18 08:00 Room Air 10/19/18 07:50 96 10/19/18 07:00 98.3 17 98.3 10/18/18 20:12 98.0 Physical Exam PHYSICAL EXAM GENERAL: Propped up in bed, alert, NAD HEENT: Oral cavity and pharynx are clear. NECK: Supple. LUNGS: Decreased in the bases. HEART: S1, S2. 1-2/6 systolic murmur. ABDOMEN: Soft, nontender. BS present : Gonzalez is in place. EXTREMITIES: No clubbing, cyanosis or gross edema. SKIN: Warm to touch without signs of generalized rash. NEUROLOGIC: ALert, responds appropriately PIVs Labs Micro BLOOD CULTURE LC Final Final report BLD CULT RESULT 1 Final Klebsiella pneumoniae ANTIMICROBIAL SUSCEPTIBILITY Final Comment S = Susceptible; I = Intermediate; R = Resistant P = Positive; N = Negative MICS are expressed in micrograms per mL Antibiotic RSLT#1 RSLT#2 RSLT#3 RSLT#4 Amoxicillin/Clavulanic Acid S<=2 Ampicillin R =R Cefepime S<=0.12 Ceftriaxone S<=0.25 Cefuroxime S<=1 Ciprofloxacin S<=0.25 Ertapenem S<=0.12 Gentamicin S<=1 Imipenem S<=0.25 Levofloxacin S<=0.12 Meropenem S<=0.25 Piperacillin/Tazobactam S<=4 Tetracycline S<=1 Tobramycin S<=1 Trimethoprim/Sulfa S<=20 Performed at: DA - [facility] [address] [facility] [address], [place], [place] [id number] Rn Camp: RENATA Foley MD, Phone: [phone] URINE CULTURE RES 1 Final Klebsiella pneumoniae Greater than 100,000 colony forming units per mL Cefazolin <=4 ug/mL Cefazolin with an BISHOP <=16 predicts susceptibility to the oral agents cefaclor, cefdinir, cefpodoxime, cefprozil, cefuroxime, cephalexin, and loracarbef when used for therapy of uncomplicated urinary tract infections due to E. coli, Klebsiella pneumoniae, and Proteus mirabilis. ANTIMICROBIAL SUSCEPTIBILITY Final Comment S = Susceptible; I = Intermediate; R = Resistant P = Positive; N = Negative MICS are expressed in micrograms per mL Antibiotic RSLT#1 RSLT#2 RSLT#3 RSLT#4 Amoxicillin/Clavulanic Acid S =8 Ampicillin R =R Cefepime S<=0.12 Ceftriaxone S<=0.25 Cefuroxime S<=1 Ciprofloxacin S<=0.25 Ertapenem S<=0.12 Gentamicin S<=1 Imipenem S =0.5 Levofloxacin S<=0.12 Meropenem S<=0.25 Nitrofurantoin I =64 Piperacillin/Tazobactam S<=4 Tetracycline S<=1 Tobramycin S<=1 Trimethoprim/Sulfa S<=20 [facility] [address] [facility] [address], [place], [place] [id number] Objective Assessment Gram-negative sepsis from 10/12. Klebsiella Urinary tract infection from 10/12 w/ Klebsiella (R amp, I NTF) History of retention, status post coude placement on the 16 of August and has had previous infections, states the last time he had antibiotics was about 2 months ago. Leukocytosis, better. Fever. Status post fall with rhabdomyolysis. History of sick sinus syndrome, status post pacemaker. Plan Plan of Care po cipro supportive care pt/ot d/w dr King cov[place] to d/c to SNF probiotics KRYSTYNA LANDON MD October 19, 2018 10:06
--- NOTE | 2018-10-19 11:02 | NUR ---
SS following up with discharge planning. Pt accepted at [facility]. Pt's RN notified. SS will await [facility] and will proceed accordingly.
[2018-10-19 11:23] VITALS: BP 122/58
[2018-10-19] MEDS ORDERED: CIPR250T30 PO (13:57)
[2018-10-19] MEDS ORDERED: IPRA3AMP29 NEB (13:57)
[2018-10-19] MEDS ORDERED: FERR325T72 PO (13:58)
[2018-10-19] MEDS ORDERED: LACT1CAP19 PO (13:58)
[2018-10-19] MEDS ORDERED: ASCO500T2 PO (13:58)
[2018-10-19] MEDS ORDERED: ACET500T68 PO (13:58)
[2018-10-19] MEDS ORDERED: LABE200T4 PO (13:58)
--- NOTE | 2018-10-19 14:05 | PDOC3 ---
Discharge Summary [facility] Date of Admission: Oct 12, 2018 Discharge Date: October 19, 2018 Admitting Diagnosis uti, sepsis, rhabdo Final Diagnosis Rhabdomyolysis/Sepsis from gram negative rods CONSULTS ID, cardiology Procedures none Brief Hospital Course Mr. Jessica is a 83 old who presented with: 1. Sepsis with UTI - Blood and Urine cultures positive for Klebsiella, changed to po cipro after initially on Cefepime. 2. rhabdomyolysis from laying on the floor at home for 5 hrs before allowing his to call an ambulance - CK now normal, IVF d/pj. 3. HTN - atenolol changed to labetolol. 4. hypokalemia - resolved with replacement. 5. CAD - stable, continue Plavix, ASA stopped due to fall risk. 6. chronic urinary retention - stable, has Gonzalez at present but self caths at home. 7. debility - fall at home PT/OT recommending SNU, pt knows he is weak and has agreed to transfer 8. anemia - iron low and on replacement, B12 normal 9. atelectasis per chest Xray caused fever yesterday, added Duoneb and IS Patient History: FH: heart attack Disposition SNU CONDITION AT DISCHARGE: Improved, Stable Diet cardiac Scheduled Allopurinol (Allopurinol), 1 TAB PO HS, (Reported) Ascorbic Acid (Vitamin C), 500 MG PO DAILY Atorvastatin Calcium (Atorvastatin Calcium), 1 TAB PO HS, (Reported) Ciprofloxacin Hcl (Cipro), 500 MG PO BID Clopidogrel Bisulfate (Plavix), 1 TAB PO DAILY, (Reported) Ferrous Sulfate (Feosol), 325 MG PO DAILYWBKFT Gabapentin (Gabapentin ), 100 MG PO BID, (Reported) Gabapentin (Gabapentin ), 3 CAP PO HS, (Reported) Ipratropium/Albuterol Sulfate (Duoneb 0.5-3(2.5) Mg/3 Ml), 3 ML NEB RTQID Labetalol Hcl (Labetalol Hcl), 200 MG PO BID Lactobacillus Rhamnosus Gg (Culturelle), 1 CAP PO BID Lisinopril (Lisinopril), 0.5 TAB PO DAILY, (Reported) Multivitamin (Multivitamins), 1 TAB PO DAILY, (Reported) Nifedipine (Nifedipine Er), 1 TAB PO DAILY, (Reported) [place]-3 Fatty Acids/Fish Oil (Fish Oil 1,000 Mg Capsule), 1 EACH PO DAILY, (Reported) Scheduled PRN Acetaminophen (Acetaminophen), 1,000 MG PO PRN Q6HRS PRN for MILD PAIN Colchicine (Colcrys), 1 TAB PO PRN BID PRN for SEE COMMENTS, (Reported) Discontinued Medications Aspirin (Aspirin), 1 TAB PO DAILY, (Reported) Atenolol (Atenolol), 0.5 TAB PO BID, (Reported) Bupropion Hcl (Bupropion Xl), 1 TAB PO DAILY, (Reported) Hydroxyzine Hcl (Hydroxyzine Hcl), 10 MG PO HS, (Reported) Lidocaine/Prilocaine (Lidocaine-Prilocaine Cream), 1 ART TP TID, (Reported) Meloxicam (Meloxicam), 1 TAB PO DAILY, (Reported) Naproxen (Naprosyn), 1 TAB PO BID, (Reported) Ropinirole Hcl (Requip), 1 TAB PO BID, (Reported) Follow Up 1-2 weeks after SNU discharge Gamaliel POLLARD MD October 19, 2018 14:05
--- NOTE | 2018-10-19 14:08 | SNU/HH DC ---
DISCHARGE ORDERS DISCHARGE INFORMATION: DISCHARGE DATE: October 19, 2018 FINAL DIAGNOSIS Rhabdomyolysis/gram negative gregorio sepsis CONDITION ON DISCHARGE: Stable CODE STATUS: Code Status: DNR/DNI HALF-WAY: SNF STAY <30 DAYS: Yes POST DISCHARGE ORDERS: ACTIVITY ORDERS: Other, see below DIET AFTER DISCHARGE: Cardiac FOLLOW-UP: PHYSICIAN FOLLOW-UP: 1-2 weeks after SNU discharge TREATMENT/EQUIPMENT ORDERS: ADAPTIVE EQUIPMENT NEEDED: None Physical Therapy For: Evalulation/Treatment Occupational Therapy For: Evaluation/Treatment DISCHARGE MEDICATIONS: Home Meds Active Scripts Ascorbic Acid (VITAMIN C) 500 Mg Tablet, 500 MG PO DAILY for nutrition for 30 Days, #30 TAB Prov:Gamaliel POLLARD MD 10/19/18 Lactobacillus Rhamnosus Gg (CULTURELLE) 1 Each Cap.sprink, 1 CAP PO BID for bowels for 10 Days, #20 CAP Prov:Gamaliel POLLARD MD 10/19/18 Acetaminophen (ACETAMINOPHEN) 500 Mg Tablet, 1000 MG PO PRN Q6HRS PRN for MILD PAIN for 30 Days, #100 TAB Prov:Gamaliel POLLARD MD 10/19/18 Labetalol Hcl (LABETALOL HCL) 200 Mg Tablet, 200 MG PO BID for bp for 30 Days, #60 TAB Prov:Gamaliel POLLRAD MD 10/19/18 Ferrous Sulfate (FEOSOL) 325 Mg Tablet, 325 MG PO DAILYWBKFT for anemia for 30 Days, #30 TAB Prov:Gamaliel POLLARD MD 10/19/18 Ipratropium/Albuterol Sulfate (DUONEB 0.5-3(2.5) MG/3 ML) 3 Ml Ampul.neb, 3 ML NEB RTQID for copd for 30 Days, #120 EACH Prov:Gamaliel POLLARD MD 10/19/18 Ciprofloxacin Hcl (CIPRO) 250 Mg Tablet, 500 MG PO BID for sepsis for 8 Days, #32 TAB Prov:Gamaliel POLLARD MD 10/19/18 Reported Medications [place]-3 Fatty Acids/Fish Oil (FISH OIL 1,000 MG CAPSULE) 1 Each Capsule, 1 EACH PO DAILY for supplement, CAP 10/12/18 Lisinopril (LISINOPRIL) 40 Mg Tablet, 0.5 TAB PO DAILY for HTN, #30 TAB 5 Refills 08/16/18 Gabapentin (GABAPENTIN ) 400 Mg Capsule, 3 CAP PO HS for NEUROGENIC PAIN, CAP 08/16/18 Gabapentin (GABAPENTIN ) 100 Mg Capsule, 100 MG PO BID for Neuropathy, CAP 08/16/18 Clopidogrel Bisulfate (PLAVIX) 75 Mg Tablet, 1 TAB PO DAILY for Stents, #90 TAB 1 Refill 08/16/18 Atorvastatin Calcium (ATORVASTATIN CALCIUM) 40 Mg Tablet, 1 TAB PO HS for Cholesterol, #30 TAB 5 Refills 08/16/18 Allopurinol (ALLOPURINOL) 300 Mg Tablet, 1 TAB PO HS for Gout, #30 TAB 5 Refills 08/16/18 Multivitamin (MULTIVITAMINS) 1 Each Tablet, 1 TAB PO DAILY, #90 TAB 3 Refills 08/30/15 Colchicine (COLCRYS) 0.6 Mg Tablet, 1 TAB PO PRN BID PRN for SEE COMMENTS, #30 TAB 3 Refills onset of gout symptoms 08/30/15 Nifedipine (NIFEDIPINE ER) 60 Mg Tab.er.24, 1 TAB PO DAILY, #30 TAB 5 Refills 08/30/15 Discontinued Reported Medications Naproxen (NAPROSYN) 500 Mg Tablet, 1 TAB PO BID for pain, #60 TAB 1 Refill 10/12/18 Atenolol (ATENOLOL) 25 Mg Tablet, 0.5 TAB PO BID for blood pressure, #30 TAB 5 Refills 10/12/18 Aspirin (ASPIRIN) 81 Mg Tab.chew, 1 TAB PO DAILY, #30 TAB 3 Refills 03/02/16 Ropinirole Hcl (REQUIP) 1 Mg Tablet, 1 TAB PO BID for restless leg syndrome, #30 TAB 2 Refills 08/16/18 Meloxicam (MELOXICAM) 7.5 Mg Tablet, 1 TAB PO DAILY for pain and inflammation., #30 TAB 2 Refills 08/16/18 Lidocaine/Prilocaine (LIDOCAINE-PRILOCAINE CREAM) 30 Gm Cream..g., 1 ART TP TID for feet pain., #30 GM 1 Refill 08/16/18 Hydroxyzine Hcl (HYDROXYZINE HCL) 10 Mg Tablet, 10 MG PO HS, TAB 08/30/15 Bupropion Hcl (BUPROPION XL) 150 Mg Tab.er.24h, 1 TAB PO DAILY, #30 TAB 08/30/15 Gamaliel POLLARD MD October 19, 2018 14:08
[2018-10-19 15:00] VITALS: BP 145/63
--- NOTE | 2018-10-19 15:29 | NUR ---
SS following up with discharge planning. Discharge orders received for [facility]. SS phoned and faxed discharge orders to [facility], ; fax [phone]. Pt will discharge today and go to [facility] between 1700 and 1730 via [facility]. Pt, pt's RN, and pt's son notified.
--- NOTE | 2018-10-19 17:33 | NUR ---
Discharge Note: RUTH ANN SALVADOR Discharge instructions and discharge home medications reviewed with Other facility and a copy given. All questions have been answered and understanding verbalized. Gonzalez intact at time of discharge.
== END 2018-10-19 17:30 | DRG 871 ==
LOC: ER 17:03 → 2 NORTH 19:27
PROVIDERS: ADMIT Family Medicine; ATTEND Family Medicine
DX: A41.50 Gram-negative sepsis, unspecified (principal); I21.4 Non-ST elevation (NSTEMI) myocardial infarction; N39.0 Urinary tract infection, site not specified; M62.82 Rhabdomyolysis; E44.1 Mild protein-calorie malnutrition; J98.11 Atelectasis; I25.10 Atherosclerotic heart disease of native coronary artery without angina pectoris; I10 Essential (primary) hypertension; M10.9 Gout, unspecified; M19.90 Unspecified osteoarthritis, unspecified site; E78.5 Hyperlipidemia, unspecified; I73.9 Peripheral vascular disease, unspecified; Z96.611 Presence of right artificial shoulder joint; W18.39XA Other fall on same level, initial encounter; R31.9 Hematuria, unspecified; E87.6 Hypokalemia; M48.061 Spinal stenosis, lumbar region without neurogenic claudication; B96.1 Klebsiella pneumoniae [K. pneumoniae] as the cause of diseases classified elsewhere; D64.9 Anemia, unspecified; N40.1 Benign prostatic hyperplasia with lower urinary tract symptoms; Z98.1 Arthrodesis status; Z95.5 Presence of coronary angioplasty implant and graft; Z80.1 Family history of malignant neoplasm of trachea, bronchus and lung; Z95.0 Presence of cardiac pacemaker; Z85.828 Personal history of other malignant neoplasm of skin; Z87.891 Personal history of nicotine dependence; Z79.02 Long term (current) use of antithrombotics/antiplatelets; Z79.82 Long term (current) use of aspirin; Y92.009 Unspecified place in unspecified non-institutional (private) residence as the place of occurrence of the external cause; Y93.89 Activity, other specified; Y99.8 Other external cause status; Z68.28 Body mass index [BMI] 28.0-28.9, adult
CPT/HCPCS: 36415; 70450; 71045; 72125; 72128; 72131; 73070; 76770; 80048; 80053; 81001; 82550; 82553; 82607; 83540; 83550; 83605; 83735; 83880; 84484; 85007; 85025; 85027; 87040; 87077; 87086; 87186; 87205; 87804; 93005; 94640; 94760; 96361; 96374; G0238; J0692; J0696; J1956; J3490; J7030; J7620; 97110; 97116; 97530; 97535; 99285-25

== ENCOUNTER → 2019-12-20 | Outpatient (CLI) | payer MEDICARE ==
[~2019-12-20] MED LIST changes: +ACET500T68 PO; +ASCO500T4 PO; +CIPR250T30 PO; +FERR325T72 PO; +IPRA3AMP29 NEB; +LABE200T4 PO; +LACT1CAP19 PO; +MULT-445 PO; -MULT1TAB52 PO; +NAPR-683 PO; -NIFE60TA16 PO; +NIFE60TA90 PO; +OMEG1CAP6 PO
--- NOTE | 2019-12-20 17:47 | RAD ---
MR#: [id number] Date of Study: 12/20/2019 Ordering Physician: ANGELA OSBORN, Referring Physician: ANGELA OSBORN Tech: Eileen Walker RDMS, RVT, RTR APPROVED REPORT Patient Location: OUT-PATIENT VEL[facility]ITY [facility] DOPPLER WAVEFORM ANALYSIS RIGHT cm/secWaveformSeverity LEFT cm/secWaveform Severity pCFA 149.0pCFA 118.3 dCFA 126.8dCFA 149.4 Prof Fem Art. 372.5Prof Fem Art. 377.9 Fem Art Prox. 250.9Fem Art Prox. 164.3 Fem Art Mid. 93.3Fem Art Mid. 75.9 Fem Art Dist. 164.9Fem Art Dist. 92.5 Pop Art(AK) 91.6Pop Art(AK) 88.9 Pop Art(BK) 165.8Pop Art(BK) 157.8 HELP DESK SUPPORT SPECIALIST Prox. 53.4PTA Prox. 40.5 HELP DESK SUPPORT SPECIALIST Mid.OccludedPTA Mid. HELP DESK SUPPORT SPECIALIST Dist. HELP DESK SUPPORT SPECIALIST Dist. 22.7 Per Art Prox. 170.8Per Art Prox. 110.4 HA Prox. 77.7ATA Prox. 31.0 DPA 42DPA 82 Findings Grayscale images of the bilateral lower extremity arterial vessels demonstrate severe diffuse calcifi c plaque. On the right side there is likely a greater than 75% stenosis involving the profunda femoris artery. Probable greater than 50% stenosis involving the proximal SFA. Below the knee the posterior tibial artery demonstrates reversed flow likely due to a more proximal occlusion. Likely greater than 50% s tenosis involving the peroneal artery. Normal anterior tibial velocities noted. On the left there is again likely a greater than 75% stenosis involving the profunda femoris. No foc al high-grade stenosis identified in the [employer]PH[employer]IMMER and SFA. Cannot rule out greater than 50% stenosis invo lving the popliteal artery. Diminished flow velocities below the knee but patent three-vessel runoff noted. Critical Notification Critical Value: No <Conclusion> 1. 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 Signed by : Keyshawn Hugo, Electronically Approved : 12/20/2019 17:46:40
--- NOTE | 2019-12-20 18:00 | CARD ---
MR#: [id number] Date of Study: 12/20/2019 Ordering Physician: ANGELA OSBORN, Referring Physician: ANGELA OSBORN, Tech: Eileen Read APPROVED REPORT EXAM: Two-dimensional and M-mode echocardiogram with Doppler and color Doppler. Other Information Rhythm : Pacemaker INDICATION Cardiac Disease: CAD Surgery/Intervention Pacemaker: Date: 2015 RISK FACTORS Hypertension 2D DIMENSIONS Left Atrium(2D)3.3 (1.6-4.0cm)IVSd1.2 (0.7-1.1cm) Aortic Root(2D)3.8 (2.0-3.7cm)LVDd4.9 (3.9-5.9cm) LVOT Diameter2.1 (1.8-2.4cm)PWd1.2 (0.7-1.1cm) LVDs3.1 (2.5-4.0cm)FS (%) 36.9 % SV74.9 mlLVEF(%)66.6 (>50%) Aortic Valve AoV Peak Jose.118.8cm/sAoV VTI26.7cm AO Peak GR.5.6mmHgLVOT Peak Jose.99.2cm/s LVOT VTI 23.57cmAO Mean GR.3mmHg BETH (VMAX)2.82gs5NPR (VTI)2.96cm2 Mitral Valve MV E Hewpuhvd16.9cm/sMV DECEL SKFR023co MV A Hfeqhmte89.9cm/sMV E Mean Gr.1mmHg MV KDT57zgF/A Ratio0.7 MVA (PHT)2.62cm2 TDI E/Lateral E'7.0E/Medial E'7.3 Pulmonary Valve PV Peak Rdaijorv11.4cm/sPV Peak Grad.3mmHg Tricuspid Valve TR P. Tjztumml219ii/sRAP SSOLOMZV6mrBz TR Peak Gr.11joOuVFEB56ziVu Pulmonary Vein S1 Kbznegsg98.7cm/sD2 Khsjcrkv46.8cm/s PVa xtpcgjzn189ofqo LEFT VENTRICLE The left ventricle is normal size. There is borderline to mild concentric left ventricular hypertroph y. The left ventricular systolic function is normal and the ejection fraction is within normal range. The Ejection Fraction is 55-60%. There is normal LV segmental wall motion. Transmitral Doppler flow pattern is Grade I-abnormal relaxation pattern. RIGHT VENTRICLE The right ventricle is normal size. There is normal right ventricular wall thickness. The right ventr icular systolic function is normal. There is a pacemaker lead in the right ventricle. ATRIA The left atrium size is normal. The right atrium size is normal. The interatrial septum is intact wit h no evidence for an atrial septal defect or patent foramen ovale as noted on 2-D or Doppler imaging. AORTIC VALVE The aortic valve is thickened but opens well. Doppler and Color Flow revealed trace aortic regurgitat ion. Calculated aortic valve area is 3.2 cm2 with maximum pressure gradient of 6 mmHg and mean pressu re gradient of 3 mmHg. There is no significant aortic valvular stenosis. MITRAL VALVE The mitral valve is normal in structure and function. There is no evidence of mitral valve prolapse. There is no mitral valve stenosis. Doppler and Color-flow revealed trace mitral regurgitation. TRICUSPID VALVE The tricuspid valve is normal in structure and function. Doppler and Color Flow revealed trace tricus pid regurgitation with an estimated PAP of 31 mmHg. There is no tricuspid valve stenosis. PULMONIC VALVE The pulmonic valve is not well visualized. Doppler and Color Flow revealed no pulmonic valvular regur gitation. There is no pulmonic valvular stenosis. GREAT VESSELS The aortic root is normal in size. The IVC is normal in size and collapses >50% with inspiration. PERICARDIAL EFFUSION There is no evidence of significant pericardial effusion. Critical Notification Critical Value: No <Conclusion> The left ventricular systolic function is normal and the ejection fraction is within normal range. Th e Ejection Fraction is 55-60%. There is normal LV segmental wall motion. Signed by : Keyshawn Hugo, Electronically Approved : 12/20/2019 18:00:25
== END | disposition home or self-care (01) ==
LOC: ECHO 09:03
PROVIDERS: ATTEND Internal Medicine Cardiovascular Disease
DX: I25.10 Atherosclerotic heart disease of native coronary artery without angina pectoris (principal); I70.293 Other atherosclerosis of native arteries of extremities, bilateral legs; I51.7 Cardiomegaly; Z95.0 Presence of cardiac pacemaker
CPT/HCPCS: 93306; 93925

== ENCOUNTER → 2020-01-12 | Outpatient (CLI) | payer MEDICARE ==
[~2020-01-12] MED LIST changes: +CEFP200T PO; +CITR30IR IR; +FOSF3PAC PO; +HYDR10SY16 PO; +ROPI1TAB4 PO; +TERBINAFINE 1% TOP
== END | disposition home or self-care (01) ==
LOC: OPS 13:15
PROVIDERS: ATTEND Internal Medicine Cardiovascular Disease
DX: Z11.59 Encounter for screening for other viral diseases (principal)
CPT/HCPCS: U0003-CS

== ENCOUNTER 2020-01-16 06:52 | Outpatient (CLI) | payer MEDICARE ==
[~2020-01-16] VITALS: Ht 170.2 cm; Wt 86.2 kg
[2020-01-16] VITALS (10 sets, daily range): BP systolic 131–155; BP diastolic 64–77
[~2020-01-16 06:52] MED LIST changes: -CEFP200T PO; -CITR30IR IR; -FOSF3PAC PO; -HYDR10SY16 PO; -ROPI1TAB4 PO; -TERBINAFINE 1% TOP
[2020-01-16 07:16] LABS: HEMATOCRIT 33.7 % (39.0-53.0); HEMOGLOBIN 11.9 g/dL (13.0-17.5); RED BLOOD COUNT 3.52 x10^6/uL (4.30-5.70); RED CELL DISTRIBUTION WIDTH 14.1 % (11.5-14.5); WHITE BLOOD COUNT 4.8 x10^3/uL (4.0-11.0)
[2020-01-16 07:26] LABS: PROTHROMBIN TIME PATIENT 13.2 SEC (11.7-14.0)
[2020-01-16 07:29] LABS: CREATININE 1.3 mg/dL (0.7-1.3); GFR 52.7
[2020-01-16] MEDS ORDERED: IODIXANOL 320 MG/ML 100 ML VIAL. ONE (07:40)
[2020-01-16] MEDS ORDERED: LIDOCAINE 1% Multi-Dose 20 ML VIAL. ONE (07:40)
[2020-01-16] MEDS ORDERED: ROPI1TAB4 PO (08:11)
[2020-01-16] MEDS ORDERED: CITR30IR IR (08:11)
[2020-01-16] MEDS ORDERED: CEFP200T PO (08:11)
[2020-01-16] MEDS ORDERED: ASPI-630 PO (08:11)
[2020-01-16] MEDS ORDERED: ATEN50TA PO (08:11)
[2020-01-16] MEDS ORDERED: TERBINAFINE 1% TOP (08:11)
[2020-01-16] MEDS ORDERED: HYDR10SY16 PO (08:11)
[2020-01-16] MEDS ORDERED: FOSF3PAC PO (08:11)
[2020-01-16] MEDS ORDERED: ATOR40TA59 PO (08:11)
[2020-01-16] MEDS ORDERED: BUPR150T6 PO (08:11)
[2020-01-16] MEDS ORDERED: MIDAZOLAM HCL/PF 2 MG/2 ML VIAL. ONE (08:40)
[2020-01-16] MEDS ORDERED: fentaNYL PF VIAL 100 MCG/2 ML VIAL ONE (08:40)
[2020-01-16] MEDS ORDERED: IODIXANOL 320 MG/ML 100 ML VIAL. IART ONE (09:15)
[2020-01-16] MEDS ORDERED: fentaNYL PF VIAL 100 MCG/2 ML VIAL IV ONE (09:15)
[2020-01-16] MEDS ORDERED: MIDAZOLAM HCL/PF 2 MG/2 ML VIAL. IV ONE (09:15)
[2020-01-16] MEDS ORDERED: LIDOCAINE 1% Multi-Dose 20 ML VIAL. INJ ONE (09:15)
[2020-01-16] MEDS ORDERED: CONTRAST GIVEN. MC PRN (09:30)
--- NOTE | 2020-01-16 10:44 | CARD ---
MR#: [id number] Date of Study: 01/16/2020 Ordering Physician: ANGELA OSBORN, Referring Physician: ANGELA OSBORN, Tech: VIRGINIA WILLARDCHARLIE RTR APPROVED REPORT Patient StatusOUT-PATIENT Services Tech: VIRGINIA LANDERS RTR Procedure(s) performed: Aortogram with bilateral lower extremity runoff MODERATE SEDATION TIME: 40 MINUTES FLUORO TIME: 6.0 MIN DOSE: 49.8 GYCM2 CONTRAST: 92CC VISI INDICATION FOR PROCEDURE The indication(s) include : Peripheral artery disease with claudication and abnormal arterial duplex scan. PROCEDURE NARRATIVE After explaining the risks, benefits and alternative options, informed consent was obtained from prosper ent. Patient was brought to the cardiac [employer] and his right groin was prepped and draped in the u sual fashion. 20 cc of 2% lidocaine was infiltrated into the skin and subcutaneous tissues for local anesthesia. Arterial access was obtained in the right common femoral artery and a 5 Polish sheath w as inserted. 5 Polish Omni Flush catheter was then used to perform aortoiliac angiography. The cath eter was then advanced over the aortic abby with the help of a Glidewire advantage guidewire and wi th the tip positioned in the left external iliac artery, selective left lower extremity angiography w as performed. Contrast injections were performed through the sheath in the right groin for selective right lower extremity angiography. Patient tolerated the procedure well. Hemostasis was achieved u sing Angio-Seal. There is no immediate complications. FINDINGS 1. No significant stenosis involving the distal descending aorta. 2. No significant stenosis involving bilateral common and external iliac arteries. 3. No significant stenosis involving bilateral common femoral arteries. 4. The right superficial femoral artery showed 30% stenosis in the proximal segment and 30% stenosis in the mid to distal segment. The left superficial femoral artery showed a stent in the midsegment with 20% in-stent restenosis. 5. The right popliteal artery showed 20 to 30% stenosis. The left popliteal artery showed 20% steno sis. 6. The left tibioperoneal trunk showed 30% stenosis at the bifurcation. The left posterior tibial a rtery showed 100% chronic total occlusion. The right anterior tibial artery showed 90% stenosis in t he proximal segment and 90% stenosis in the proximal to mid segment. The peroneal artery was patent without any significant stenosis. 7. The right posterior tibial artery showed 100% chronic total occlusion. The right antecubital art madeleine showed 70% stenosis in the proximal segment and 100% occlusion in the midsegment with reconstitut ion in the mid to distal segment from collaterals. The right peroneal artery was patent without any significant stenosis. Conclusion No significant major vessel stenosis with patent previously placed stent in the left superficial femo ral artery. Patient had below the knee disease bilaterally as described above. Recommendations Since patient has claudication without any nonhealing wounds, we will manage below the knee periphera l artery disease conservatively. Patient was recommended regular exercise regimen. Signed by : Angela Osborn, Electronically Approved : 01/16/2020 10:44:08
--- NOTE | 2020-01-16 11:54 | NUR ---
Discharge Note: RUTH ANN SALVADOR Discharge instructions and discharge home medications reviewed with Patient and a copy given. All questions have been answered and understanding verbalized. The following instructions and handouts were given: Moderate sedation and Groin site care. Discontinued lines and drains: Left AC IV dc'd and tip intact. Patient discharged to home with son via personal vehicle.
--- NOTE | 2020-01-16 12:07 | RAD ---
MR#: [id number] Date of Study: 01/16/2020 Ordering Physician: ANGELA OSBORN, Referring Physician: ANGELA OSBORN, Tech: Bismark Hoffman MBA, RDMS, RVT, RDCS, RTR APPROVED REPORT Patient Location: OUT-PATIENT Laterality:Bilateral Indications Bruit PVD Doppler Spectral Velocity Analysis Right Left pCCA 65/12 cm/spCCA 93/13 cm/s mCCA 63/13 cm/smCCA 78/10 cm/s dCCA 67/14 cm/sdCCA 71/11 cm/s Bulb 60/13 cm/sBulb 71/17 cm/s ECA 69/ cm/sECA 66/ cm/s pICA 84/19 cm/spICA 78/9 cm/s Melissa 65/17 cm/smICA 45/11 cm/s dICA 63/14 cm/sdICA 63/17 cm/s Vert. 43/ cm/sVert. 48/ cm/s Subcl. 76/ cm/sSubcl. 80/ cm/s ICA/CCA 1.25ICA/CCA 0.84 Findings Grayscale images of the bilateral carotid vessels demonstrates moderate diffuse plaque. No focal obs truction is noted. Velocities are within normal limits and overall consistent with 0 to less than 50% stenosis. Normal ICA to CCA ratios bilaterally. Normal antegrade vertebral velocities bilaterally. Critical Notification Critical Value: No <Conclusion> 1. No significant carotid occlusive disease bilaterally. Signed by : Keyshawn Hugo, Electronically Approved : 01/16/2020 12:07:18
== END 2020-01-16 12:22 | disposition home or self-care (01) ==
LOC: CCL 06:52
PROVIDERS: ATTEND Internal Medicine Cardiovascular Disease
DX: I73.89 Other specified peripheral vascular diseases (principal); I70.8 Atherosclerosis of other arteries; I10 Essential (primary) hypertension; M10.9 Gout, unspecified; R09.89 Other specified symptoms and signs involving the circulatory and respiratory systems; E78.5 Hyperlipidemia, unspecified; Z98.890 Other specified postprocedural states; Z88.8 Allergy status to other drugs, medicaments and biological substances; Z79.899 Other long term (current) drug therapy
CPT/HCPCS: 36246; 36415; 75625; 75716; 80048; 85027; 85610; 93880; 99152; 99153; C1760; C1769; C1892; J1644; J2250; J3010; J3490; Q9967; G0269; C1771

== ENCOUNTER → 2021-04-03 | Outpatient (CLI) | payer MEDICARE ==
[2020-01-16 11:23] VITALS: BP 154/77
[~2021-04-03] MED LIST changes: +BUPR150T21 PO; -BUPR150T6 PO; +CEFP200T PO; +CITR30IR IR; +FOSF3PAC6 PO; +HYDR10SY16 PO; -LIDO30CR TP; +LIDO30CR2 TP; +ROPI1TAB4 PO; +TERBINAFINE 1% TOP
--- NOTE | 2021-04-03 16:36 | CARD ---
MR#: [id number] Date of Study: 04/03/2021 Ordering Physician: ANGELA BOOTH, Referring Physician: ANGELA BOOTH, Tech: Eileen Read [facility] APPROVED REPORT EXAM: Two-dimensional and M-mode echocardiogram with Doppler and color Doppler. Other Information Quality : AverageHR: 60bpm Rhythm : Pacemaker INDICATION Cardiac Disease: CAD Surgery/Intervention Pacemaker: Date: 2013 RISK FACTORS Hypertension Hyperlipidemia 2D DIMENSIONS RVDd2.6 (2.9-3.5cm)Left Atrium(2D)3.5 (1.6-4.0cm) IVSd1.2 (0.7-1.1cm)Aortic Root(2D)3.6 (2.0-3.7cm) LVDd5.1 (3.9-5.9cm)LVOT Diameter2.1 (1.8-2.4cm) PWd1.2 (0.7-1.1cm)LVDs3.3 (2.5-4.0cm) FS (%) 34.5 %SV78.4 ml LVEF(%)63.3 (>50%) Aortic Valve AoV Peak Jose.143.8cm/sAoV VTI32.1cm AO Peak GR.8.3mmHgLVOT Peak Jose.121.7cm/s LVOT VTI 28.56cmAO Mean GR.5mmHg BETH (VMAX)2.29sr1IQE (VTI)3.11cm2 AI P 1/2 Fbnv602yo Mitral Valve MV E Oowgqugy04.5cm/sMV DECEL CAWC453gh MV A Mbxqtdxh15.5cm/sMV E Mean Gr.1mmHg MV IQJ92eoJ/A Ratio1.1 MVA (PHT)3.31cm2 TDI E/Lateral E'10.3E/Medial E'10.3 Pulmonary Valve PV Peak Rhpygmxq946.8cm/sPV Peak Grad.5mmHg Tricuspid Valve TR P. Vqcipjen298jx/sRAP QGYFDZLC1dgBy TR Peak Gr.24yaEzZECK92qnYa Pulmonary Vein S1 Dnldglgh20.7cm/sD2 Lebzizog96.6cm/s PVa ffnmjxik302oygw LEFT VENTRICLE The left ventricle is normal size. There is mild concentric left ventricular hypertrophy. The left ve ntricular systolic function is normal. The Ejection Fraction is 55-60%. There is normal LV segmental wall motion. Transmitral Doppler flow pattern is Grade II-pseudonormal filling dynamics. RIGHT VENTRICLE The right ventricle is normal size. There is normal right ventricular wall thickness. The right ventr icular systolic function is normal. ATRIA The left atrium is borderline dilated. The right atrium size is normal. The interatrial septum is int act with no evidence for an atrial septal defect or patent foramen ovale as noted on 2-D or Doppler i maging. AORTIC VALVE The aortic valve is normal in structure and function. Doppler and Color Flow revealed trace aortic re gurgitation. There is no significant aortic valvular stenosis. Calculated aortic valve area is 3.27 c m2 with maximum pressure gradient of 9 mmHg and mean pressure gradient of 5 mmHg. MITRAL VALVE The mitral valve is normal in structure and function. There is no evidence of mitral valve prolapse. There is no mitral valve stenosis. Doppler and Color-flow revealed trace mitral regurgitation. TRICUSPID VALVE The tricuspid valve is normal in structure and function. Doppler and Color Flow revealed trace to mil d tricuspid regurgitation with an estimated PAP of 36 mmHg. There is no tricuspid valve stenosis. PULMONIC VALVE The pulmonic valve is not well visualized. Doppler and Color Flow revealed trace pulmonic valvular re gurgitation. GREAT VESSELS The aortic root is normal in size. The IVC is normal in size and collapses >50% with inspiration. PERICARDIAL EFFUSION There is no evidence of significant pericardial effusion. Critical Notification Critical Value: No <Conclusion> The left ventricular systolic function is normal. The Ejection Fraction is 55-60%. There is normal LV segmental wall motion. Trace mitral regurgitation. Trace to mild tricuspid regurgitation with an estimated PAP of 36 mmHg. There is no evidence of significant pericardial effusion. Signed by : Angela Booth, Electronically Approved : 04/03/2021 16:35:42
== END ==
LOC: ECHO 11:48
PROVIDERS: ATTEND Internal Medicine Cardiovascular Disease
DX: I36.1 Nonrheumatic tricuspid (valve) insufficiency (principal); I25.10 Atherosclerotic heart disease of native coronary artery without angina pectoris
CPT/HCPCS: 93306